=== PATIENT | female | born 1955 | race Hispanic/Latino ===

== ENCOUNTER 2018-07-27 03:24 | Emergency (ER) | payer SELFPAY ==
[2012-03-28 12:02] VITALS: BP 110/68
[2018-07-27] MEDS ORDERED: NA CHLORIDE 0.9% 1,000 ML ONE (03:57)
[2018-07-27] MEDS ORDERED: MORPHINE 4 MG/ML SYR ONE (03:57)
[2018-07-27] MEDS ORDERED: ONDANSETRON 4 MG/2 ML VIAL ONE (03:57)
[2018-07-27 04:00] LABS: Absolute Lymphocytes (CBC) 1.3 K/uL (0.7-4.9); Absolute Monocytes 0.6 K/uL (0.1-1.3); Absolute Neutrophil 5.2 K/uL (1.8-8.0); Basophils % 0.6 % (0-1.3); Eosinophils % 1.9 % (0-4.4); Hematocrit 41.2 % (36.0-45.0); Lymphocytes % 17.6 % (15.3-44.8); MCH 30.9 pg (27.0-35.0); MCV 90.6 fL (80-100); MPV 10.6 fL (7.6-11.3); Monocytes % 8.7 % (3.3-12.3); Protime INR 1.02; RBC Red Blood Cell Count 4.55 M/uL (3.86-4.86)
[2018-07-27 04:28] LABS: ALT/SGPT 25 U/L (12-78); AST/SGOT 16 U/L (15-37); Albumin 3.1 g/dL (3.4-5.0); Alkaline Phosphatase 145 U/L (45-117); BUN Blood Urea Nitrogen 11 mg/dL (7-18); Bicarbonate 25 mmol/L (21-32); Bilirubin Direct 0.2 mg/dL (0-0.2); Bilirubin Total 0.4 mg/dL (0.2-1.0); Lipase 208 U/L (73-393); Magnesium 1.8 mg/dL (1.8-2.4); NT PRO-BNP 20 pg/mL (<125); Protein, Total 7.1 g/dL (6.4-8.2); Sodium Level 136 mmol/L (136-145); Troponin (Emerg Dept Use Only) < 0.02 ng/mL (0.0-0.045)
[2018-07-27 04:29] LABS: Glucose Level 421 mg/dL (74-106)
[2018-07-27] MEDS ORDERED: INSULIN -REGULAR HUMAN 50 UNIT/0.5 ML ML ONE (05:06)
--- NOTE | 2018-07-27 05:21 | EDPHYS ---
Physician Documentation [facility] Name: Latoya Pfeiffer Age: 62 yrs Sex: Female : 1955 Arrival Date: 07/27/2018 Time: 03:26 Bed 15 Private MD: ED Physician Sriram Erazo HPI: 07/27 03:35 This 62 yrs old Female presents to ER via EMS with complaints of chest wall sandra pain,since hug. 03:35 The patient or guardian reports chest pain that is located primarily in the anterior sandra chest wall. Onset: 3 day(s) ago. The pain does not radiate. The patient or guardian reports chest pain that is located primarily in the substernal area, anterior chest wall. Onset: The symptoms/episode began/occurred 3 day(s) ago. The pain does not radiate. Associated signs and symptoms: The patient has no apparent associated signs or symptoms. Historical: - Allergies: 03:20 No Known Allergies; cc3 - PMHx: 03:20 Anxiety; Diabetes - NIDDM; insomnia; cc3 - PSHx: 03:20 ; abdominal tumor removal; Tubal ligation; hernia operations; Cholecystectomy; cc3 Hysterectomy; - Immunization history:: Adult Immunizations not up to date. - Social history:: Smoking status: Patient/guardian denies using tobacco, never smoked. - Family history:: not pertinent. - Ebola Screening: : No symptoms or risks identified at this time. ROS: 03:35 Constitutional: Negative for fever, chills, and weight loss, Eyes: Negative for injury, sandra pain, redness, and discharge, ENT: Negative for injury, pain, and discharge, Neck: Negative for injury, pain, and swelling, Respiratory: Negative for shortness of breath, cough, wheezing, and pleuritic chest pain, Abdomen/GI: Negative for abdominal pain, nausea, vomiting, diarrhea, and constipation, Back: Negative for injury and pain, : Negative for injury, bleeding, discharge, and swelling, MS/Extremity: Negative for injury and deformity, Skin: Negative for injury, rash, and discoloration, Neuro: Negative for headache, weakness, numbness, tingling, and seizure, Psych: Negative for depression, anxiety, suicide ideation, homicidal ideation, and hallucinations, Allergy/Immunology: Negative for hives, rash, and allergies, Endocrine: Negative for neck swelling, polydipsia, polyuria, polyphagia, and marked weight changes, Hematologic/Lymphatic: Negative for swollen nodes, abnormal bleeding, and unusual bruising. 03:35 Cardiovascular: Positive for chest pain, with movement, of the chest. Exam: 03:35 Constitutional: This is a well developed, well nourished patient who is awake, alert, sandra and in no acute distress. Head/Face: Normocephalic, atraumatic. Eyes: Pupils equal round and reactive to light, extra-ocular motions intact. Lids and lashes normal. Conjunctiva and sclera are non-icteric and not injected. Cornea within normal limits. Periorbital areas with no swelling, redness, or edema. ENT: Nares patent. No nasal discharge, no septal abnormalities noted. Tympanic membranes are normal and external auditory canals are clear. Oropharynx with no redness, swelling, or masses, exudates, or evidence of obstruction, uvula midline. Mucous membranes moist. Neck: Trachea midline, no thyromegaly or masses palpated, and no cervical lymphadenopathy. Supple, full range of motion without nuchal rigidity, or vertebral point tenderness. No Meningismus. Cardiovascular: Regular rate and rhythm with a normal S1 and S2. No gallops, murmurs, or rubs. Normal PMI, no JVD. No pulse deficits. Respiratory: Lungs have equal breath sounds bilaterally, clear to auscultation and percussion. No rales, rhonchi or wheezes noted. No increased work of breathing, no retractions or nasal flaring. Abdomen/GI: Soft, non-tender, with normal bowel sounds. No distension or tympany. No guarding or rebound. No evidence of tenderness throughout. Back: No spinal tenderness. No costovertebral tenderness. Full range of motion. Skin: Warm, dry with normal turgor. Normal color with no rashes, no lesions, and no evidence of cellulitis. MS/ Extremity: Pulses equal, no cyanosis. Neurovascular intact. Full, normal range of motion. Neuro: Awake and alert, GCS 15, oriented to person, place, time, and situation. Cranial nerves II-XII grossly intact. Motor strength 5/5 in all extremities. Sensory grossly intact. Cerebellar exam normal. Normal gait. Psych: Awake, alert, with orientation to person, place and time. Behavior, mood, and affect are within normal limits. 03:35 Chest/axilla: Inspection: normal, Palpation: is normal, Axilla: are normal, no acute changes, Breasts: are normal, Lymph nodes: lymphadenopathy is not appreciated. Vital Signs: 03:20 BP 118 / 79; Pulse 80; Resp 20 S; Temp 98.4(O); Pulse Ox 97% on R/A; Weight 76.66 kg cc3 (R); Height 5 ft. (152.40 cm) (R); Pain 10/10; 04:15 BP 106 / 63; Pulse 77; Resp 20 S; Pulse Ox 96% on R/A; cc3 05:30 BP 108 / 62; Pulse 78; Resp 20 S; Pulse Ox 97% on R/A; cc3 06:05 BP 106 / 69; Pulse 74; Resp 18 S; Pulse Ox 97% on R/A; cc3 03:20 Body Mass Index 33.01 (76.66 kg, 152.40 cm) 3 MDM: 03:31 Patient medically screened. [facility] 03:38 Data reviewed: vital signs, nurses notes, lab test result(s), EKG, radiologic studies, [facility] CT scan, plain films. 07/27 03:34 Order name: Basic Metabolic Panel; Complete Time: 04:43 [facility] 07/27 03:34 Order name: CBC with Diff; Complete Time: 04:14 [facility] 07/27 03:34 Order name: LFT's; Complete Time: 04:43 [facility] 07/27 03:34 Order name: Magnesium; Complete Time: 04:43 [facility] 07/27 03:34 Order name: NT PRO-BNP; Complete Time: 04:43 [facility] 07/27 03:34 Order name: PT-INR; Complete Time: 04:14 [facility] 07/27 03:34 Order name: Troponin (emerg Dept Use Only); Complete Time: 04:43 [facility] 07/27 03:34 Order name: XRAY Chest (1 view) [facility] 07/27 03:34 Order name: Lipase; Complete Time: 04:43 [facility] 07/27 03:34 Order name: CT Chest For PE Angio [facility] 07/27 03:34 Order name: Urine Culture [facility] 07/27 05:23 Order name: Troponin (emerg Dept Use Only) [facility] 07/27 05:23 Order name: Troponin (Emerg Dept Use Only) [facility] 07/27 05:37 Order name: Urine Dipstick--Ancillary (enter results) 07/27 03:34 Order name: EKG; Complete Time: 03:36 [facility] 07/27 03:34 Order name: Cardiac monitoring; Complete Time: 03:41 [facility] 07/27 03:34 Order name: EKG - Nurse/Tech; Complete Time: 03:41 [facility] 07/27 03:34 Order name: IV Saline Lock; Complete Time: 03:44 [facility] 07/27 03:34 Order name: Labs collected and sent; Complete Time: 03:54 [facility] 07/27 03:34 Order name: O2 Per Protocol; Complete Time: 03:44 [facility] 07/27 03:34 Order name: O2 Sat Monitoring; Complete Time: 03:44 [facility] 07/27 03:34 Order name: Urine Dipstick-Ancillary (obtain specimen); Complete Time: 05:40 [facility] 07/27 04:15 Order name: INCENTIVE SPIROMETRY sandra Administered Medications: 03:50 Drug: NS 0.9% 1000 ml Route: IV; Rate: 125 ml/hr; Site: right antecubital; cc3 06:25 Follow up: Response: No adverse reaction; IV Intake: 250ml ; patient discharged home cc3 03:50 Drug: Zofran 4 mg Route: IVP; Site: right antecubital; cc3 04:15 Follow up: Response: No adverse reaction; Nausea is decreased cc3 03:55 Drug: morphine 2 mg Route: IVP; Site: right antecubital; cc3 04:30 Follow up: Response: No adverse reaction; Pain is decreased cc3 05:15 Drug: morphine 2 mg Route: IVP; Site: right antecubital; cc3 05:45 Follow up: Response: No adverse reaction; Pain is decreased cc3 05:15 Drug: Insulin Regular Human 10 units {Co-Signature: krishna (Selena Preciado RN).} Route: IVP; cc3 Site: right antecubital; 06:00 Follow up: Response: No adverse reaction cc3 05:20 Drug: Insulin Regular Human 6 units {Co-Signature: krishna (Selena Preciado RN).} Route: cc3 Sub-Q; Site: left upper arm; 06:00 Follow up: Response: No adverse reaction cc3 05:30 Drug: Zithromax 500 mg Route: PO; cc3 06:00 Follow up: Response: No adverse reaction cc3 Disposition: 07/27/18 05:20 Discharged to Home. Impression: Other chest pain, Contusion of front wall of thorax, Contusion of back wall of thorax, Type 2 diabetes mellitus. - Condition is Stable. - Discharge Instructions: Nonspecific Chest Pain, Chest Wall Pain, Type 2 Diabetes Mellitus, Diagnosis, Adult, Chest Wall Pain, [id number], Nonspecific Chest Pain, [id number], Aspirin and Your Heart, Type 2 Diabetes Mellitus, Diagnosis, Adult, Unmj-il-[id number], Type 2 Diabetes Mellitus, Self Care, Adult. - Prescriptions for Tylenol- Codeine #3 300-30 mg Oral Tablet - take 2 tablets by ORAL route every 6 hours As needed; 26 tablet. Motrin IB 200 mg Oral Tablet - take 2 tablet by ORAL route every 6 hours As needed as needed with food; 20 tablet. Zithromax 500 mg Oral Tablet - take 1 tablet by ORAL route once daily for 4 days; 4 tablet. - Medication Reconciliation Form, Thank You Letter, Antibiotic Education, Prescription Opioid Use, Work release form form. - Follow up: Private Physician; When: 2 - 3 days; Reason: Recheck today's complaints, Continuance of care, Re-evaluation by your physician. Follow up: Jono Weller; When: 2 - 3 days; Reason: Recheck today's complaints, Re-evaluation by your physician. - Problem is new. - Symptoms have improved. Signatures: Dispatcher [employer] EDFL Sriram Erazo MD MD cha Cordel, Charlene 3 Selena Preciado RN, ea Corrections: (The following items were deleted from the chart) 06:29 05:20 07/27/2018 05:20 Discharged to Home. Impression: Other chest pain; Contusion of cc3 front wall of thorax; Contusion of back wall of thorax; Type 2 diabetes mellitus. Condition is Stable. Discharge Instructions: Nonspecific Chest Pain, Chest Wall Pain, Type 2 Diabetes Mellitus, Diagnosis, Adult, Nonspecific Chest Pain, [id number], Aspirin and Your Heart, Type 2 Diabetes Mellitus, Diagnosis, Adult, Ulyp-qu-Jlwt, Chest Wall Pain, [id number]-[id number]. Prescriptions for Tylenol-Codeine #3 300-30 mg Oral Tablet - take 2 tablets by ORAL route every 6 hours As needed; 26 tablet, Motrin IB 200 mg Oral Tablet - take 2 tablet by ORAL route every 6 hours As needed as needed with food; 20 tablet. and Forms are Medication Reconciliation Form, Thank You Letter, Antibiotic Education, Prescription Opioid Use. Follow up: Private Physician; When: 2 - 3 days; Reason: Recheck today's complaints, Continuance of care, Re-evaluation by your physician. Follow up: Jono Weller; When: 2 - 3 days; Reason: Recheck today's complaints, Re-evaluation by your physician. Problem is new. Symptoms have improved. sandra
--- NOTE | 2018-07-27 05:21 | ER ---
Nurse's Notes [facility] Name: Latoya Pfeiffer Age: 62 yrs Sex: Female : 1955 Arrival Date: 07/27/2018 Time: 03:26 Bed 15 Private MD: Diagnosis: Other chest pain;Contusion of front wall of thorax;Contusion of back wall of thorax;Type 2 diabetes mellitus Presentation: 07/27 03:20 Presenting complaint: EMS states: Left sided chest pain since Wednesday. Transition of cc3 care: patient was not received from another setting of care. Onset of symptoms was July 23, 2018. Risk Assessment: Do you want to hurt yourself or someone else? Patient reports no desire to harm self or others. Initial Sepsis Screen: Does the patient meet any 2 criteria? No. Patient's initial sepsis screen is negative. Does the patient have a suspected source of infection? No. Patient's initial sepsis screen is negative. Care prior to arrival: Medication(s) given: ASA, 324 mg oral given by EMS. 03:20 Method Of Arrival: EMS: [facility] cc3 03:20 Acuity: LUCINA 3 cc3 Triage Assessment: 03:20 General: Appears in no apparent distress. uncomfortable, Behavior is calm, cooperative, cc3 appropriate for age. Pain: Complains of pain in left side of the chest Pain currently is 10 out of 10 on a pain scale. Quality of pain is described as aching. EENT: No signs and/or symptoms were reported regarding the EENT system. Neuro: Level of Consciousness is awake, alert, obeys commands, Oriented to person, place, time, situation, Appropriate for age. Cardiovascular: Reports chest pain, since wednesday. Respiratory: Airway is patent Respiratory effort is even, unlabored, Respiratory pattern is regular, symmetrical. GI: Abdomen is round obese. : No signs and/or symptoms were reported regarding the genitourinary system. Derm: No signs and/or symptoms reported regarding the dermatologic system. Musculoskeletal: Circulation, motion, and sensation intact. Range of motion: intact in all extremities. Historical: - Allergies: 03:20 No Known Allergies; cc3 - PMHx: 03:20 Anxiety; Diabetes - NIDDM; insomnia; cc3 - PSHx: 03:20 ; abdominal tumor removal; Tubal ligation; hernia operations; Cholecystectomy; cc3 Hysterectomy; - Immunization history:: Adult Immunizations not up to date. - Social history:: Smoking status: Patient/guardian denies using tobacco, never smoked. - Family history:: not pertinent. - Ebola Screening: : No symptoms or risks identified at this time. Screenin:20 Abuse screen: Denies threats or abuse. Denies injuries from another. Nutritional cc3 screening: No deficits noted. Tuberculosis screening: No symptoms or risk factors identified. Fall Risk Ambulatory Aid- None/Bed Rest/Nurse Assist (0 pts). Gait- Normal/Bed Rest/Wheelchair (0 pts) Mental Status- Oriented to own ability (0 pts). Assessment: 03:20 General: see triage assessment. cc3 04:30 Reassessment: Patient appears in no apparent distress at this time. Patient and/or cc3 family updated on plan of care and expected duration. Pain level reassessed. Patient is alert, oriented x 3, equal unlabored respirations, skin warm/dry/pink. 05:20 Reassessment: Patient appears in no apparent distress at this time. Patient and/or cc3 family updated on plan of care and expected duration. Pain level reassessed. Patient is alert, oriented x 3, equal unlabored respirations, skin warm/dry/pink. 06:00 Reassessment: Seen by RT and taught how to use incentive spirometry with reading of cc3 2,000. 06:25 Reassessment: Patient appears in no apparent distress at this time. Patient and/or cc3 family updated on plan of care and expected duration. Pain level reassessed. Patient is alert, oriented x 3, equal unlabored respirations, skin warm/dry/pink. Repeat Troponin negative, Dr. Erazo discharged the patient home with prescription given. IV cannula removed and patient left ER vitally stable and ambulatory. Vital Signs: 03:20 BP 118 / 79; Pulse 80; Resp 20 S; Temp 98.4(O); Pulse Ox 97% on R/A; Weight 76.66 kg cc3 (R); Height 5 ft. (152.40 cm) (R); Pain 10/10; 04:15 BP 106 / 63; Pulse 77; Resp 20 S; Pulse Ox 96% on R/A; cc3 05:30 BP 108 / 62; Pulse 78; Resp 20 S; Pulse Ox 97% on R/A; cc3 06:05 BP 106 / 69; Pulse 74; Resp 18 S; Pulse Ox 97% on R/A; cc3 03:20 Body Mass Index 33.01 (76.66 kg, 152.40 cm) cc3 ED Course: 03:20 Maintain EMS IV. Dressing intact. Good blood return noted. Site clean \T\ dry. Gauge \T\ cc 3 site: gauge 20 right ACV. 03:20 Arm band placed on right wrist. cc3 03:20 Patient has correct armband on for positive identification. Bed in low position. Call cc3 light in reach. Side rails up X 1. classroom monitor on. Pulse ox on. NIBP on. 03:26 Patient arrived in ED. al2 03:30 Sriram Erazo MD is Attending Physician. sandra 03:32 Claudia Pemberton is Primary Nurse. cc3 03:35 Triage completed. cc3 04:05 X-ray completed. Portable x-ray completed in exam room. Patient tolerated procedure kw well. 04:07 XRAY Chest (1 view) In Process Unspecified. EDMS 04:13 Radiology exam delayed due to lab results not completed at this time. (BUN/Creatinine). vr 04:[address] via stretcher. kw1 05:03 CT Chest For PE Angio In Process Unspecified. EDMS 05:04 CT completed. Patient tolerated procedure well. Patient moved back from CT. kw1 05:20 Jono Weller MD is Referral Physician. sandra 06:25 No provider procedures requiring assistance completed. IV discontinued, intact, cc3 bleeding controlled, No redness/swelling at site. Pressure dressing applied. Administered Medications: 03:50 Drug: NS 0.9% 1000 ml Route: IV; Rate: 125 ml/hr; Site: right antecubital; cc3 06:25 Follow up: Response: No adverse reaction; IV Intake: 250ml ; patient discharged home cc3 03:50 Drug: Zofran 4 mg Route: IVP; Site: right antecubital; cc3 04:15 Follow up: Response: No adverse reaction; Nausea is decreased cc3 03:55 Drug: morphine 2 mg Route: IVP; Site: right antecubital; cc3 04:30 Follow up: Response: No adverse reaction; Pain is decreased cc3 05:15 Drug: morphine 2 mg Route: IVP; Site: right antecubital; cc3 05:45 Follow up: Response: No adverse reaction; Pain is decreased cc3 05:15 Drug: Insulin Regular Human 10 units {Co-Signature: krishna (Selena Preciado RN).} Route: IVP; cc3 Site: right antecubital; 06:00 Follow up: Response: No adverse reaction cc3 05:20 Drug: Insulin Regular Human 6 units {Co-Signature: krishna (Selena Preciado RN).} Route: cc3 Sub-Q; Site: left upper arm; 06:00 Follow up: Response: No adverse reaction cc3 05:30 Drug: Zithromax 500 mg Route: PO; cc3 06:00 Follow up: Response: No adverse reaction cc3 Intake: 06:25 IV: 250ml; Total: 250ml. cc3 Outcome: 05:20 Discharge ordered by MD. flores 06:25 Discharged to home ambulatory. cc3 06:25 Condition: stable 06:25 Discharge instructions given to patient, Instructed on discharge instructions, follow up and referral plans. medication usage, Demonstrated understanding of instructions, follow-up care, medications, Prescriptions given X 3. 06:29 Patient left the ED. cc3 Signatures: Dispatcher [employer] EDMS Sriram Erazo MD MD cha Davis, Victoria vr Whitley, Kimberlee kw Wilhelm, Kimberly kw1 Love, Angelica al2 Cordel, Charlene cc3 Selena Preciado RN, ea
[2018-07-27] MEDS ORDERED: AZITHROMYCIN 250 MG TAB ONE (05:35)
[2018-07-27 06:18] LABS: Urine Blood NEGATIVE (NEG); Urine Glucose 2+ (NEG); Urine Protein NEGATIVE (NEG); Urine Specific Gravity <1.005 (1.005-1.030); Urine pH 5.5 (5.0-7.0)
--- NOTE | 2018-07-27 08:19 | RAD REPORT ---
EXAM DESCRIPTION: CT - Chest For Pe Angio - 07/27/2018 5:56 am CLINICAL HISTORY: Chest pain COMPARISON: 2006 TECHNIQUE: Dynamically enhanced axial 3 mm thick images of the chest were obtained during administra tion of <100> mL Isovue 370 IV contrast. Coronal and oblique reconstruction images were generated and reviewed. Exam utilizes a protocol for optimal evaluation of pulmonary arterial tree. Maximum intensity projections 3D imaging was utilized All CT scans are performed using dose optimization technique as appropriate and may include automated exposure control or mA/KV adjustment according to patient size. FINDINGS: A pulmonary embolus is not seen. A thoracic aortic aneurysm is not noted. A bovine aorta A pleural effusion is not seen. A pericardial effusion is not seen. A lung consolidation is not present. Mild bibasilar ground-glass opacities Fatty infiltration liver IMPRESSION: Negative for a pulmonary embolism.
--- NOTE | 2018-07-27 08:49 | RAD REPORT ---
EXAM DESCRIPTION: [facility] Single View07/27/2018 4:07 am CLINICAL HISTORY: Chest pain COMPARISON: 2014 FINDINGS: The lungs appear clear of acute infiltrate. The heart is upper limits normal size IMPRESSION: No acute abnormalities displayed
== END 2018-07-27 06:29 | disposition home or self-care (01) ==
LOC: ER 03:24
DX: S20.219A Contusion of unspecified front wall of thorax, initial encounter (principal); S20.229A Contusion of unspecified back wall of thorax, initial encounter; X58.XXXA Exposure to other specified factors, initial encounter; Y93.9 Activity, unspecified; Y92.9 Unspecified place or not applicable; E11.9 Type 2 diabetes mellitus without complications
CPT/HCPCS: 36415; 71045; 71275; 80048; 80076; 81003; 83690; 83735; 83880; 84484; 85025; 85610; 87077; 87086; 87088; 87186; 93005; 96372; 96374; 96375; 99285; J2405; J7030; Q9967

== ENCOUNTER 2018-08-01 12:13 | Emergency (ER) | payer OTHER, SELFPAY ==
[2018-08-01 13:10] LABS: Absolute Lymphocytes (CBC) 1.3 K/uL (0.7-4.9); Absolute Monocytes 0.5 K/uL (0.1-1.3); Absolute Neutrophil 4.2 K/uL (1.8-8.0); Eosinophils % 2.7 % (0-4.4); Hematocrit 41.5 % (36.0-45.0); MCH 31.1 pg (27.0-35.0); MCV 89.1 fL (80-100); Monocytes % 7.3 % (3.3-12.3); RBC Red Blood Cell Count 4.66 M/uL (3.86-4.86)
[2018-08-01 13:13] LABS: Protime INR 1.08
[2018-08-01 13:31] LABS: ALT/SGPT 30 U/L (12-78); AST/SGOT 25 U/L (15-37); Albumin 3.1 g/dL (3.4-5.0); Alkaline Phosphatase 122 U/L (45-117); BUN Blood Urea Nitrogen 12 mg/dL (7-18); Bicarbonate 27 mmol/L (21-32); Bilirubin Total 0.5 mg/dL (0.2-1.0); Glucose Level 279 mg/dL (74-106); Magnesium 1.9 mg/dL (1.8-2.4); NT PRO-BNP 98 pg/mL (<125); Protein, Total 7.4 g/dL (6.4-8.2); Sodium Level 138 mmol/L (136-145); Troponin (Emerg Dept Use Only) < 0.02 ng/mL (0.0-0.045)
--- NOTE | 2018-08-01 13:36 | RAD REPORT ---
EXAM DESCRIPTION: [facility] Single View08/01/2018 1:27 pm CLINICAL HISTORY: Chest pain COMPARISON: July 27, 2018 FINDINGS: The lungs appear clear of acute infiltrate. The heart is borderline enlarged IMPRESSION: No acute abnormalities displayed
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
--- NOTE | 2018-08-01 14:01 | EKG ---
Test Date: 2018-08-01 Test Time: 12:25:18 Brass Pourer: EVANS MEASUREMENT RESULTS: Intervals: Rate: 75 MA: 158 QRSD: 80 QT: 388 QTc: 433 [place]: P: -6 MA: 158 QRS: -23 T: 26 INTERPRETIVE STATEMENTS: Normal sinus rhythm Normal ECG Compared to ECG 07/27/2018 03:36:42 No significant changes Electronically Signed On 08-01-18 14:00:22 TECH ED/WOODSHOP TEACHER by Efra Moore
[2018-08-01 14:38] VITALS: TEMP 96
[2018-08-01 14:47] VITALS: BP 126/74; O2SAT 96
[2018-08-01] MEDS ORDERED: IPRATROPIUM BROM 0.5MG/2.5ML ONE (16:15)
[2018-08-01] MEDS ORDERED: ALBUTEROL 2.5 MG/3 ML NEB SOL ONE (16:15)
== END 2018-08-01 14:32 | disposition home or self-care (01) ==
LOC: ER 12:13
DX: M94.0 Chondrocostal junction syndrome [Tietze] (principal)
CPT/HCPCS: 36415; 71045; 80053; 83735; 83880; 84484; 85025; 85610; 93005; 99285

== ENCOUNTER 2018-09-29 14:51 | Emergency (ER) | payer OTHER ==
--- NOTE | 2018-09-29 16:15 | RAD REPORT ---
EXAM DESCRIPTION: RAD - Chest Pa And Lat (2 Views) - 09/29/2018 3:45 pm CLINICAL HISTORY: Cough, abdominal pain, bloating COMPARISON: July 2018 TECHNIQUE: PA and lateral views of the chest were obtained. FINDINGS: The lungs are normal volume. Patient has a baseline of chronic interstitial lung disease t hat is similar to July. There is hazy ill-defined opacification in the anterior mid left lung fie ld questionable for early infiltrate. Mass lesion is unlikely. Heart size is normal. Upper lobe vas culature within normal limits. No pleural effusion or pneumothorax seen. No acute bony finding noted . No acute aortic finding. Tortuosity accentuates the mediastinum. IMPRESSION: Hazy anterior mid left lung field opacification questionable for early infiltrate. Prominent interstitial pattern not substantially different from comparison. Mild failure, interstitia l edema or volume overload could be masked.
[2018-09-29] MEDS ORDERED: ONDANSETRON 4 MG/2 ML VIAL ONE (16:22)
[2018-09-29] MEDS ORDERED: NA CHLORIDE 0.9% 1,000 ML ONE (16:22)
[2018-09-29 16:33] LABS: Urine Blood NEGATIVE (NEG); Urine Glucose 2+ (NEG); Urine Protein NEGATIVE (NEG); Urine pH 5.5 (5.0-7.0)
[2018-09-29 16:37] LABS: ALT/SGPT 46 U/L (12-78); AST/SGOT 52 U/L (15-37); Albumin 3.4 g/dL (3.4-5.0); Alkaline Phosphatase 187 U/L (45-117); BUN Blood Urea Nitrogen 13 mg/dL (7-18); Bicarbonate 26 mmol/L (21-32); Bilirubin Direct < 0.1 mg/dL (0-0.2); Bilirubin Total 0.3 mg/dL (0.2-1.0); Glucose Level 380 mg/dL (74-106); Lipase 104 U/L (73-393); Protein, Total 7.8 g/dL (6.4-8.2); Sodium Level 140 mmol/L (136-145)
[2018-09-29] MEDS ORDERED: KETOROLAC 30 MG/ML INJ ONE (16:52)
[2018-09-29 17:17] LABS: Absolute Lymphocytes (CBC) 1.7 K/uL (0.7-4.9); Absolute Monocytes 0.6 K/uL (0.1-1.3); Absolute Neutrophil 4.5 K/uL (1.8-8.0); Basophils % 1.3 % (0-1.3); Eosinophils % 2.4 % (0-4.4); Hematocrit 39.9 % (36.0-45.0); Lymphocytes % 23.7 % (15.3-44.8); Monocytes % 8.5 % (3.3-12.3); RBC Red Blood Cell Count 4.41 M/uL (3.86-4.86)
[2018-09-29] MEDS ORDERED: CEFTRIAXONE/SWI 1gm 1 GM/10 ML SYR ONE (17:27)
[2018-09-29] MEDS ORDERED: BENZONATATE 100 MG CAP PO ONE (17:27)
--- NOTE | 2018-09-29 17:47 | ER ---
Nurse's Notes [facility] Name: Latoya Pfeiffer Age: 62 yrs Sex: Female : 1955 Arrival Date: 09/29/2018 Time: 14:55 Bed 16 Private MD: Flip Bates H Diagnosis: Pneumonia, unspecified organism Presentation: 09/29 15:05 Presenting complaint: Patient states: Abdominal bloating and swelling for 1 day, sg reports having been coughing today with green mucous, the coughing makes my chest hurt, reports Nausea/Vomiting, denies fever/diarrhea, reports having had dizziness this morning before work but the dizziness is gone at this time. Transition of care: patient was not received from another setting of care. Onset of symptoms was September 29, 2018. Risk Assessment: Do you want to hurt yourself or someone else? Patient reports no desire to harm self or others. Initial Sepsis Screen: Does the patient meet any 2 criteria? No. Patient's initial sepsis screen is negative. Does the patient have a suspected source of infection? No. Patient's initial sepsis screen is negative. Care prior to arrival: None. 15:05 Method Of Arrival: Ambulatory sg 15:05 Acuity: LUCINA 3 sg Historical: - Allergies: 14:56 No Known Allergies; sg - PMHx: 14:56 Anxiety; Diabetes - NIDDM; insomnia; sg - PSHx: 14:56 ; abdominal tumor removal; Tubal ligation; Cholecystectomy; Hysterectomy; sg hernia operations; - Immunization history:: Adult Immunizations up to date. - Social history:: Smoking status: Patient/guardian denies using tobacco. - Ebola Screening: : Patient negative for fever greater than or equal to 101.5 degrees Fahrenheit, and additional compatible Ebola Virus Disease symptoms Patient denies exposure to infectious person Patient denies travel to an Ebola-affected area in the 21 days before illness onset No symptoms or risks identified at this time. Screenin:29 Abuse screen: Denies threats or abuse. Denies injuries from another. Nutritional aj screening: No deficits noted. Tuberculosis screening: No symptoms or risk factors identified. Fall Risk None identified. Assessment: 17:00 General: Appears in no apparent distress. comfortable, Behavior is calm, cooperative, aj appropriate for age. Pain: Denies pain. Neuro: Level of Consciousness is awake, alert, obeys commands, Oriented to person, place, time, situation, Appropriate for age. Respiratory: Reports shortness of breath cough that is Airway is patent Respiratory effort is even, unlabored, Respiratory pattern is regular, symmetrical. GI: Reports nausea. Derm: Skin is intact, is healthy with good turgor, Skin is pink, warm \T\ dry. normal. 18:05 Reassessment: Patient appears in no apparent distress at this time. No changes from aj previously documented assessment. Patient and/or family updated on plan of care and expected duration. Pain level reassessed. Patient is alert, oriented x 3, equal unlabored respirations, skin warm/dry/pink. Patient states feeling better. Vital Signs: 15:07 Pulse 87; Resp 17 S; Temp 98.8; Pulse Ox 97% on R/A; Weight 86.18 kg (R); Height 5 ft. sg 0 in. (152.40 cm); Pain 10/10; 15:08 BP 133 / 72; sg 17:30 BP 137 / 81; Pulse 78; Resp 20; Pulse Ox 97% on R/A; aj 15:07 Body Mass Index 37.11 (86.18 kg, 152.40 cm) sg ED Course: 14:55 Patient arrived in ED. mr 14:55 Flip Bates DO is Private Physician. mr 14:57 Arm band placed on. sg 15:03 Jessenia Arvizu, RN is Primary Nurse. aj 15:06 Triage completed. sg 15:07 Deniz Bear, JEREMI is PHCP. pm1 15:07 Sriram Erazo MD is Attending Physician. pm1 15:44 Chest Pa And Lat (2 Views) XRAY In Process Unspecified. EDMS 16:09 Inserted saline lock: 20 gauge in left hand, using aseptic technique. bp 17:46 Flip Bates DO is Referral Physician. pm1 18:05 Placed in gown. aj 18:05 No provider procedures requiring assistance completed. IV discontinued, intact, aj bleeding controlled, No redness/swelling at site. Pressure dressing applied. Administered Medications: 16:17 Drug: NS 0.9% 1000 ml Route: IV; Rate: 1000 ml; Site: left hand; aj 16:18 Drug: Zofran 4 mg Route: IVP; Site: left hand; aj 17:28 Follow up: Response: Nausea is decreased aj 16:50 Drug: TORadol 30 mg Route: IVP; Site: left hand; aj 17:27 Follow up: Response: No adverse reaction; Nausea is decreased aj 17:10 CANCELLED (Inappropriate at this time; Patient drove herself to ER): Tussionex aj Pennkinetic ER 5 ml PO once 17:27 Drug: Rocephin 1 grams Route: IV; Rate: calculated rate; Site: left hand; aj 17:27 Drug: Tessalon Perle 100 mg Route: PO; aj 18:10 Follow up: Response: No adverse reaction aj Outcome: 17:47 Discharge ordered by MD. pm1 18:11 Patient left the ED. aj Signatures: Dispatcher [employer] EDMS Shilo Skinner RN RN Jessenia Ovalles RN RN aj Rivera, Mary mr ChemaDeniz, IT COMPLIANCE ANALYST IT COMPLIANCE ANALYST pm1 Lucio Saha RN RN bp
--- NOTE | 2018-09-29 17:47 | EDPHYS ---
Physician Documentation [facility] Name: Latoya Pfeiffer Age: 62 yrs Sex: Female : 1955 Arrival Date: 09/29/2018 Time: 14:55 Bed 16 Private MD: Flip Bates H ED Physician Sriram Erazo HPI: 09/29 16:00 This 62 yrs old Female presents to ER via Ambulatory with complaints of Cough. pm1 16:00 The patient or guardian reports cough, with productive sputum, that is green. Onset: pm1 The symptoms/episode began/occurred 3 day(s) ago. Severity of symptoms: in the emergency department the symptoms are actually worse. Modifying factors: The symptoms are alleviated by nothing, the symptoms are aggravated by nothing. Associated signs and symptoms: Pertinent positives: nausea, sore throat, Pertinent negatives: chest pain, fever. The patient has not experienced similar symptoms in the past. The patient has not recently seen a physician. Historical: - Allergies: 14:56 No Known Allergies; sg - PMHx: 14:56 Anxiety; Diabetes - NIDDM; insomnia; sg - PSHx: 14:56 ; abdominal tumor removal; Tubal ligation; Cholecystectomy; Hysterectomy; sg hernia operations; - Immunization history:: Adult Immunizations up to date. - Social history:: Smoking status: Patient/guardian denies using tobacco. - Ebola Screening: : Patient negative for fever greater than or equal to 101.5 degrees Fahrenheit, and additional compatible Ebola Virus Disease symptoms Patient denies exposure to infectious person Patient denies travel to an Ebola-affected area in the 21 days before illness onset No symptoms or risks identified at this time. ROS: 16:00 Constitutional: Negative for fever, chills, and weight loss, Eyes: Negative for injury, pm1 pain, redness, and discharge, ENT: Negative for injury, pain, and discharge, Neck: Negative for injury, pain, and swelling, Cardiovascular: Negative for chest pain, palpitations, and edema. 16:00 Back: Negative for injury and pain, : Negative for injury, bleeding, discharge, and swelling, MS/Extremity: Negative for injury and deformity, Skin: Negative for injury, rash, and discoloration, Neuro: Negative for headache, weakness, numbness, tingling, and seizure. 16:00 Respiratory: Positive for cough, Negative for shortness of breath, wheezing. 16:00 Abdomen/GI: Positive for abdominal pain, nausea, Negative for vomiting, diarrhea. Exam: 16:00 Constitutional: This is a well developed, well nourished patient who is awake, alert, pm1 and in no acute distress. Head/Face: Normocephalic, atraumatic. Eyes: Pupils equal round and reactive to light, extra-ocular motions intact. Lids and lashes normal. Conjunctiva and sclera are non-icteric and not injected. Cornea within normal limits. Periorbital areas with no swelling, redness, or edema. ENT: Nares patent. No nasal discharge, no septal abnormalities noted. Tympanic membranes are normal and external auditory canals are clear. Oropharynx with no redness, swelling, or masses, exudates, or evidence of obstruction, uvula midline. Mucous membranes moist. Neck: Trachea midline, no thyromegaly or masses palpated, and no cervical lymphadenopathy. Supple, full range of motion without nuchal rigidity, or vertebral point tenderness. No Meningismus. Chest/axilla: Normal chest wall appearance and motion. Nontender with no deformity. No lesions are appreciated. Cardiovascular: Regular rate and rhythm with a normal S1 and S2. No gallops, murmurs, or rubs. Normal PMI, no JVD. No pulse deficits. Respiratory: Lungs have equal breath sounds bilaterally, clear to auscultation and percussion. No rales, rhonchi or wheezes noted. No increased work of breathing, no retractions or nasal flaring. 16:00 Back: No spinal tenderness. No costovertebral tenderness. Full range of motion. Skin: Warm, dry with normal turgor. Normal color with no rashes, no lesions, and no evidence of cellulitis. MS/ Extremity: Pulses equal, no cyanosis. Neurovascular intact. Full, normal range of motion. 16:00 Abdomen/GI: Inspection: abdomen appears normal, Bowel sounds: normal, Palpation: abdomen is soft and non-tender, in all quadrants, mass, is not appreciated, rebound tenderness, is not appreciated. 16:00 Neuro: Orientation: is normal, Motor: is normal, moves all fours. Vital Signs: 15:07 Pulse 87; Resp 17 S; Temp 98.8; Pulse Ox 97% on R/A; Weight 86.18 kg (R); Height 5 ft. sg 0 in. (152.40 cm); Pain 10/10; 15:08 BP 133 / 72; sg 17:30 BP 137 / 81; Pulse 78; Resp 20; Pulse Ox 97% on R/A; aj 15:07 Body Mass Index 37.11 (86.18 kg, 152.40 cm) sg MDM: 15:09 Patient medically screened. [facility] 15:15 Data reviewed: vital signs. Data interpreted: Pulse oximetry: on room air is 97 %. pm1 Interpretation: normal. 17:46 Counseling: I had a detailed discussion with the patient and/or guardian regarding: the pm1 historical points, exam findings, and any diagnostic results supporting the discharge/admit diagnosis, lab results, radiology results, the need for outpatient follow up, to return to the emergency department if symptoms worsen or persist or if there are any questions or concerns that arise at home. 09/29 15:24 Order name: Basic Metabolic Panel; Complete Time: 16:53 pm09/29 15:24 Order name: CBC with Diff; Complete Time: 17:31 pm09/29 15:24 Order name: Hepatic Function; Complete Time: 16:53 pm09/29 15:24 Order name: Lipase; Complete Time: 16:53 pm09/29 15:38 Order name: Flu; Complete Time: 16:36 09/29 16:14 Order name: Urine Dipstick--Ancillary (enter results); Complete Time: 16:34 09/29 15:24 Order name: Chest Pa And Lat (2 Views) XRAY; Complete Time: 16:33 pm09/29 15:24 Order name: IV Saline Lock; Complete Time: 16:09 pm09/29 15:24 Order name: Labs collected and sent; Complete Time: 16:09 09/29 16:12 Order name: Urine Dipstick-Ancillary (obtain specimen); Complete Time: 16:13 pm09/29 16:12 Order name: Urine Test (obtain specimen); Complete Time: 16:13 pm1 Administered Medications: 16:17 Drug: NS 0.9% 1000 ml Route: IV; Rate: 1000 ml; Site: left hand; 16:18 Drug: Zofran 4 mg Route: IVP; Site: left hand; aj 17:28 Follow up: Response: Nausea is decreased aj 16:50 Drug: TORadol 30 mg Route: IVP; Site: left hand; aj 17:27 Follow up: Response: No adverse reaction; Nausea is decreased aj 17:10 CANCELLED (Inappropriate at this time; Patient drove herself to ER): Tussionex aj Pennkinetic ER 5 ml PO once 17:27 Drug: Rocephin 1 grams Route: IV; Rate: calculated rate; Site: left hand; aj 17:27 Drug: Tessalon Perle 100 mg Route: PO; aj 18:10 Follow up: Response: No adverse reaction aj Disposition: 09/30 07:05 Co-signature as Attending Physician, Sriram Erazo MD I agree with the assessment and sandra plan of care. Disposition: 09/29/18 17:47 Discharged to Home. Impression: Pneumonia, unspecified organism. - Condition is Stable. - Discharge Instructions: Community-Acquired Pneumonia, Adult. - Prescriptions for Zithromax Z- Venkatesh 250 mg Oral Tablet - take 1 tablet by ORAL route as directed for 5 days Day 1 - take two (2) tablets one time. Day 2, 3, 4 , 5 take one (1) tablet once daily.; 6 tablet. Guaifenesin AC 10- 100 mg/5 mL Oral Liquid - take 10 milliliter by ORAL route every 4 hours As needed; 240 milliliter. - Work release form, Medication Reconciliation Form, Thank You Letter, Antibiotic Education, Prescription Opioid Use form. - Follow up: Emergency Department; When: As needed; Reason: Worsening of condition. Follow up: Flip Bates DO; When: 2 - 3 days; Reason: Recheck today's complaints, Continuance of care, Re-evaluation by your physician. - Problem is new. - Symptoms have improved. Signatures: Dispatcher [employer] EDMS Shilo Skinner RN Jessenia Maurice RN Sriram Ashley MD MD cha Marinas, Patrick, TANK STORAGE SUPERVISOR TANK STORAGE SUPERVISOR pm1 Corrections: (The following items were deleted from the chart) 09/29 17:10 16:36 Tussionex Pennkinetic ER Suspension 5 ml PO once ordered. pm1 18:11 17:47 09/29/2018 17:47 Discharged to Home. Impression: Pneumonia, unspecified organism. aj Condition is Stable. Forms are Medication Reconciliation Form, Thank You Letter, Antibiotic Education, Prescription Opioid Use. Follow up: Emergency Department; When: As needed; Reason: Worsening of condition. Follow up: Flip Bates; When: 2 - 3 days; Reason: Recheck today's complaints, Continuance of care, Re-evaluation by your physician. Problem is new. Symptoms have improved. pm1
[2018-09-29 18:56] VITALS: TEMP 98.8; O2SAT 97
[2018-09-29 18:59] VITALS: BP 137/81
== END 2018-09-29 18:11 | disposition home or self-care (01) ==
LOC: ER 14:51
DX: J18.9 Pneumonia, unspecified organism (principal)
CPT/HCPCS: 36415; 71046; 80048; 80076; 81003; 83690; 85025; 87804; 96374; 96375; 99283; J0696; J2405; J7030

== ENCOUNTER 2019-02-02 18:49 | Emergency (ER) | payer OTHER ==
[2019-02-02] MEDS ORDERED: ONDANSETRON 4 MG/2 ML VIAL ONE (19:34)
[2019-02-02] MEDS ORDERED: NA CHLORIDE 0.9% 1,000 ML ONE (19:34)
[2019-02-02] MEDS ORDERED: MORPHINE 4 MG/ML SYR ONE (19:34)
[2019-02-02 19:38] LABS: Urine Blood NEGATIVE (NEG); Urine Glucose NEGATIVE (NEG); Urine Protein 1+ (NEG); Urine Specific Gravity >1.030 (1.005-1.030); Urine pH 5.5 (5.0-7.0)
[2019-02-02 19:40] LABS: Absolute Lymphocytes (CBC) 1.5 K/uL (0.7-4.9); Absolute Monocytes 0.6 K/uL (0.1-1.3); Basophils % 2.9 % (0-1.3); Eosinophils % 2.1 % (0-4.4); Hematocrit 40.2 % (36.0-45.0); Lymphocytes % 17.8 % (15.3-44.8); Monocytes % 7.4 % (3.3-12.3); RBC Red Blood Cell Count 4.49 M/uL (3.86-4.86)
--- NOTE | 2019-02-02 19:40 | RAD REPORT ---
EXAM DESCRIPTION: RAD - Knee Right 3 View - 02/02/2019 7:25 pm CLINICAL HISTORY: PAIN COMPARISON: Knee Right 3 View dated 08/13/2015; Knee Right 3 View dated 06/15/2015 FINDINGS: Mild osteoarthritic changes involve the medial joint compartment. No fracture, dislocation or aggressive marrow pattern. No significant joint effusion.
[2019-02-02 19:47] LABS: Urine Bacteria 20-50 /HPF (<20); Urine Culture Reflex Order REFLEXED; Urine RBC <5 /HPF (NONE SEEN)
[2019-02-02 19:57] LABS: Blood Morphology Comment NOT SEEN (NOT SEEN); Platelet Estimate ADEQ; Urine White Blood Cell Casts OK
[2019-02-02 19:58] LABS: Albumin 3.5 g/dL (3.4-5.0); Bilirubin Direct 0.1 mg/dL (0-0.2); Bilirubin Total 0.5 mg/dL (0.2-1.0); Potassium 4.1 mmol/L (3.5-5.1)
--- NOTE | 2019-02-02 20:42 | RAD REPORT ---
EXAM DESCRIPTION: CTAbdomen Pelvis W Contrast - 02/02/2019 8:29 pm CLINICAL HISTORY: Abdominal pain. suprapubic pain, dysuria COMPARISON: Abdomen Pelvis W Contrast dated 09/10/2016; Abdomen Pelvis W Contrast dated 6 TECHNIQUE: Biphasic CT imaging of the abdomen and pelvis was performed with 100 ml non-ionic IV cont rast. All CT scans are performed using dose optimization technique as appropriate and may include automated exposure control or mA/KV adjustment according to patient size. FINDINGS: The lung bases are clear. Fatty liver is seen with nodular liver contour compatible with liver cirrhosis. No aggressive liver l esion or biliary dilatation. Cholecystectomy clips. The spleen, pancreas, left adrenal gland and kidn eys are within normal limits. 15 mm mass is present right adrenal gland, likely benign adenoma. No bowel obstruction, free air, free fluid or abscess. A few mildly prominent small bowel loops are s een in the central upper abdomen, most compatible with a mild enteritis. The appendix is not identifi ed as a discrete structure, however, no secondary findings of appendicitis are identified. No evide nce of significant lymphadenopathy. No suspicious bony findings. IMPRESSION: Mild liver cirrhosis. Mildly prominent and fluid distended small bowel loops in the central upper abdomen could indicate a nonspecific enteritis.
--- NOTE | 2019-02-02 20:56 | ER ---
Nurse's Notes [facility] Name: Latoya Pfeiffer Age: 63 yrs Sex: Female : 1955 Arrival Date: 02/02/2019 Time: 18:51 Bed 30 Private MD: Flip Bates H Diagnosis: Urinary tract infection, site not specified;Pain in right knee Presentation: 02/02 18:52 Presenting complaint: Patient states: i have a really bad abd pain (suprapubic area) hj since this AM; pain is 10/10; reports nausea; denies diarrhea; yesterday my R knee started hurting too; reports swelling on R knee; denies trauma to the area;. Transition of care: patient was not received from another setting of care. Onset of symptoms was February 02, 2019. Risk Assessment: Do you want to hurt yourself or someone else? Patient reports no desire to harm self or others. Initial Sepsis Screen: Does the patient meet any 2 criteria? No. Patient's initial sepsis screen is negative. Does the patient have a suspected source of infection? No. Patient's initial sepsis screen is negative. Care prior to arrival: None. 18:52 Method Of Arrival: Ambulatory hj 18:52 Acuity: LUCINA 3 hj Historical: - Allergies: 18:55 No Known Allergies; hj - PMHx: 18:55 Anxiety; Diabetes - NIDDM; insomnia; hj - PSHx: 18:55 ; abdominal tumor removal; Tubal ligation; Cholecystectomy; Hysterectomy; hj hernia operations; - Immunization history:: Adult Immunizations up to date. - Social history:: Smoking status: Patient/guardian denies using tobacco. - Ebola Screening: : No symptoms or risks identified at this time. Screenin:10 Abuse screen: Denies threats or abuse. Denies injuries from another. Nutritional ca1 screening: No deficits noted. Tuberculosis screening: No symptoms or risk factors identified. Fall Risk None identified. Assessment: 19:10 General: Appears in no apparent distress. uncomfortable, Behavior is calm, cooperative, ca1 appropriate for age. Pain: Complains of pain in right lower quadrant and left lower quadrant Pain radiates to low back area Quality of pain is described as sharp, Pain began 1 day ago. Is intermittent. Neuro: Level of Consciousness is awake, alert, obeys commands, Oriented to person, place, time, situation. Cardiovascular: Heart tones S1 S2 present Capillary refill < 3 seconds Patient's skin is warm and dry. Respiratory: Airway is patent Respiratory effort is even, unlabored, Respiratory pattern is regular, symmetrical, Breath sounds are clear bilaterally. GI: Abdomen is round non-distended, Bowel sounds present X 4 quads. Abd is soft X 4 quads Abdomen is tender to palpation in right lower quadrant and left lower quadrant Reports nausea. : Reports burning with urination, urgency. EENT: No deficits noted. No signs and/or symptoms were reported regarding the EENT system. Derm: Skin is intact, is healthy with good turgor, Skin is pink, warm \T\ dry. Musculoskeletal: Circulation, motion, and sensation intact. Capillary refill < 3 seconds. 19:40 Reassessment: Patient appears in no apparent distress at this time. Patient and/or ca1 family updated on plan of care and expected duration. Pain level reassessed. Patient is alert, oriented x 3, equal unlabored respirations, skin warm/dry/pink. 20:50 Reassessment: Patient appears in no apparent distress at this time. Patient is alert, ca1 oriented x 3, equal unlabored respirations, skin warm/dry/pink. Patient states feeling better. Vital Signs: 18:55 BP 117 / 72; Pulse 91; Resp 18; Temp 97.7(TE); Pulse Ox 98% on R/A; Weight 82.55 kg; hj Height 5 ft. 1 in. (154.94 cm); Pain 10/10; 19:40 BP 122 / 79; Pulse 79; Resp 18 S; Temp 97.9(O); Pulse Ox 97% on R/A; ca1 20:50 BP 122 / 69; Pulse 81; Resp 17 S; Temp 98.2(O); Pulse Ox 100% on R/A; ca1 18:55 Body Mass Index 34.39 (82.55 kg, 154.94 cm) ED Course: 18:51 Patient arrived in ED. rg4 18:51 Flip Bates DO is Private Physician. rg4 18:55 Triage completed. hj 18:56 Arm band placed on left wrist. hj 18:59 Deniz Bear NP is [facility]. pm1 18:59 Terry Benedict MD is Attending Physician. pm1 19:10 Patient has correct armband on for positive identification. Placed in gown. Bed in low ca1 position. Call light in reach. Side rails up X 1. Pulse ox on. NIBP on. Warm blanket given. 19:10 Urine collected: clean catch specimen, chidi colored, Amount Voided: 20mL. ca1 19:13 Radiology exam delayed due to lab results not completed at this time. (BUN/Creatinine). vm2 19:19 Alejandra Hamm, RN is Primary Nurse. ca1 19:24 Inserted saline lock: 20 gauge in left antecubital area, using aseptic technique. Blood jb5 collected. 19:26 Knee Right 3 View XRAY In Process Unspecified. EDMS 19:41 Radiology exam delayed due to lab results not completed at this time. (BUN/Creatinine). vm2 20:29 CT Abd/Pelvis - W/Contrast: IV contrast only In Process Unspecified. EDMS 21:20 No provider procedures requiring assistance completed. IV discontinued, intact, ca1 bleeding controlled, No redness/swelling at site. Pressure dressing applied. Administered Medications: 19:25 Drug: NS 0.9% 1000 ml Route: IV; Rate: 1000 ml; Site: left antecubital; ca1 20:57 Follow up: Response: No adverse reaction; IV Status: Completed infusion ca1 19:26 Drug: Zofran 4 mg Route: IVP; Site: left antecubital; ca1 20:58 Follow up: Response: No adverse reaction; Nausea is decreased ca1 19:30 Drug: morphine 4 mg Route: IVP; Site: left antecubital; ca1 20:57 Follow up: Response: No adverse reaction; Pain is decreased ca1 21:00 Drug: Rocephin 1 grams Route: IV; Rate: calculated rate; Site: left antecubital; ca1 21:25 Follow up: Response: No adverse reaction; IV Status: Completed infusion ca1 Outcome: 20:55 Discharge ordered by . pm1 21:20 Discharged to home via wheelchair. ca1 21:20 Condition: stable 21:20 Discharge instructions given to patient, Instructed on discharge instructions, follow up and referral plans. medication usage, Demonstrated understanding of instructions, follow-up care, medications, Prescriptions given X 2. 21:31 Patient left the ED. ca1 Signatures: Dispatcher [employer] EDMS Edward Clayton, RN RN hj Deniz Bear, JER[employer] CLIENT SERVICES ASSOCIATE pm1 Sultana Hernandez rg4 Luz Choudhary jb5 Luz Galindo 2 Alejandra Hamm RN RN ca1 Corrections: (The following items were deleted from the chart) 18:57 18:55 Pulse 91bpm; Resp 18bpm; Pulse Ox 98% RA; Temp 97.7F Temporal; 82.55 kg; Height 5 hj ft. 1 in.; BMI: 34.3; Pain 06/29; hj
--- NOTE | 2019-02-02 20:56 | EDPHYS ---
Physician Documentation [facility] Name: Latoya Pfeiffer Age: 63 yrs Sex: Female : 1955 Arrival Date: 02/02/2019 Time: 18:51 Bed 30 Private MD: Flip Bates H ED Physician Terry Benedict HPI: 02/02 20:51 This 63 yrs old Female presents to ER via Ambulatory with complaints of pm1 Abdominal Pain, Knee Pain. 20:51 The patient presents with abdominal pain suprapubic area. Onset: The symptoms/episode pm1 began/occurred 1 week(s) ago, and became worse today. The symptoms do not radiate. Associated signs and symptoms: Pertinent negatives: nausea, vomiting, and diarrhea, chest pain, shortness of breath. The symptoms are described as crampy. Modifying factors: The symptoms are alleviated by nothing, the symptoms are aggravated by nothing. Severity of pain: in the emergency department the pain is actually worse. The patient has not experienced similar symptoms in the past. The patient has not recently seen a physician. Patient also reports right knee pain onset today. Denies any trauma. Worse with bending her knee and weight bearing. Historical: - Allergies: 18:55 No Known Allergies; hj - PMHx: 18:55 Anxiety; Diabetes - NIDDM; insomnia; hj - PSHx: 18:55 ; abdominal tumor removal; Tubal ligation; Cholecystectomy; Hysterectomy; hj hernia operations; - Immunization history:: Adult Immunizations up to date. - Social history:: Smoking status: Patient/guardian denies using tobacco. - Ebola Screening: : No symptoms or risks identified at this time. ROS: 20:51 Constitutional: Negative for fever, chills, and weight loss, Eyes: Negative for injury, pm1 pain, redness, and discharge, ENT: Negative for injury, pain, and discharge, Neck: Negative for injury, pain, and swelling, Cardiovascular: Negative for chest pain, palpitations, and edema, Respiratory: Negative for shortness of breath, cough, wheezing, and pleuritic chest pain. 20:51 Back: Negative for injury and pain, : Negative for injury, bleeding, discharge, and swelling. 20:51 Skin: Negative for injury, rash, and discoloration, Neuro: Negative for headache, weakness, numbness, tingling, and seizure. 20:51 Abdomen/GI: Positive for abdominal pain, of the suprapubic area, Negative for nausea, vomiting, and diarrhea. 20:51 MS/extremity: Positive for pain, of the right knee, Negative for decreased range of motion, deformity. Exam: 20:51 Constitutional: This is a well developed, well nourished patient who is awake, alert, pm1 and in no acute distress. Head/Face: Normocephalic, atraumatic. Eyes: Pupils equal round and reactive to light, extra-ocular motions intact. Lids and lashes normal. Conjunctiva and sclera are non-icteric and not injected. Cornea within normal limits. Periorbital areas with no swelling, redness, or edema. ENT: Nares patent. No nasal discharge, no septal abnormalities noted. Tympanic membranes are normal and external auditory canals are clear. Oropharynx with no redness, swelling, or masses, exudates, or evidence of obstruction, uvula midline. Mucous membranes moist. Neck: Trachea midline, no thyromegaly or masses palpated, and no cervical lymphadenopathy. Supple, full range of motion without nuchal rigidity, or vertebral point tenderness. No Meningismus. Chest/axilla: Normal chest wall appearance and motion. Nontender with no deformity. No lesions are appreciated. Cardiovascular: Regular rate and rhythm with a normal S1 and S2. No gallops, murmurs, or rubs. Normal PMI, no JVD. No pulse deficits. Respiratory: Lungs have equal breath sounds bilaterally, clear to auscultation and percussion. No rales, rhonchi or wheezes noted. No increased work of breathing, no retractions or nasal flaring. 20:51 Back: No spinal tenderness. No costovertebral tenderness. Full range of motion. Skin: Warm, dry with normal turgor. Normal color with no rashes, no lesions, and no evidence of cellulitis. MS/ Extremity: Pulses equal, no cyanosis. Neurovascular intact. Full, normal range of motion. 20:51 Abdomen/GI: Inspection: abdomen appears normal, Bowel sounds: normal, Palpation: soft, in all quadrants, mild abdominal tenderness, in the suprapubic area, mass, is not appreciated, rebound tenderness, is not appreciated. 20:51 Neuro: Orientation: is normal, Motor: is normal, no acute changes, moves all fours, Gait: is steady, at a normal pace, without difficulty. Vital Signs: 18:55 BP 117 / 72; Pulse 91; Resp 18; Temp 97.7(TE); Pulse Ox 98% on R/A; Weight 82.55 kg; hj Height 5 ft. 1 in. (154.94 cm); Pain 10/10; 19:40 BP 122 / 79; Pulse 79; Resp 18 S; Temp 97.9(O); Pulse Ox 97% on R/A; ca1 20:50 BP 122 / 69; Pulse 81; Resp 17 S; Temp 98.2(O); Pulse Ox 100% on R/A; ca1 18:55 Body Mass Index 34.39 (82.55 kg, 154.94 cm) hj MDM: 19:07 Patient medically screened. pm1 20:54 Data reviewed: vital signs. Data interpreted: Pulse oximetry: on room air is 100 %. pm1 Interpretation: normal. Counseling: I had a detailed discussion with the patient and/or guardian regarding: the historical points, exam findings, and any diagnostic results supporting the discharge/admit diagnosis, the need for outpatient follow up, a family practitioner, to return to the emergency department if symptoms worsen or persist or if there are any questions or concerns that arise at home. 02/02 19:11 Order name: Basic Metabolic Panel; Complete Time: 20:35 pm1 02/02 19:11 Order name: CBC with Diff; Complete Time: 20:35 pm1 02/02 19:11 Order name: Creatinine for Radiology; Complete Time: 20:35 pm1 02/02 19:11 Order name: Hepatic Function; Complete Time: 20:35 pm1 02/02 19:11 Order name: Lipase; Complete Time: 20:35 pm1 02/02 19:11 Order name: Urine Microscopic Only; Complete Time: 19:50 pm1 02/02 19:11 Order name: CT Abd/Pelvis - W/Contrast: IV contrast only; Complete Time: 20:48 pm1 02/02 19:11 Order name: Knee Right 3 View XRAY; Complete Time: 19:46 pm1 02/02 19:26 Order name: Urine Dipstick--Ancillary (enter results); Complete Time: 19:39 2 02/02 19:42 Order name: CBC Smear Scan; Complete Time: 20:35 EDAZ 02/02 19:48 Order name: Urine Culture EDAZ 02/02 19:11 Order name: IV Saline Lock; Complete Time: 19:36 pm1 02/02 19:11 Order name: Labs collected and sent; Complete Time: 19:36 pm1 02/02 19:11 Order name: Urine Dipstick-Ancillary (obtain specimen); Complete Time: 19:19 pm1 Administered Medications: 19:25 Drug: NS 0.9% 1000 ml Route: IV; Rate: 1000 ml; Site: left antecubital; ca1 20:57 Follow up: Response: No adverse reaction; IV Status: Completed infusion ca1 19:26 Drug: Zofran 4 mg Route: IVP; Site: left antecubital; ca1 20:58 Follow up: Response: No adverse reaction; Nausea is decreased ca1 19:30 Drug: morphine 4 mg Route: IVP; Site: left antecubital; ca1 20:57 Follow up: Response: No adverse reaction; Pain is decreased ca1 21:00 Drug: Rocephin 1 grams Route: IV; Rate: calculated rate; Site: left antecubital; ca1 21:25 Follow up: Response: No adverse reaction; IV Status: Completed infusion ca1 Disposition: 02/03 11:57 Co-signature as Attending Physician, Terry Benedict MD. Disposition: 02/02/19 20:55 Discharged to Home. Impression: Urinary tract infection, site not specified, Pain in right knee. - Condition is Stable. - Discharge Instructions: Urinary Tract Infection, Adult, Knee Pain. - Prescriptions for Bactrim DS 800- 160 mg Oral Tablet - take 1 tablet by ORAL route every 12 hours for 10 days; 20 tablet. Tylenol- Codeine #3 300-30 mg Oral Tablet - take 2 tablets by ORAL route every 6 hours As needed; 20 tablet. - Medication Reconciliation Form, Thank You Letter, Antibiotic Education, Prescription Opioid Use form. - Follow up: Emergency Department; When: As needed; Reason: Worsening of condition. Follow up: Private Physician; When: 2 - 3 days; Reason: Recheck today's complaints, Continuance of care, Re-evaluation by your physician. - Problem is new. - Symptoms have improved. Signatures: Dispatcher [facility] Clayton RN RN hj Deniz Bear NP CYCLE COUNTER pm1 Terry Benedict MD MD gs Acob, LALI Roberts RN ca1 Corrections: (The following items were deleted from the chart) 02/02 21:31 20:55 02/02/2019 20:55 Discharged to Home. Impression: Urinary tract infection, site ca1 not specified; Pain in right knee. Condition is Stable. Forms are Medication Reconciliation Form, Thank You Letter, Antibiotic Education, Prescription Opioid Use. Follow up: Emergency Department; When: As needed; Reason: Worsening of condition. Follow up: Private Physician; When: 2 - 3 days; Reason: Recheck today's complaints, Continuance of care, Re-evaluation by your physician. Problem is new. Symptoms have improved. pm1
[2019-02-02] MEDS ORDERED: CEFTRIAXONE/SWI 1gm 1 GM/10 ML SYR ONE (21:12)
[2019-02-02 21:48] VITALS: BP 122/69; TEMP 98.2; O2SAT 100
== END 2019-02-02 21:31 | disposition home or self-care (01) ==
LOC: ER 18:49
DX: N39.0 Urinary tract infection, site not specified (principal); M25.561 Pain in right knee
CPT/HCPCS: 36415; 74177; 80048; 80076; 81003; 81015; 83690; 85025; 87077; 87086; 87088; 87186; 96361; 96365; 96375; 99284; J0696; J2405; J7030; Q9967

== ENCOUNTER 2019-06-21 21:51 | Emergency (ER) | payer OTHER ==
[2019-06-21] MEDS ORDERED: ACETAMINOPHEN 500 MG TAB ONE (22:54)
[2019-06-21 23:15] LABS: Absolute Lymphocytes (CBC) 1.4 K/uL (0.7-4.9); Basophils % 0.8 % (0-1.3); Hematocrit 36.2 % (36.0-45.0); Lymphocytes % 14.5 % (15.3-44.8); MPV 11.4 fL (7.6-11.3); RBC Red Blood Cell Count 4.11 M/uL (3.86-4.86)
[2019-06-21 23:17] LABS: Protime INR 1.09
[2019-06-21 23:35] LABS: ALT/SGPT 20 U/L (12-78); AST/SGOT 20 U/L (15-37); Albumin 3.3 g/dL (3.4-5.0); Alkaline Phosphatase 99 U/L (45-117); BUN Blood Urea Nitrogen 13 mg/dL (7-18); Bicarbonate 29 mmol/L (21-32); Bilirubin Direct 0.1 mg/dL (0-0.2); Bilirubin Total 0.3 mg/dL (0.2-1.0); Glucose Level 188 mg/dL (74-106); Magnesium 1.7 mg/dL (1.8-2.4); NT PRO-BNP 91 pg/mL (<125); Potassium 3.4 mmol/L (3.5-5.1); Protein, Total 7.2 g/dL (6.4-8.2); Sodium Level 141 mmol/L (136-145); Troponin (Emerg Dept Use Only) < 0.02 ng/mL (0.0-0.045)
--- NOTE | 2019-06-22 03:14 | ER ---
Nurse's Notes [facility] Name: Latoya Pfeiffer Age: 63 yrs Sex: Female : 1955 Arrival Date: 06/21/2019 Time: 21:55 Bed 28 Private MD: Diagnosis: Chest pain, unspecified Presentation: 06/21 21:57 Presenting complaint: EMS states: Pt is insulin-dependent diabetic, about 30 minutes ca1 ago pt started to c/o chest pain, shortness of breath, dizziness, generalized body weakness, tingling of arms and legs. Pt has experienced these symptoms before associated with low blood sugar, so the family fed her candies and when we got at there at the scene BGL is 212 and most of the symptoms has resolved except for the chest pain. Pt is took 25 units of Novolin 70/30 at 1830 today and did not eat a full meal after. Pt also reports not taking her BGL prior to insulin shots. Transition of care: patient was not received from another setting of care. Onset of symptoms was June 21, 2019 at 21:30. Risk Assessment: Do you want to hurt yourself or someone else? Patient reports no desire to harm self or others. Initial Sepsis Screen: Does the patient meet any 2 criteria? No. Patient's initial sepsis screen is negative. Does the patient have a suspected source of infection? No. Patient's initial sepsis screen is negative. Care prior to arrival: IV initiated. 20 GA, in the right antecubital area, Glucose check: 212. 21:57 Method Of Arrival: EMS: [facility] ca1 21:57 Acuity: LUCINA 3 ca1 Historical: - Allergies: 22:08 No Known Allergies; ca1 - Home Meds: 22:08 Novolin 70/30 [place] Sub-Q 70-30 unit/mL [Active]; ca1 22:13 Oxybutynin Chloride Oral [Active]; Zolpidem Tartrate Oral [Active]; phentermine oral ca1 oral [Active]; fluconazole Oral [Active]; citalopram oral [Active]; - PMHx: 22:08 Anxiety; Diabetes - NIDDM; insomnia; TIA; ca1 - PSHx: 22:08 ; abdominal tumor removal; hernia operations; Tubal ligation; Cholecystectomy; ca1 Hysterectomy; - Immunization history:: Adult Immunizations up to date. - Social history:: Smoking status: Patient/guardian denies using tobacco. - Ebola Screening: : Patient negative for fever greater than or equal to 101.5 degrees Fahrenheit, and additional compatible Ebola Virus Disease symptoms Patient denies exposure to infectious person Patient denies travel to an Ebola-affected area in the 21 days before illness onset No symptoms or risks identified at this time. Screenin:30 Abuse screen: Denies threats or abuse. Nutritional screening: No deficits noted. tr5 Tuberculosis screening: No symptoms or risk factors identified. Fall Risk None identified. Assessment: 22:00 General: Appears in no apparent distress. comfortable, Behavior is calm, cooperative, ca1 appropriate for age. Pain: Complains of pain in mid-sternal area Pain does not radiate. Pain currently is 5 out of 10 on a pain scale. Quality of pain is described as pressure, Pain began 30 min ago. Is continuous. Neuro: Level of Consciousness is awake, alert, obeys commands, Oriented to person, place, time, situation. Neuro: Reports dizziness. Cardiovascular: Heart tones S1 S2 present Capillary refill < 3 seconds Patient's skin is warm and dry. Pulses are all present. Rhythm is sinus rhythm. Respiratory: Reports Airway is patent Respiratory effort is even, unlabored, Respiratory pattern is regular, symmetrical, Breath sounds are clear bilaterally. GI: Abdomen is round non-distended, Bowel sounds present X 4 quads. Abd is soft and non tender X 4 quads. : No deficits noted. No signs and/or symptoms were reported regarding the genitourinary system. EENT: No deficits noted. No signs and/or symptoms were reported regarding the EENT system. Derm: Skin is intact, is healthy with good turgor, Skin is pink, warm \T\ dry. Musculoskeletal: Circulation, motion, and sensation intact. Capillary refill < 3 seconds, Range of motion: intact in all extremities. 23:32 Reassessment: Patient appears in no apparent distress at this time. Patient and/or ca1 family updated on plan of care and expected duration. Pain level reassessed. Patient is alert, oriented x 3, equal unlabored respirations, skin warm/dry/pink. 06/22 01:13 Reassessment: Patient appears in no apparent distress at this time. Patient and/or ao family updated on plan of care and expected duration. Pain level reassessed. 02:13 Reassessment: Patient appears in no apparent distress at this time. Patient and/or ao family updated on plan of care and expected duration. Pain level reassessed. Patient states symptoms have improved. Vital Signs: 06/21 22:13 BP 130 / 68; Pulse 79; Resp 16 S; Temp 98.7(O); Pulse Ox 98% on R/A; Weight 81.65 kg ca1 (R); Height 5 ft. (152.40 cm) (R); Pain 5/10; 23:32 BP 142 / 75; Pulse 67; Resp 17 S; Pulse Ox 100% on R/A; ca1 06/22 00:49 BP 135 / 72; Pulse 62; Resp 18; Pulse Ox 100% on R/A; ao 02:13 BP 121 / 56; Pulse 60; Resp 16; Pulse Ox 100% ; Pain 0/10; ao 06/21 22:13 Body Mass Index 35.15 (81.65 kg, 152.40 cm) ca1 ED Course: 06/21 21:55 Patient arrived in ED. ca1 22:03 Justyna Tuttle FNP-C [facility]. snw 22:03 Andrew Alatorre MD is Attending Physician. snw 22:05 Triage completed. ca1 22:13 Arm band placed on right wrist. ca1 22:28 Ehsan Valdez, RN is Primary Nurse. tr5 22:30 Bed in low position. Call light in reach. Side rails up X 1. tr5 22:30 paper baler on. Pulse ox on. NIBP on. Warm blanket given. ca1 23:00 No provider procedures requiring assistance completed. Maintain EMS IV. Dressing ca1 intact. Good blood return noted. Site clean \T\ dry. Gauge \T\ site: g20 RAC. 23:18 XRAY Chest (1 view) In Process Unspecified. EDMS 06/22 01:12 Report received from Ehsan Valdez RN. ao 03:42 IV discontinued, intact, bleeding controlled, No redness/swelling at site. Pressure ao dressing applied. Administered Medications: 06/21 23:00 Drug: Tylenol 1000 mg Route: PO; ca1 Outcome: 06/22 03:13 Discharge ordered by . snw 03:42 Discharged to home ambulatory. ao 03:42 Condition: stable 03:42 Discharge instructions given to patient, Instructed on discharge instructions, follow up and referral plans. Demonstrated understanding of instructions, follow-up care, medications. 03:42 Patient left the ED. ao Signatures: Dispatcher [employer] Justyna Hammond FNP-C FNP-Jaiden Galvan, RN RN ao Alejandra Hamm RN RN ca1 Ehsan Valdez RN RN tr5 Corrections: (The following items were deleted from the chart) 06/21 22:08 21:57 Presenting complaint: EMS states: Pt is insulin-dependent diabetic, about 30 ca1 minutes ago pt started to c/o chest pain, shortness of breath, dizziness, generalized body weakness, tingling of arms and legs. Pt has experienced these symptoms before associated with low blood sugar, so the family fed her candies and when we got at there at the scene BGL is 212 and most of the symptoms has resolved except for the chest pain. Pt is took 25 units of Novolog 70/30 at 1830 today and did not eat a full meal after. Pt also reports not taking her BGL prior to insulin shots. ca1
--- NOTE | 2019-06-22 03:14 | EDPHYS ---
Physician Documentation [facility] Name: Latoya Pfeiffer Age: 63 yrs Sex: Female : 1955 Arrival Date: 06/21/2019 Time: 21:55 Bed 28 Private MD: ED Physician Andrew Alatorre HPI: 06/22 01:51 This 63 yrs old Female presents to ER via EMS with complaints of chest pain, snw shortness of breath. 01:51 The patient or guardian reports generalized fatigue, palpitations, chest pain and snw shortness of breath that was potentially precipitated by family thought maybe hypoglycemia caused s/s and gave po candy. Onset: The symptoms/episode began/occurred suddenly, just prior to arrival. Associated signs and symptoms:. Current symptoms: In the emergency department the patient's symptoms have resolved, the patient is alert and fully oriented, has normal speech, has normal responsiveness. It is unknown whether or not the patient has had similar symptoms in the past. It is unknown whether or not the patient has recently seen a physician. Pt states she feels much better on initial exam. Historical: - Allergies: 06/21 22:08 No Known Allergies; ca1 - Home Meds: 22:08 Novolin 70/30 [place] Sub-Q 70-30 unit/mL [Active]; ca1 22:13 Oxybutynin Chloride Oral [Active]; Zolpidem Tartrate Oral [Active]; phentermine oral ca1 oral [Active]; fluconazole Oral [Active]; citalopram oral [Active]; - PMHx: 22:08 Anxiety; Diabetes - NIDDM; insomnia; TIA; ca1 - PSHx: 22:08 ; abdominal tumor removal; hernia operations; Tubal ligation; Cholecystectomy; ca1 Hysterectomy; - Immunization history:: Adult Immunizations up to date. - Social history:: Smoking status: Patient/guardian denies using tobacco. - Ebola Screening: : Patient negative for fever greater than or equal to 101.5 degrees Fahrenheit, and additional compatible Ebola Virus Disease symptoms Patient denies exposure to infectious person Patient denies travel to an Ebola-affected area in the 21 days before illness onset No symptoms or risks identified at this time. ROS: 06/22 01:47 Constitutional: Negative for fever, chills, and weight loss, Eyes: Negative for injury, snw pain, redness, and discharge, ENT: Negative for injury, pain, and discharge, Neck: Negative for injury, pain, and swelling, Cardiovascular: Negative for palpitations and edema, + chest pain Respiratory: Negative for cough, wheezing, and pleuritic chest pain, + shortness of breath Back: Negative for injury and pain, : Negative for injury, bleeding, discharge, and swelling, MS/Extremity: Negative for injury and deformity, Skin: Negative for injury, rash, and discoloration, Neuro: Negative for headache, weakness, numbness, tingling, and seizure. Abdomen/GI: Positive for abdominal pain, nausea. Exam: 01:47 Constitutional: This is a well developed, well nourished patient who is awake, alert, snw and in no acute distress. Head/Face: Normocephalic, atraumatic. Eyes: Pupils equal round and reactive to light, extra-ocular motions intact. Lids and lashes normal. Conjunctiva and sclera are non-icteric and not injected. Cornea within normal limits. Periorbital areas with no swelling, redness, or edema. ENT: Nares patent. No nasal discharge, no septal abnormalities noted. Tympanic membranes are normal and external auditory canals are clear. Oropharynx with no redness, swelling, or masses, exudates, or evidence of obstruction, uvula midline. Mucous membranes moist. Neck: Trachea midline, no thyromegaly or masses palpated, and no cervical lymphadenopathy. Supple, full range of motion without nuchal rigidity, or vertebral point tenderness. No Meningismus. Chest/axilla: Normal chest wall appearance and motion. Nontender with no deformity. No lesions are appreciated. Cardiovascular: Regular rate and rhythm with a normal S1 and S2. No gallops, murmurs, or rubs. Normal PMI, no JVD. No pulse deficits. Respiratory: Lungs have equal breath sounds bilaterally, clear to auscultation and percussion. No rales, rhonchi or wheezes noted. No increased work of breathing, no retractions or nasal flaring. Abdomen/GI: Soft, non-tender, with normal bowel sounds. No distension or tympany. No guarding or rebound. No evidence of tenderness throughout. Back: No spinal tenderness. No costovertebral tenderness. Full range of motion. Skin: Warm, dry with normal turgor. Normal color with no rashes, no lesions, and no evidence of cellulitis. MS/ Extremity: Pulses equal, no cyanosis. Neurovascular intact. Full, normal range of motion. Neuro: Awake and alert, GCS 15, oriented to person, place, time, and situation. Cranial nerves II-XII grossly intact. Motor strength 5/5 in all extremities. Sensory grossly intact. Cerebellar exam normal. Normal gait. Psych: Awake, alert, with orientation to person, place and time. Behavior, mood, and affect are within normal limits. Vital Signs: 06/21 22:13 BP 130 / 68; Pulse 79; Resp 16 S; Temp 98.7(O); Pulse Ox 98% on R/A; Weight 81.65 kg ca1 (R); Height 5 ft. (152.40 cm) (R); Pain 5/10; 23:32 BP 142 / 75; Pulse 67; Resp 17 S; Pulse Ox 100% on R/A; ca1 06/22 00:49 BP 135 / 72; Pulse 62; Resp 18; Pulse Ox 100% on R/A; ao 02:13 BP 121 / 56; Pulse 60; Resp 16; Pulse Ox 100% ; Pain 0/10; ao 06/21 22:13 Body Mass Index 35.15 (81.65 kg, 152.40 cm) ca1 MDM: 06/21 22:19 Patient medically screened. snw 06/22 01:53 Data reviewed: vital signs, nurses notes. Data interpreted: Pulse oximetry: on room air snw is 100 %. Interpretation: normal. Counseling: I had a detailed discussion with the patient and/or guardian regarding: the historical points, exam findings, and any diagnostic results supporting the discharge/admit diagnosis, lab results, radiology results. Special discussion: discussed rapid rule procedure and pt states understanding and will await second blood draw. 06/21 22:49 Order name: Basic Metabolic Panel; Complete Time: 23:37 snw 06/21 22:49 Order name: CBC with Diff; Complete Time: 23:23 snw 06/21 22:49 Order name: LFT's; Complete Time: 23:37 snw 06/21 22:49 Order name: Magnesium; Complete Time: 23:37 snw 06/21 22:49 Order name: NT PRO-BNP; Complete Time: 23:37 snw 06/21 22:49 Order name: PT-INR; Complete Time: 23:23 snw 06/21 22:49 Order name: Troponin (emerg Dept Use Only); Complete Time: 23:37 snw 06/21 22:49 Order name: XRAY Chest (1 view) snw 06/21 22:49 Order name: EKG; Complete Time: 22:50 snw 06/21 22:49 Order name: Cardiac monitoring; Complete Time: 22:51 snw 06/21 22:49 Order name: EKG - Nurse/Tech; Complete Time: 22:51 snw 06/21 22:49 Order name: IV Saline Lock; Complete Time: 22:52 snw 06/22 01:49 Order name: Troponin (emerg Dept Use Only); Complete Time: 03:12 ao 06/21 22:49 Order name: Labs collected and sent; Complete Time: 22:52 snw 06/21 22:49 Order name: O2 Per Protocol; Complete Time: 22:52 snw 06/21 22:49 Order name: O2 Sat Monitoring; Complete Time: 22:52 snw 06/21 23:45 Order name: Repeat Cardiac Enzymes at: 0200, EKG at that time as well; Complete Time: snw 02:16 Administered Medications: 06/21 23:00 Drug: Tylenol 1000 mg Route: PO; ca1 Disposition: 06/22 05:14 Co-signature as Attending Physician, Andrew Alatorre MD Available for consultation at ps1 all times . Disposition: 06/22/19 03:13 Discharged to Home. Impression: Chest pain, unspecified. - Condition is Stable. - Discharge Instructions: Nonspecific Chest Pain, Aspirin and Your Heart. - Work release form, Medication Reconciliation Form, Thank You Letter, Antibiotic Education, Prescription Opioid Use form. - Follow up: Private Physician; When: 1 - 2 days; Reason: Recheck today's complaints, Continuance of care, Re-evaluation by your physician. Follow up: Emergency Department; When: As needed; Reason: Worsening of condition. Signatures: Dispatcher [employer] EDMS Justyna Tuttle FNP-C [employer]SULTANT-Jaiden Galvan, RN Andrew Hu MD MD ps1 Alejandra Hamm RN RN ca1 Corrections: (The following items were deleted from the chart) 01:51 01:47 Constitutional: Negative for fever, chills, and weight loss, Eyes: Negative for snw injury, pain, redness, and discharge, ENT: Negative for injury, pain, and discharge, Neck: Negative for injury, pain, and swelling, Cardiovascular: Negative for palpitations and edema, + chest pain Respiratory: Negative for shortness of breath, cough, wheezing, and pleuritic chest pain, Back: Negative for injury and pain, : Negative for injury, bleeding, discharge, and swelling, MS/Extremity: Negative for injury and deformity, Skin: Negative for injury, rash, and discoloration, Neuro: Negative for headache, weakness, numbness, tingling, and seizure, snw 03:42 03:13 06/22/2019 03:13 Discharged to Home. Impression: Chest pain, unspecified. ao Condition is Stable. Forms are Medication Reconciliation Form, Thank You Letter, Antibiotic Education, Prescription Opioid Use. Follow up: Private Physician; When: 1 - 2 days; Reason: Recheck today's complaints, Continuance of care, Re-evaluation by your physician. Follow up: Emergency Department; When: As needed; Reason: Worsening of condition. snw
[2019-06-22 03:49] VITALS: TEMP 98.7
[2019-06-22 03:50] VITALS: O2SAT 100
[2019-06-22 03:52] VITALS: BP 121/56
--- NOTE | 2019-06-22 06:33 | EKG ---
Test Date: 2019-06-21 Test Time: 22:35:07 Fire Captain Marine: DEMETRIA MEASUREMENT RESULTS: Intervals: Rate: 68 MA: 166 QRSD: 92 QT: 428 QTc: 455 [place]: P: 41 MA: 166 QRS: 1 T: 47 INTERPRETIVE STATEMENTS: Normal sinus rhythm Incomplete right bundle branch block Abnormal ECG Compared to ECG 08/01/2018 12:25:18 Incomplete right bundle-branch block now present Electronically Signed On 06-22-19 06:32:15 CDT by Efra Moore
--- NOTE | 2019-06-22 08:23 | RAD REPORT ---
EXAM DESCRIPTION: RAD - Chest Single View - 06/21/2019 11:18 pm CLINICAL HISTORY: CHEST PAIN Chest pain. COMPARISON: Chest Pa And Lat (2 Views) dated 09/29/2018; Chest Single View dated 08/01/2018; Chest Si ngle View dated 07/27/2018; CHEST PA AND LAT 2 VIEW dated 06/15/2015 FINDINGS: Portable technique limits examination quality. The lungs are grossly clear. The heart is upper limit normal in size with a mildly tortuous thoracic aorta. No displaced fractures. IMPRESSION: No acute intrathoracic process suspected.
--- NOTE | 2019-06-22 08:57 | EKG ---
Test Date: 2019-06-22 Test Time: 01:56:46 [employer] Coordinator: JASWANT MEASUREMENT RESULTS: Intervals: Rate: 57 MI: 148 QRSD: 90 QT: 454 QTc: 441 [place]: P: 5 MI: 148 QRS: 0 T: 39 INTERPRETIVE STATEMENTS: Sinus bradycardia Otherwise normal ECG Compared to ECG 06/21/2019 22:35:07 Sinus rhythm no longer present Incomplete right bundle-branch block no longer present Electronically Signed On 06-22-19 08:56:54 CDT by Efra Moore
== END 2019-06-22 03:42 | disposition home or self-care (01) ==
LOC: ER 21:51
DX: R07.9 Chest pain, unspecified (principal); E11.9 Type 2 diabetes mellitus without complications; F41.9 Anxiety disorder, unspecified; Z79.4 Long term (current) use of insulin
CPT/HCPCS: 36415; 71045; 80048; 80076; 83735; 83880; 84484; 85025; 85610; 93005; 99284

== ENCOUNTER 2019-08-02 09:58 | Emergency (ER) | payer OTHER ==
--- OUTSIDE RECORDS SUMMARY | 2019-08-02 10:00 | XMS REPORT ---
:1955 [facility] Address [address] [place] [address] Care Team Providers Name Role Phone Unavailable Unavailable Unavailable Problems This patient has no known problems. Allergies, Adverse Reactions, Alerts This patient has no known allergies or adverse reactions. Medications This patient has no known medications. Encounters Start End Encounter Admission Attending Care Care Encounter Date/Time Date/Time Type Type Clinicians Facility Department ID 2019-02-14 2019-02-14 Outpatient [id number] 08:54:00 08:54:00
[2019-08-02] MEDS ORDERED: ONDANSETRON 4 MG/2 ML VIAL ONE ×2 (10:21→12:00)
[2019-08-02] MEDS ORDERED: FENTANYL CITR 100 MCG/2 ML ONE (10:21)
[2019-08-02] MEDS ORDERED: NA CHLORIDE 0.9% 1,000 ML ONE (10:21)
[2019-08-02 10:38] LABS: Absolute Lymphocytes (CBC) 1.2 K/uL (0.7-4.9); Basophils % 0.9 % (0-1.3); Hematocrit 38.7 % (36.0-45.0); MPV 11.3 fL (7.6-11.3); RBC Red Blood Cell Count 4.34 M/uL (3.86-4.86)
--- NOTE | 2019-08-02 10:40 | EKG ---
Test Date: 2019-08-02 Test Time: 10:05:18 Logging Crew Supervisor: EVANS MEASUREMENT RESULTS: Intervals: Rate: 60 CT: 158 QRSD: 88 QT: 450 QTc: 450 [place]: P: 20 CT: 158 QRS: 0 T: 47 INTERPRETIVE STATEMENTS: Normal sinus rhythm Low voltage QRS Otherwise normal ECG Compared to ECG 06/22/2019 01:56:46 Low QRS voltage now present Sinus bradycardia no longer present Electronically Signed On 08-02-19 10:39:36 PATIENT ACCOUNTS CLERK by Efra Moore
[2019-08-02 11:10] LABS: ALT/SGPT 25 U/L (12-78); AST/SGOT 19 U/L (15-37); Albumin 2.9 g/dL (3.4-5.0); Alkaline Phosphatase 106 U/L (45-117); BUN Blood Urea Nitrogen 15 mg/dL (7-18); Bicarbonate 26 mmol/L (21-32); Bilirubin Direct 0.2 mg/dL (0-0.2); Bilirubin Total 0.4 mg/dL (0.2-1.0); Glucose Level 377 mg/dL (74-106); Lipase 88 U/L (73-393); Potassium 4.5 mmol/L (3.5-5.1); Protein, Total 6.7 g/dL (6.4-8.2); Sodium Level 139 mmol/L (136-145); Troponin (Emerg Dept Use Only) < 0.02 ng/mL (0.0-0.045)
--- NOTE | 2019-08-02 11:46 | RAD REPORT ---
EXAM DESCRIPTION: CT - Abdomen Pelvis W Contrast - 08/02/2019 11:31 am CLINICAL HISTORY: epigastric pain, vomiting COMPARISON: CT imaging January 2019, CT imaging May 2016 TECHNIQUE: Biphasic, helical CT imaging of the abdomen and pelvis was performed following 100 ml non -ionic IV contrast. No oral contrast. All CT scans are performed using dose optimization technique as appropriate and may include automated exposure control or mA/KV adjustment according to patient size. FINDINGS: No suspicious findings in the lung bases. No focal liver lesion. Liver does have a nodular contour suggesting cirrhosis or underlying hepatic p arenchymal disease. Spleen and pancreas show no acute findings. Gallbladder is absent. No biliary alexis e dilatation. Symmetric renal function is seen with no hydronephrosis or suspicious renal mass. No pyelonephritis o r acute parenchymal process. No bladder abnormalities. Small right adrenal mass is unchanged from 201 6. No gastric wall thickening or edema. No duodenal abnormality. No CT findings for gastric or duodenal ulceration. Small bowel and colon show no acute findings. Appendix is not clearly defined. No active GI process seen. No free air, free fluid or inflammatory stranding. No hernia, mass or bulky lymphadenopathy. Air and stranding in the subcutaneous fatty tissues are related to medication injection. Hernia between the atrophic rectus muscle and oblique musculature on the right contains no bowel. No stranding or edema. The hernia is unchanged from 2016. No suspicious bony findings. No acute vascular finding. IMPRESSION: Contrast enhanced CT abdomen and pelvis imaging shows no acute finding. No abnormality s een to explain acute onset epigastric pain. Nonacute findings are detailed in the body of the report. These findings are not clearly different fr om January 2019.
[2019-08-02] MEDS ORDERED: LIDOCAINE VISCOUS 2% SOLN 15 ML UDC ONE (12:00)
[2019-08-02] MEDS ORDERED: MAGNE/ALUM HYDROXD 30 ML UCUP ONE (12:00)
[2019-08-02] MEDS ORDERED: PROMETHAZINE 25 MG/ML VIAL ONE (12:07)
--- NOTE | 2019-08-02 13:03 | ER ---
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 Transition of care: patient was not received from another setting of care. Onset of symptoms was August 02, 2019. Risk Assessment: Do you want to hurt yourself or someone else? Patient reports no desire to harm self or others. Initial Sepsis Screen: Does the patient meet any 2 criteria? No. Patient's initial sepsis screen is negative. Does the patient have a suspected source of infection? No. Patient's initial sepsis screen is negative. Care prior to arrival: IV initiated. 18 GA, in the right forearm, Glucose check: 401. 10:00 Method Of Arrival: EMS: [facility] ph 10:00 Acuity: LUCINA 3 ph Triage Assessment: 10:06 General: Appears in no apparent distress. uncomfortable, well groomed, Behavior is ph calm, cooperative, appropriate for age. Pain: Complains of pain in epigastric area Pain does not radiate. Pain currently is 9 out of 10 on a pain scale. Quality of pain is described as sharp, stabbing, Pain began suddenly, 30 min ago. Neuro: Level of Consciousness is awake, alert, obeys commands, Oriented to person, place, time, situation. Cardiovascular: Reports lightheadedness, nausea, syncope, Capillary refill < 3 seconds in bilateral fingers Patient's skin is warm and dry. Respiratory: Airway is patent Respiratory effort is even, unlabored, Respiratory pattern is regular, symmetrical. GI: Abdomen is round non-distended, Reports upper abdominal pain, epigastric pain, nausea, Patient currently denies diarrhea, vomiting. Derm: Skin is intact, is healthy with good turgor, Skin is pink, warm \\T\\ dry. Musculoskeletal: Circulation, motion, and sensation intact. Range of motion: intact in all extremities. Historical: - Allergies: 10:06 No Known Allergies; ph - Home Meds: 10:06 citalopram oral [Active]; Novolin 70/30 [place] Sub-Q 70-30 unit/mL [Active]; Zolpidem ph Tartrate Oral [Active]; Oxybutynin Chloride Oral [Active]; phentermine Oral [Active]; Metformin Oral [Active]; gabapentin oral oral [Active]; - PMHx: 10:06 Anxiety; insomnia; TIA; Diabetes - IDDM; ph - PSHx: 10:06 ; abdominal tumor removal; hernia operations; Tubal ligation; Cholecystectomy; ph Hysterectomy; - Immunization history:: Adult Immunizations unknown. - Social history:: Smoking status: Patient/guardian denies using tobacco. - Ebola Screening: : No symptoms or risks identified at this time. - Family history:: not pertinent. - Hospitalizations: : No recent hospitalization is reported. Screenin:08 Abuse screen: Denies threats or abuse. Denies injuries from another. Nutritional ph screening: No deficits noted. Tuberculosis screening: No symptoms or risk factors identified. Fall Risk None identified. Assessment: 10:09 General: No change from previously documented triage assessment. ph 10:35 Reassessment: Patient appears in no apparent distress at this time. Patient and/or ph family updated on plan of care and expected duration. Pain level reassessed. Patient is alert, oriented x 3, equal unlabored respirations, skin warm/dry/pink. Pt report that pain and nausea have improved after medications, see MAR, awaiting lab results and CT scan. 11:30 Reassessment: Patient appears in no apparent distress at this time. Patient and/or ph family updated on plan of care and expected duration. Pain level reassessed. Patient is alert, oriented x 3, equal unlabored respirations, skin warm/dry/pink. 12:15 Reassessment: Patient appears in no apparent distress at this time. Patient and/or ph family updated on plan of care and expected duration. Pain level reassessed. Patient is alert, oriented x 3, equal unlabored respirations, skin warm/dry/pink. Pt reports that nausea has returned and epigastric pain has increased to 7/10, ERP notified, see MAR. 13:30 Reassessment: Patient appears in no apparent distress at this time. Patient and/or ph family updated on plan of care and expected duration. Pain level reassessed. Patient is alert, oriented x 3, equal unlabored respirations, skin warm/dry/pink. Pt d/c home w/ family, instructed to follow up w/ GI. Vital Signs: 10:03 BP 104 / 67; Pulse 62; Resp 18; Temp 97.4; Pulse Ox 99% on R/A; Weight 81.65 kg; Height ph 5 ft. 1 in. (154.94 cm); Pain 9/10; 10:35 BP 107 / 63; Pulse 61; Resp 18; Pulse Ox 97% on R/A; Pain 5/10; ph 11:05 BP 126 / 75; Pulse 60; Resp 15; Pulse Ox 99% on R/A; ph 12:21 BP 122 / 58; Pulse 62; Resp 18; Pulse Ox 99% on R/A; ph 13:30 BP 120 / 62; Pulse 61; Resp 18; Temp 97.6; Pulse Ox 99% on R/A; ph 10:03 Body Mass Index 34.01 (81.65 kg, 154.94 cm) ph ED Course: 09:59 Patient arrived in ED. ph 10:02 Triage completed. ph 10:02 Stalin Hernandez MD is Attending Physician. rn 10:05 EKG done, by quality control tech raw materials. reviewed by Stalin Hernandez MD. sv 10:08 Arm band placed on Patient placed in an exam room, on a stretcher, on cardiac nurse specialist, ph on pulse oximetry. 10:08 Patient has correct armband on for positive identification. Placed in gown. Bed in low ph position. Call light in reach. Side rails up X 1. cardiac monitor on. Pulse ox on. NIBP on. Door closed. Noise minimized. Warm blanket given. Head of bed elevated. 10:09 My Kam, LALI is Primary Nurse. ph 10:15 Maintain EMS IV. Dressing intact. Good blood return noted. Site clean \\T\\ dry. Gauge \\T\\ ph site: 18 RAC. 11:[address] via stretcher. sv 11:32 CT Abd/Pelvis - IV Contrast Only In Process Unspecified. EDMS 13:02 Waldron, Higinio, MD is Referral Physician. rn 13:30 No provider procedures requiring assistance completed. IV discontinued, intact, ph bleeding controlled, No redness/swelling at site. Pressure dressing applied. Administered Medications: 10:35 Drug: Zofran 4 mg Route: IVP; Site: right antecubital; ph 10:53 Follow up: Response: No adverse reaction; Nausea is decreased ph 10:35 Drug: NS 0.9% 1000 ml Route: IV; Rate: 1000 ml; Site: right antecubital; ph 12:30 Follow up: Response: No adverse reaction; IV Status: Completed infusion; IV Intake: ph 1000ml 10:35 Drug: fentaNYL (PF) 25 mcg Route: IVP; Site: right antecubital; ph 10:53 Follow up: Response: No adverse reaction; Pain is decreased ph 10:53 Follow up: Response: No adverse reaction; Pain is decreased; RASS: Alert and Calm (0) ph 12:17 Drug: Phenergan 12.5 mg Route: IVP; Site: left forearm; ph 13:00 Follow up: Response: No adverse reaction; Nausea is decreased ph 12:20 Not Given (Other Intervention Used): Zofran 4 mg IVP once; over 2 minutes ph 12:21 Drug: GI Cocktail without - (Maalox Suspension 30 ml, Lidocaine Liquid 2 % 15 ph ml) Route: PO; 13:00 Follow up: Response: No adverse reaction ph Intake: 12:30 IV: 1000ml; Total: 1000ml. ph Outcome: 13:02 Discharge ordered by MD. rn 13:31 Patient left the ED. iw 13:31 Discharged to home via wheelchair, with family. ph 13:31 Condition: good 13:31 Discharge instructions given to patient, Instructed on discharge instructions, follow up and referral plans. medication usage, Demonstrated understanding of instructions, follow-up care, medications, Prescriptions given X 2. Signatures: Dispatcher [employer] [facility] Christen Salas RN RN sv Williams, Irene, RN RN iw Nieto, Roman, MD MD rn Hall, Patricia, RN RN ph Corrections: (The following items were deleted from the chart) 16:09 10:53 Response: No adverse reaction; Pain is decreased ph ph 16:09 16:09 Response: No adverse reaction; Pain is decreased; RASS: Alert and Calm (0) ph ph 16:10 16:09 Response: No adverse reaction; IV Status: Completed infusion; IV Intake: 1000ml phph
--- NOTE | 2019-08-02 13:03 | EDPHYS ---
Physician Documentation [facility] Name: Latoya Pfeiffer Age: 63 yrs Sex: Female : 1955 Arrival Date: 08/02/2019 Time: 09:59 Bed 8 Private MD: ED Physician Stalin Hernandez HPI: 08/02 10:09 This 63 yrs old Female presents to ER via EMS with complaints of Abdominal rn Pain, Syncope. 10:09 This 63 yrs old Female presents to ER via EMS with complaints of Abdominal rn Pain, Possible Syncope. 10:10 The patient presents with abdominal pain in the epigastric area. Onset: The rn symptoms/episode began/occurred just prior to arrival. The symptoms do not radiate. Associated signs and symptoms: Pertinent positives: nausea and vomiting, diarrhea, Pertinent negatives: blood in stools, fever, hematuria, shortness of breath, vaginal discharge, vomiting blood. The symptoms are described as sharp. Modifying factors: The symptoms are alleviated by nothing, the symptoms are aggravated by touching the area. Severity of pain: At its worst the pain was moderate in the emergency department the pain has improved. The patient has not experienced similar symptoms in the past. 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 Denies chest pain/sob. No blood in stool. . Historical: - Allergies: 10:06 No Known Allergies; ph - Home Meds: 10:06 citalopram oral [Active]; Novolin 70/30 [place] Sub-Q 70-30 unit/mL [Active]; Zolpidem ph Tartrate Oral [Active]; Oxybutynin Chloride Oral [Active]; phentermine Oral [Active]; Metformin Oral [Active]; gabapentin oral oral [Active]; - PMHx: 10:06 Anxiety; insomnia; TIA; Diabetes - IDDM; ph - PSHx: 10:06 ; abdominal tumor removal; hernia operations; Tubal ligation; Cholecystectomy; ph Hysterectomy; - Immunization history:: Adult Immunizations unknown. - Social history:: Smoking status: Patient/guardian denies using tobacco. - Ebola Screening: : No symptoms or risks identified at this time. - Family history:: not pertinent. - Hospitalizations: : No recent hospitalization is reported. ROS: 10:10 Constitutional: Negative for fever, chills, and weight loss, Eyes: Negative for injury, rn pain, redness, and discharge, Neck: Negative for injury, pain, and swelling, Cardiovascular: Negative for chest pain, palpitations, and edema, Respiratory: Negative for shortness of breath, cough, wheezing, and pleuritic chest pain, Abdomen/GI: + epigastric abd pain and vomiting MS/Extremity: Negative for injury and deformity, Skin: Negative for injury, rash, and discoloration, Neuro: Negative for headache, weakness, numbness, tingling, and seizure. Exam: 10:10 Constitutional: This is a well developed, well nourished patient who is awake, alert, rn and in no acute distress. Head/Face: Normocephalic, atraumatic. ENT: MMM Cardiovascular: Regular rate and rhythm. No pulse deficits. Respiratory: No increased work of breathing, no retractions or nasal flaring. Abdomen/GI: soft, + epigastric and LUQ tenderness, no rebound MS/ Extremity: Pulses equal, no cyanosis. Neurovascular intact. Full, normal range of motion. Equal circumference. Neuro: Awake and alert, GCS 15, oriented to person, place, time, and situation. Cranial nerves II-XII grossly intact. Motor strength 5/5 in all extremities. Sensory grossly intact. Vital Signs: 10:03 BP 104 / 67; Pulse 62; Resp 18; Temp 97.4; Pulse Ox 99% on R/A; Weight 81.65 kg; Height ph 5 ft. 1 in. (154.94 cm); Pain 9/10; 10:35 BP 107 / 63; Pulse 61; Resp 18; Pulse Ox 97% on R/A; Pain 5/10; ph 11:05 BP 126 / 75; Pulse 60; Resp 15; Pulse Ox 99% on R/A; ph 12:21 BP 122 / 58; Pulse 62; Resp 18; Pulse Ox 99% on R/A; ph 13:30 BP 120 / 62; Pulse 61; Resp 18; Temp 97.6; Pulse Ox 99% on R/A; ph 10:03 Body Mass Index 34.01 (81.65 kg, 154.94 cm) ph MDM: 10:02 Patient medically screened. rn 13:00 Differential diagnosis: bowel obstruction, diverticulitis, gastritis, gastroesophageal rn reflux disease, non-specific abd pain, pancreatitis, Peptic Ulcer Disease, Ureterolithiasis, urinary tract infection. Differential diagnosis: enteritis, viral syndrome, gastritis. Data reviewed: vital signs, nurses notes. Counseling: I had a detailed discussion with the patient and/or guardian regarding: the historical points, exam findings, and any diagnostic results supporting the discharge/admit diagnosis, lab results, radiology results, the need for outpatient follow up, to return to the emergency department if symptoms worsen or persist or if there are any questions or concerns that arise at home. Response to treatment: the patient's symptoms have markedly improved after treatment, and as a result, I will discharge patient. Special discussion: Based on the patient's Hx, exam, and Dx evaluation, there is no indication for emergent surgery or inpatient Tx. It is understood by the patient/guardian that if the Sx's persist or worsen they need to return immediately for re-evaluation. I discussed with the patient/guardian in detail that at this point there is no indication for admission to the hospital. It is understood, however, that if the symptoms persist or worsen the patient needs to return immediately for re-evaluation. ED course: No acute findings on CT abdomen or labs, improved symptoms, ambulatory, normal vitals, feels better, will dc home with pain meds and prn nausea meds. Return precautions given as could be gastritis vs enteritis and could get worse before better. . 08/02 10:09 Order name: Basic Metabolic Panel; Complete Time: : rn 08/02 10:09 Order name: CBC with Diff; Complete Time: : rn 08/02 10:09 Order name: Creatinine for Radiology; Complete Time: 11: rn 08/02 10:09 Order name: Hepatic Function; Complete Time: : rn 08/02 10:09 Order name: Lipase; Complete Time: : rn 08/02 10:09 Order name: Troponin (emerg Dept Use Only); Complete Time: : rn 08/02 10:09 Order name: CT Abd/Pelvis - IV Contrast Only; Complete Time: 11: rn 08/02 10:09 Order name: EKG; Complete Time: 10:11 rn 08/02 10:09 Order name: IV Saline Lock; Complete Time: 10:10 rn 08/02 10:09 Order name: Labs collected and sent; Complete Time: 10:34 rn 08/02 10: Order name: EKG - Nurse/Tech; Complete Time: 10:23 rn Administered Medications: 10:35 Drug: Zofran 4 mg Route: IVP; Site: right antecubital; ph 10:53 Follow up: Response: No adverse reaction; Nausea is decreased ph 10:35 Drug: NS 0.9% 1000 ml Route: IV; Rate: 1000 ml; Site: right antecubital; ph 12:30 Follow up: Response: No adverse reaction; IV Status: Completed infusion; IV Intake: ph 1000ml 10:35 Drug: fentaNYL (PF) 25 mcg Route: IVP; Site: right antecubital; ph 10:53 Follow up: Response: No adverse reaction; Pain is decreased ph 10:53 Follow up: Response: No adverse reaction; Pain is decreased; RASS: Alert and Calm (0) ph 12:17 Drug: Phenergan 12.5 mg Route: IVP; Site: left forearm; ph 13:00 Follow up: Response: No adverse reaction; Nausea is decreased ph 12:20 Not Given (Other Intervention Used): Zofran 4 mg IVP once; over 2 minutes ph 12:21 Drug: GI Cocktail without - (Maalox Suspension 30 ml, Lidocaine Liquid 2 % 15 ph ml) Route: PO; 13:00 Follow up: Response: No adverse reaction ph Disposition: 08/02/19 13:02 Discharged to Home. Impression: Vomiting, Upper abdominal pain, unspecified. - Condition is Stable. - Discharge Instructions: Abdominal Pain, Adult, Nausea and Vomiting, Adult. - Prescriptions for Zofran ODT 4 mg Oral tablet,disintegrating - place 1 tablet by TRANSLINGUAL route every 8 hours As needed; 20 tablet. Tramadol 50 mg Oral Tablet - take 1 tablet by ORAL route every 8 hours as needed; 15 tablet. - Medication Reconciliation Form, Thank You Letter, Antibiotic Education, Prescription Opioid Use, Work release form, Family Work Release form. - Follow up: Higinio Waldron MD; When: As needed; Reason: Recheck today's complaints, Re-evaluation by your physician. - Problem is new. - Symptoms have improved. Signatures: Dispatcher [employer] Di Long RN RN iw Stalin Hernandez MD MD rn Hall, Patricia, RN RN ph Corrections: (The following items were deleted from the chart) 13:31 13:02 08/02/2019 13:02 Discharged to Home. Impression: Vomiting; Upper abdominal pain, iw unspecified. Condition is Stable. Forms are Medication Reconciliation Form, Thank You Letter, Antibiotic Education, Prescription Opioid Use. Follow up: Higinio Waldron; When: As needed; Reason: Recheck today's complaints, Re-evaluation by your physician. Problem is new. Symptoms have improved. rn
[2019-08-02 14:09] VITALS: TEMP 97.4
[2019-08-02 14:11] VITALS: O2SAT 99
[2019-08-02 14:16] VITALS: BP 122/58
== END 2019-08-02 13:31 | disposition home or self-care (01) ==
LOC: ER 09:58
DX: R11.2 Nausea with vomiting, unspecified (principal); E11.9 Type 2 diabetes mellitus without complications; F41.9 Anxiety disorder, unspecified; Z79.4 Long term (current) use of insulin
CPT/HCPCS: 93005; 85025; 80048; 36415; 80076; 84484; 83690; 74177; Q9967; J2550; J3010; J7030; J2405; 99285

== ENCOUNTER 2019-09-25 10:37 | Emergency (ER) | payer OTHER ==
--- OUTSIDE RECORDS SUMMARY | 2019-09-25 10:42 | XMS REPORT ---
:1955 [facility] Address [address] [place] [address] Care Team Providers Name Role Phone Unavailable [...]
[2019-09-25] MEDS ORDERED: ALBUTEROL 2.5 MG/3 ML NEB SOL ONE (11:26)
[2019-09-25] MEDS ORDERED: CEFTRIAXONE/SWI 1gm 1 GM/10 ML SYR ONE (11:26)
[2019-09-25] MEDS ORDERED: IPRATROPIUM BROM 0.5MG/2.5ML ONE (11:26)
[2019-09-25] MEDS ORDERED: METHYLPREDNISOLONE 125 MG INJ ONE (11:26)
[2019-09-25 11:28] LABS: Absolute Lymphocytes (CBC) 1.7 K/uL (0.7-4.9); Basophils % 1.4 % (0-1.3); Hematocrit 41.7 % (36.0-45.0); Lymphocytes % 33.8 % (15.3-44.8); RBC Red Blood Cell Count 4.78 M/uL (3.86-4.86)
[2019-09-25] MEDS ORDERED: AZITHROMYCIN IV 500 MG in NA CHLORIDE 0.9% 250 ML IVPB ONE (11:30)
[2019-09-25 11:32] LABS: Protime INR 0.97
[2019-09-25 11:45] LABS: ALT/SGPT 41 U/L (12-78); AST/SGOT 31 U/L (15-37); Albumin 3.4 g/dL (3.4-5.0); Alkaline Phosphatase 116 U/L (45-117); BUN Blood Urea Nitrogen 7 mg/dL (7-18); Bicarbonate 28 mmol/L (21-32); Bilirubin Direct 0.2 mg/dL (0-0.2); Bilirubin Total 0.6 mg/dL (0.2-1.0); Glucose Level 324 mg/dL (74-106); Magnesium 1.6 mg/dL (1.8-2.4); NT PRO-BNP 91 pg/mL (<125); Potassium 3.8 mmol/L (3.5-5.1); Protein, Total 7.4 g/dL (6.4-8.2); Sodium Level 139 mmol/L (136-145); Troponin (Emerg Dept Use Only) < 0.02 ng/mL (0.0-0.045)
--- NOTE | 2019-09-25 12:07 | EKG ---
Test Date: 2019-09-25 Test Time: 11:35:[address] Worker: EVANS MEASUREMENT RESULTS: Intervals: Rate: 68 MO: 154 QRSD: 80 QT: 410 QTc: 435 [place]: P: 15 MO: 154 QRS: -16 T: 39 INTERPRETIVE STATEMENTS: Normal sinus rhythm Cannot rule out Anterior infarct, age undetermined Abnormal ECG Compared to ECG 08/02/2019 10:05:18 Myocardial infarct finding now present Electronically Signed On 09-25-19 12:07:07 OUTSOLE CEMENTER by Efra Moore
[2019-09-25] MEDS ORDERED: OSELTAMIVIR 75 MG CAP ONE (12:55)
[2019-09-25] MEDS ORDERED: KETOROLAC 30 MG/ML INJ ONE (12:55)
[2019-09-25] MEDS ORDERED: HYDROCODONE/CHLORPHEN 5 ML/OSYR ONE (12:55)
[2019-09-25] MEDS ORDERED: MAGNESIUM SULFATE 1 gm IVPB 1 GM/100 ML BAG IV ONE (12:56)
[2019-09-25] MEDS ORDERED: INSULIN -REGULAR HUMAN 50 UNIT/0.5 ML ML ONE (12:56)
--- NOTE | 2019-09-25 13:24 | RAD REPORT ---
EXAM DESCRIPTION: RAD - Chest Pa And Lat (2 Views) - 09/25/2019 1:15 pm CLINICAL HISTORY: Dyspnea;Cough Chest pain. COMPARISON: Chest Single View dated 06/21/2019; Chest Pa And Lat (2 Views) dated 09/29/2018; Chest Sin gle View dated 08/01/2018; Chest Single View dated 07/27/2018 FINDINGS: Mild ill-defined opacities are present in the left lower lobe probably representing early infiltrate/ pneumonia. The heart is upper limit of normal in size. No displaced fractures.
--- NOTE | 2019-09-25 13:45 | ER ---
Nurse's Notes [facility] Name: Latoya Pfeiffer Age: 63 yrs Sex: Female : 1955 Arrival Date: 09/25/2019 Time: 10:39 Bed 24 Private MD: Flip Bates H Diagnosis: Chest pain, unspecified;Influenza due to other identified influenza virus-Flu B;Type 1 diabetes mellitus;Hypomagnesemia;Pneumonia due to other specified bacteria Presentation: 09/25 10:45 Presenting complaint: Patient states: i am having cough and congestion and pain in my tw2 chest when i take a deep breath since Wednesday, it started getting worse last night, i feel a rattling in my chest and i have a headache and i am nauseous. Transition of care: patient was not received from another setting of care. Onset of symptoms was September 25, 2019. Risk Assessment: Do you want to hurt yourself or someone else? Patient reports no desire to harm self or others. Initial Sepsis Screen: Does the patient meet any 2 criteria? HR > 90 bpm. No. Patient's initial sepsis screen is negative. Does the patient have a suspected source of infection? No. Patient's initial sepsis screen is negative. Care prior to arrival: None. 10:45 Method Of Arrival: Ambulatory tw2 10:45 Acuity: LUCINA 3 tw2 Triage Assessment: 10:48 General: Appears in no apparent distress. Behavior is calm, cooperative, appropriate tw2 for age. Pain: Complains of pain in chest. EENT: Reports nasal congestion nasal discharge. Cardiovascular:. Respiratory: Reports cough that is. Historical: - Allergies: 10:48 No Known Drug Allergies; tw2 - Home Meds: 10:48 citalopram oral [Active]; Novolin 70/30 [place] Sub-Q 70-30 unit/mL [Active]; tw2 fluconazole Oral [Active]; Metformin Oral [Active]; Zolpidem Tartrate Oral [Active]; phentermine Oral [Active]; Oxybutynin Chloride Oral [Active]; gabapentin Oral [Active]; - PMHx: 10:48 Diabetes - IDDM; insomnia; TIA; Anxiety; tw2 - PSHx: 10:48 ; abdominal tumor removal; hernia operations; Tubal ligation; Cholecystectomy; tw2 Hysterectomy; - Immunization history:: Adult Immunizations. - Social history:: Smoking status: . - Ebola Screening: : Patient denies travel to an Ebola-affected area in the 21 days before illness onset. - Family history:: not pertinent. Screenin:00 Abuse screen: Denies threats or abuse. Denies injuries from another. Nutritional aj1 screening: No deficits noted. Tuberculosis screening: No symptoms or risk factors identified. 14:50 Fall Risk None identified. rv Assessment: 11:00 General: Appears in no apparent distress. uncomfortable, Behavior is calm, cooperative, aj1 appropriate for age. Pain: Complains of pain in chest Pain does not radiate. Pain currently is 5 out of 10 on a pain scale. Pain: Pain began suddenly. Neuro: Level of Consciousness is awake, alert, obeys commands, Oriented to person, place, time, situation. Cardiovascular: Reports chest pain, Heart tones S1 S2 present Patient's skin is warm and dry. Rhythm is junctional rhythm. Respiratory: Reports cough that is hacking, persistent Airway is patent Respiratory effort is even, unlabored, Respiratory pattern is regular, symmetrical, Breath sounds are coarse bilaterally. GI: No signs and/or symptoms were reported involving the gastrointestinal system. : No signs and/or symptoms were reported regarding the genitourinary system. EENT: No signs and/or symptoms were reported regarding the EENT system. Derm: No signs and/or symptoms reported regarding the dermatologic system. Skin is pink, warm \T\ dry. normal. Musculoskeletal: No signs and/or symptoms reported regarding the musculoskeletal system. Circulation, motion, and sensation intact. 12:11 Reassessment: Patient appears in no apparent distress at this time. No changes from [facility] previously documented assessment. Patient and/or family updated on plan of care and expected duration. Pain level reassessed. Patient is alert, oriented x 3, equal unlabored respirations, skin warm/dry/pink. 12:47 Reassessment: Patient discharge pending infusion of magnesium completing and rechecking [facility] of blood sugar following insulin administration. 12:48 Reassessment: Patient discharge is also pending X-Ray results. Patient transported to [facility] X-Ray via wheelchair at this time. 13:24 Reassessment: Patient appears in no apparent distress at this time. No changes from aj1 previously documented assessment. Patient and/or family updated on plan of care and expected duration. Pain level reassessed. Patient is alert, oriented x 3, equal unlabored respirations, skin warm/dry/pink. Vital Signs: 10:46 BP 121 / 77; Pulse 96; Resp 19; Temp 97.3(TE); Pulse Ox 98% on R/A; Weight 83.91 kg tw2 (R); Height 5 ft. 1 in. (154.94 cm); Pain 9/10; 12:11 BP 114 / 85; Pulse 71; Resp 18; Pulse Ox 100% on R/A; aj1 13:00 BP 122 / 64; Pulse 83; Resp 18; Pulse Ox 100% on R/A; rv 14:00 BP 117 / 59; Pulse 81; Resp 17; Pulse Ox 97% on R/A; rv 14:30 BP 109 / 53; Pulse 82; Resp 17; Pulse Ox 98% on R/A; rv 10:46 Body Mass Index 34.96 (83.91 kg, 154.94 cm) tw2 ED Course: 10:39 Patient arrived in ED. ag5 10:40 Flip Bates DO is Private Physician. ag5 10:46 Triage completed. tw2 10:47 Arm band placed on. tw2 10:49 Sriram Erazo MD is Attending Physician. sandra 11:00 No provider procedures requiring assistance completed. aj1 11:01 Rafia Lynch, RN is Primary Nurse. aj1 11:15 Patient maintains SpO2 saturation greater than 95% on room air. jp3 11:18 Inserted saline lock: 20 gauge in right antecubital area, using aseptic technique. jp3 Blood collected. 11:18 Initial lab(s) drawn, by me, sent to lab. First set of blood cultures drawn by , jp3 Urine collected: clean catch specimen, clear, chidi colored, Flu and/or RSV swab sent to lab. 11:24 Placed in gown. Bed in low position. Call light in reach. Side rails up X 1. Side rails jp3 up X2. Warm blanket given. Verbal reassurance given. groundwater monitoring technician on. Pulse ox on. NIBP on. 11:32 Second set of blood cultures drawn by me. jp3 11:35 Patient ++FLU; instructed to wear surgical mask outside of patient room. jp3 11:37 EKG done, by ED staff, reviewed by Sriram Erazo MD. jp3 12:37 Flip Bates DO is Referral Physician. sandra 12:39 Notified ED physician of other patient complaining of pain from coughing Notified 3 primary nurse of patient complaining of pain from coughing. (patient is currently finishing breathing treatment). 13:34 Gregg Chavez MD is Referral Physician. sandra 14:48 INCENTIVE SPIROMETRY Sent. rv 14:50 IV discontinued, intact, bleeding controlled, No redness/swelling at site. Pressure rv dressing applied. Administered Medications: 12:05 Drug: Albuterol - atroVENT (3:1) (2.5 mg - 0.5 mg) 3 ml Route: Nebulizer; aj1 14:46 Follow up: Response: No adverse reaction rv 12:05 Drug: Rocephin 1 grams Route: IV; Rate: per protocol; Site: right antecubital; aj1 14:46 Follow up: IV Status: Completed infusion rv 12:05 Drug: Zithromax 500 mg Route: IVPB; Infused Over: 1 hrs; Site: right antecubital; aj1 14:46 Follow up: IV Status: Completed infusion; IV Intake: 250ml rv 12:05 Drug: SOLU-Medrol 125 mg Route: IVP; Site: right antecubital; aj1 14:46 Follow up: Response: No adverse reaction rv 13:00 Drug: Insulin Regular Human 8 units {Co-Signature: tw2 (Joellen Martin RN).} Route: IVP; aj1 Site: right antecubital; 14:45 Follow up: Response: Blood sugar is lowered rv 13:11 Drug: TORadol 30 mg Route: IVP; Site: right antecubital; aj1 14:45 Follow up: Response: No adverse reaction rv 13:11 Drug: Tussionex Pennkinetic ER 5 ml Route: PO; aj1 14:45 Follow up: Response: No adverse reaction rv 13:11 Drug: Tamiflu 75 mg Route: PO; aj1 14:45 Follow up: Response: No adverse reaction rv 13:44 Drug: Magnesium Sulfate 1 grams Route: IVPB; Infused Over: 1 hrs; Site: right aj1 antecubital; 14:45 Follow up: IV Status: Completed infusion rv Intake: 14:46 IV: 250ml; Total: 250ml. rv Outcome: 12:38 Discharge ordered by . sandra 14:49 Discharged to home ambulatory. rv 14:49 Condition: good 14:49 Discharge instructions given to patient, Instructed on discharge instructions, follow up and referral plans. medication usage, Demonstrated understanding of instructions, follow-up care, medications, Prescriptions given X 4. 14:50 Patient left the ED. rv Signatures: Rafia Lynch RN RN aj1 Sriram Erazo MD MD cha Wise, Tara, RN RN tw2 Gene Walsh, RN RN rv Farhat Fulton jp3 Viktoriya Singer ag5 Joellen Martin RN tw2 Corrections: (The following items were deleted from the chart) 12:41 11:35 Patient ++FLU; instructed to wear mask outside of patient room. jp3 jp3
--- NOTE | 2019-09-25 13:46 | EDPHYS ---
Physician Documentation [facility] Name: Latoya Pfeiffer Age: 63 yrs Sex: Female : 1955 Arrival Date: 09/25/2019 Time: 10:39 Bed 24 Private MD: Flip Bates H ED Physician Sriram Erazo HPI: 09/25 11:03 This 63 yrs old Female presents to ER via Ambulatory with complaints of Cold sandra Symptoms, Chest Pain. 11:03 The patient or guardian reports chest pain that is located primarily in the anterior [facility] chest wall. Onset: 3 day(s) ago. The pain does not radiate. Associated signs and symptoms: The patient has no apparent associated signs or symptoms. The chest pain is described as aching, a pressure. Modifying factors: The symptoms are alleviated by nothing. the symptoms are aggravated by activity, breathing, cough. Severity of pain: At its worst the pain was mild moderate in the emergency department the pain has improved moderately. The patient has not experienced similar symptoms in the past. Historical: - Allergies: 10:48 No Known Drug Allergies; tw2 - Home Meds: 10:48 citalopram oral [Active]; Novolin 70/30 [place] Sub-Q 70-30 unit/mL [Active]; tw2 fluconazole Oral [Active]; Metformin Oral [Active]; Zolpidem Tartrate Oral [Active]; phentermine Oral [Active]; Oxybutynin Chloride Oral [Active]; gabapentin Oral [Active]; - PMHx: 10:48 Diabetes - IDDM; insomnia; TIA; Anxiety; tw2 - PSHx: 10:48 ; abdominal tumor removal; hernia operations; Tubal ligation; Cholecystectomy; tw2 Hysterectomy; - Immunization history:: Adult Immunizations. - Social history:: Smoking status: . - Ebola Screening: : Patient denies travel to an Ebola-affected area in the 21 days before illness onset. - Family history:: not pertinent. ROS: 11:03 Constitutional: Negative for fever, chills, and weight loss, Eyes: Negative for injury, sandra pain, redness, and discharge, ENT: Negative for injury, pain, and discharge, Neck: Negative for injury, pain, and swelling, Cardiovascular: Negative for chest pain, palpitations, and edema, Abdomen/GI: Negative for abdominal pain, nausea, vomiting, diarrhea, and constipation, Back: Negative for injury and pain, : Negative for injury, bleeding, discharge, and swelling, MS/Extremity: Negative for injury and deformity, Skin: Negative for injury, rash, and discoloration, Neuro: Negative for headache, weakness, numbness, tingling, and seizure, Psych: Negative for depression, anxiety, suicide ideation, homicidal ideation, and hallucinations, Allergy/Immunology: Negative for hives, rash, and allergies, Endocrine: Negative for neck swelling, polydipsia, polyuria, polyphagia, and marked weight changes, Hematologic/Lymphatic: Negative for swollen nodes, abnormal bleeding, and unusual bruising. 11:03 Respiratory: Positive for cough, with green sputum. Exam: 11:03 Constitutional: This is a well developed, well nourished patient who is awake, alert, sandra and in no acute distress. Head/Face: Normocephalic, atraumatic. Eyes: Pupils equal round and reactive to light, extra-ocular motions intact. Lids and lashes normal. Conjunctiva and sclera are non-icteric and not injected. Cornea within normal limits. Periorbital areas with no swelling, redness, or edema. ENT: Nares patent. No nasal discharge, no septal abnormalities noted. Tympanic membranes are normal and external auditory canals are clear. Oropharynx with no redness, swelling, or masses, exudates, or evidence of obstruction, uvula midline. Mucous membranes moist. Neck: Trachea midline, no thyromegaly or masses palpated, and no cervical lymphadenopathy. Supple, full range of motion without nuchal rigidity, or vertebral point tenderness. No Meningismus. Chest/axilla: Normal chest wall appearance and motion. Nontender with no deformity. No lesions are appreciated. Cardiovascular: Regular rate and rhythm with a normal S1 and S2. No gallops, murmurs, or rubs. Normal PMI, no JVD. No pulse deficits. Abdomen/GI: Soft, non-tender, with normal bowel sounds. No distension or tympany. No guarding or rebound. No evidence of tenderness throughout. Back: No spinal tenderness. No costovertebral tenderness. Full range of motion. Female : Normal external genitalia. Skin: Warm, dry with normal turgor. Normal color with no rashes, no lesions, and no evidence of cellulitis. MS/ Extremity: Pulses equal, no cyanosis. Neurovascular intact. Full, normal range of motion. Neuro: Awake and alert, GCS 15, oriented to person, place, time, and situation. Cranial nerves II-XII grossly intact. Motor strength 5/5 in all extremities. Sensory grossly intact. Cerebellar exam normal. Normal gait. Psych: Awake, alert, with orientation to person, place and time. Behavior, mood, and affect are within normal limits. 11:03 Respiratory: the patient does not display signs of respiratory distress, Respirations: normal, Breath sounds: bronchial sounds, rhonchi, that are mild, stridor, is not appreciated. 13:34 Musculoskeletal/extremity: DVT Exam: No signs of deep vein thrombosis. no pain, no sandra swelling, no tenderness, negative Homans' sign noted on exam, no appreciated bluish discoloration, no erythema, no increased warmth. Vital Signs: 10:46 BP 121 / 77; Pulse 96; Resp 19; Temp 97.3(TE); Pulse Ox 98% on R/A; Weight 83.91 kg tw2 (R); Height 5 ft. 1 in. (154.94 cm); Pain 9/10; 12:11 BP 114 / 85; Pulse 71; Resp 18; Pulse Ox 100% on R/A; aj1 13:00 BP 122 / 64; Pulse 83; Resp 18; Pulse Ox 100% on R/A; rv 14:00 BP 117 / 59; Pulse 81; Resp 17; Pulse Ox 97% on R/A; rv 14:30 BP 109 / 53; Pulse 82; Resp 17; Pulse Ox 98% on R/A; rv 10:46 Body Mass Index 34.96 (83.91 kg, 154.94 cm) tw2 MDM: 10:49 Patient medically screened. [facility] 11:06 Data reviewed: vital signs, nurses notes, lab test result(s), EKG, radiologic studies, [facility] plain films. 09/25 11:03 Order name: Basic Metabolic Panel; Complete Time: 12:34 [facility] 09/25 11:03 Order name: CBC with Diff; Complete Time: 12:34 [facility] 09/25 11:03 Order name: LFT's; Complete Time: 12:34 [facility] 09/25 11:03 Order name: Magnesium; Complete Time: 12:34 [facility] 09/25 11:03 Order name: NT PRO-BNP; Complete Time: 12:34 [facility] 09/25 11:03 Order name: PT-INR; Complete Time: 12:34 [facility] 09/25 11:03 Order name: Troponin (emerg Dept Use Only); Complete Time: 12:34 [facility] 09/25 11:03 Order name: Blood Culture Adult (2) [facility] 09/25 11:03 Order name: Chest Pa And Lat (2 Views) XRAY [facility] 09/25 11:03 Order name: Influenza Screen (a \T\ B); Complete Time: 12:34 [facility] 09/25 13:24 Order name: Glucose, Ancillary Testing; Complete Time: 13:32 EDMS 09/25 13:32 Order name: INCENTIVE SPIROMETRY [facility] 09/25 14:00 Order name: Glucose, Ancillary Testing EDWA 09/25 11:03 Order name: EKG; Complete Time: 11:05 [facility] 09/25 11:03 Order name: Cardiac monitoring; Complete Time: 11:37 [facility] 09/25 11:03 Order name: EKG - Nurse/Tech; Complete Time: 11:37 [facility] 09/25 11:03 Order name: IV Saline Lock; Complete Time: 11:38 [facility] 09/25 11:03 Order name: Labs collected and sent; Complete Time: 11:38 [facility] 09/25 11:03 Order name: O2 Per Protocol; Complete Time: 11:38 [facility] 09/25 11:03 Order name: O2 Sat Monitoring; Complete Time: 11:38 [facility] Administered Medications: 12:05 Drug: Albuterol - atroVENT (3:1) (2.5 mg - 0.5 mg) 3 ml Route: Nebulizer; aj1 14:46 Follow up: Response: No adverse reaction rv 12:05 Drug: Rocephin 1 grams Route: IV; Rate: per protocol; Site: right antecubital; aj1 14:46 Follow up: IV Status: Completed infusion rv 12:05 Drug: Zithromax 500 mg Route: IVPB; Infused Over: 1 hrs; Site: right antecubital; aj1 14:46 Follow up: IV Status: Completed infusion; IV Intake: 250ml rv 12:05 Drug: SOLU-Medrol 125 mg Route: IVP; Site: right antecubital; aj1 14:46 Follow up: Response: No adverse reaction rv 13:00 Drug: Insulin Regular Human 8 units {Co-Signature: tw2 (Joellen Martin RN).} Route: IVP; aj1 Site: right antecubital; 14:45 Follow up: Response: Blood sugar is lowered rv 13:11 Drug: TORadol 30 mg Route: IVP; Site: right antecubital; aj1 14:45 Follow up: Response: No adverse reaction rv 13:11 Drug: Tussionex Pennkinetic ER 5 ml Route: PO; aj1 14:45 Follow up: Response: No adverse reaction rv 13:11 Drug: Tamiflu 75 mg Route: PO; aj1 14:45 Follow up: Response: No adverse reaction rv 13:44 Drug: Magnesium Sulfate 1 grams Route: IVPB; Infused Over: 1 hrs; Site: right aj1 antecubital; 14:45 Follow up: IV Status: Completed infusion rv Disposition: 09/25/19 12:38 Discharged to Home. Impression: Chest pain, unspecified, Influenza due to other identified influenza virus - Flu B, Type 1 diabetes mellitus, Hypomagnesemia, Pneumonia due to other specified bacteria. - Condition is Stable. - Discharge Instructions: Nonspecific Chest Pain, Chest Wall Pain, Type 1 Diabetes Mellitus, Diagnosis, Adult, Hypomagnesemia, Community-Acquired Pneumonia, Adult, Chest Wall Pain, [id number]-[id number], Nonspecific Chest Pain, Uiix-gp-[id number], Aspirin and Your Heart. - Prescriptions for Cheratussin AC 10- 100 mg/5 mL Oral liquid - take 10 milliliter by ORAL route every 6 hours; 160 milliliter. Ibuprofen 600 mg Oral Tablet - take 1 tablet by ORAL route every 8 hours As needed take with food; 21 tablet. Tamiflu 75 mg Oral Capsule - take 1 tablet by ORAL route every 12 hours for 5 days; 10 tablet. Zithromax 500 mg Oral Tablet - take 1 tablet by ORAL route once daily for 5 days; 5 tablet. Albuterol Sulfate 90 mcg/actuation - inhale 1-2 puff by INHALATION route every 4-6 hours; 1 Inhaler. - Work release form, Medication Reconciliation Form, Thank You Letter, Antibiotic Education, Prescription Opioid Use form. - Follow up: Flip Bates DO; When: 2 - 3 days; Reason: Recheck today's complaints, Continuance of care, Re-evaluation by your physician. Follow up: Gregg Chavez MD; When: 2 - 3 days; Reason: Recheck today's complaints, Re-evaluation by your physician. - Problem is new. - Symptoms have improved. Signatures: Dispatcher [employer] EDRafia Boland RN RN aj1 Sriram Erazo MD MD cha Wise, Tara, RN RN tw2 Gene Walsh RN RN teresa Martin RN tw2 Corrections: (The following items were deleted from the chart) 12:41 12:38 09/25/2019 12:38 Discharged to Home. Impression: Chest pain, unspecified; sandra Influenza due to other identified influenza virus - Flu B; Type 1 diabetes mellitus. Condition is Stable. Forms are Medication Reconciliation Form, Thank You Letter, Antibiotic Education, Prescription Opioid Use. [facility]; When: 2 - 3 days; Reason: Recheck today's complaints, Continuance of care, Re-evaluation by your physician. Problem is new. Symptoms have improved. [facility] 13:34 12:41 09/25/2019 12:38 Discharged to Home. Impression: Chest pain, unspecified; sandra Influenza due to other identified influenza virus - Flu B; Type 1 diabetes mellitus; Hypomagnesemia. Condition is Stable. Discharge Instructions: Nonspecific Chest Pain, Chest Wall Pain, Type 1 Diabetes Mellitus, Diagnosis, Adult, Chest Wall Pain, Rzon-hd-Hgoe, Nonspecific Chest Pain, Qqxo-[id number]-Pmln, Aspirin and Your Heart. Prescriptions for Cheratussin AC 10-100 mg/5 mL Oral liquid - take 10 milliliter by ORAL route every 6 hours; 160 milliliter, Ibuprofen 600 mg Oral Tablet - take 1 tablet by ORAL route every 8 hours As needed take with food; 21 tablet, Tamiflu 75 mg Oral Capsule - take 1 tablet by ORAL route every 12 hours for 5 days; 10 tablet, Zithromax 500 mg Oral Tablet - take 1 tablet by ORAL route once daily for 4 days; 4 tablet. and Forms are Medication Reconciliation Form, Thank You Letter, Antibiotic Education, Prescription Opioid Use. [facility]; When: 2 - 3 days; Reason: Recheck today's complaints, Continuance of care, Re-evaluation by your physician. Problem is new. Symptoms have improved. [facility] 13:34 13:34 09/25/2019 12:38 Discharged to Home. Impression: Chest pain, unspecified; sandra Influenza due to other identified influenza virus - Flu B; Type 1 diabetes mellitus; Hypomagnesemia; Pneumonia due to other specified bacteria. Condition is Stable. Discharge Instructions: Nonspecific Chest Pain, Chest Wall Pain, Type 1 Diabetes Mellitus, Diagnosis, Adult, Chest Wall Pain, Erlx-vh-Nwoy, Nonspecific Chest Pain, Coib-nm-Wudh, Aspirin and Your Heart, Hypomagnesemia. Prescriptions for Cheratussin AC 10-100 mg/5 mL Oral liquid - take 10 milliliter by ORAL route every 6 hours; 160 milliliter, Ibuprofen 600 mg Oral Tablet - take 1 tablet by ORAL route every 8 hours As needed take with food; 21 tablet, Tamiflu 75 mg Oral Capsule - take 1 tablet by ORAL route every 12 hours for 5 days; 10 tablet, Zithromax 500 mg Oral Tablet - take 1 tablet by ORAL route once daily for 4 days; 4 tablet. and Forms are Medication Reconciliation Form, Thank You Letter, Antibiotic Education, Prescription Opioid Use. Follow up: Flip Bates; When: 2 - 3 days; Reason: Recheck today's complaints, Continuance of care, Re-evaluation by your physician. Problem is new. Symptoms have improved. sandra 14:50 13:34 09/25/2019 12:38 Discharged to Home. Impression: Chest pain, unspecified; rv Influenza due to other identified influenza virus - Flu B; Type 1 diabetes mellitus; Hypomagnesemia; Pneumonia due to other specified bacteria. Condition is Stable. Discharge Instructions: Nonspecific Chest Pain, Chest Wall Pain, Type 1 Diabetes Mellitus, Diagnosis, Adult, Chest Wall Pain, Swbh-js-Pmzl, Nonspecific Chest Pain, Ppcv-qi-Iaqi, Aspirin and Your Heart, Hypomagnesemia. Prescriptions for Cheratussin AC 10-100 mg/5 mL Oral liquid - take 10 milliliter by ORAL route every 6 hours; 160 milliliter, Ibuprofen 600 mg Oral Tablet - take 1 tablet by ORAL route every 8 hours As needed take with food; 21 tablet, Tamiflu 75 mg Oral Capsule - take 1 tablet by ORAL route every 12 hours for 5 days; 10 tablet, Zithromax 500 mg Oral Tablet - take 1 tablet by ORAL route once daily for 4 days; 4 tablet. and Forms are Medication Reconciliation Form, Thank You Letter, Antibiotic Education, Prescription Opioid Use. Follow up: Flip Bates; When: 2 - 3 days; Reason: Recheck today's complaints, Continuance of care, Re-evaluation by your physician. Follow up: Gregg Chavez; When: 2 - 3 days; Reason: Recheck today's complaints, Re-evaluation by your physician. Problem is new. Symptoms have improved. sandra
[2019-09-25 15:04] VITALS: TEMP 97.3
[2019-09-25 15:10] VITALS: BP 109/53; O2SAT 98
== END 2019-09-25 14:50 | disposition home or self-care (01) ==
LOC: ER 10:37
DX: J10.08 Influenza due to other identified influenza virus with other specified pneumonia (principal); E10.9 Type 1 diabetes mellitus without complications; E83.42 Hypomagnesemia; Z86.73 Personal history of transient ischemic attack (TIA), and cerebral infarction without residual deficits
CPT/HCPCS: 96365; 96367; 96368; 93005; 87040 ×2; 85025; 80048; 36415; 83735; 85610; 82947 ×2; 80076; 84484; 83880; 87804 ×2; 71046; 94640; 96375; 99285; 96366; J0456; J3475; J0696; J7030; J2930

== ENCOUNTER 2020-03-10 19:38 | Emergency (ER) | payer OTHER ==
--- OUTSIDE RECORDS SUMMARY | 2020-03-10 19:39 | XMS REPORT | Continuity of Care Document ---
:[address] [facility] t Address [address] [place] [address] Care Team Providers Name Role Phone Maxim ESCALERA, S Attending Clinician Unavailable Problems This patient has no known problems. Allergies, Adverse Reactions, Alerts This patient has no known allergies or adverse reactions. Medications This patient has no known medications. Procedures This patient has no known procedures. Encounters Start End Encounter Admission Attending Care Care Encounter Source Date/Time Date/Time Type Type Clinicians Facility Department ID 2020-02-29 2020-02-29 Telephone Maxim AJAY [id number] 00:00:00 00:00:00 Jaimie IRIZARRY [id number] [facility] [id number] 2019-02-14 2019-02-14 Outpatient [id number] MH 08:54:00 08:54:00 [facility] Results This patient has no known results.
--- OUTSIDE RECORDS SUMMARY | 2020-03-10 19:39 | XMS REPORT | Summary of Care ---
:1955 Author Organization [facility] Address [address] [place] [id number] Care Team Providers Name Role Phone Bates Primary Care Provider Reason for Visit Reason Comments Results COVID-19 Encounter Details Date Type Department Care Team Description 02/29/2020 Telephone [facility] Jaimie Pan RN Results (COVID-19) [address] [place] [id number] Allergies No Known Allergiesdocumented as of this encounter (statuses as of 02/29/2020) Medications Medication Sig Dispensed Refills Start Date End Date Status citalopram (CELEXA) 40 Take 40 mg by 0 Active mg tablet mouth daily. zolpidem (AMBIEN) 5 mg Take 5 mg by 0 Active tablet mouth at bedtime as needed for Insomnia. metFORMIN (GLUCOPHAGE) Take 500 mg by 0 Active 500 mg tablet mouth 2 (two) times daily with meals. INSULN ASP PRT/INSULIN inject under 0 Active ASPART (NOVOLOG MIX the skin. 70-30 SC) ciprofloxacin HCl Take 1 tablet by 20 tablet 0 08/20/2016 Active (CIPRO) 500 mg tablet mouth 2 (two) times daily. phenazopyridine Take 1 tablet by 9 tablet 0 08/20/2016 Active (PYRIDIUM) 200 mg tablet mouth 3 (three) times daily. ondansetron (ZOFRAN) 4 Take 1 tablet by 30 tablet 0 08/26/2016 Active mg tablet mouth every 8 (eight) hours as needed for Nausea and Vomiting (N/V). ondansetron (ZOFRAN ODT) Take 1 tablet by 12 tablet 0 03/08/20 17 Active 8 mg disintegrating mouth every 8 tablet (eight) hours as needed for Nausea and Vomiting (N/V). traMADOL 50 mg Take 1 tablet by 20 tablet 0 02/14/2019 Active tabletIndications: Acute mouth every 6 pain of right knee (six) hours as needed for Pain (scale 4-6). documented as of this encounter (statuses as of 02/29/2020) Active Problems Problem Noted Date Obesity (BMI 30-39.9) 08/23/2016 Gastroparesis due to DM 08/23/2016 documented as of this encounter (statuses as of 02/29/2020) Immunizations Name Administration Dates Next Due Influenza Virus Vaccine Quad IM 3+ YRS 08/26/2016 Pneumococcal Polysaccharide, PPSV23 (PNEUMOVAX) 08/26/2016 documented as of this encounter Social History Tobacco Use Types Packs/Day Years Used Date Never Smoker Smokeless Tobacco: Never Used Sex Assigned at Date Recorded Not on file Job Start Date Occupation Industry Not on file Not on file Not on file Travel History Travel Start Travel End No recent travel history available. COVID-19 Exposure Response Date Recorded In the last month, have you been in contact with No / Unsure 02/27/2020 2:17 PM CDT someone who was confirmed or suspected to have Coronavirus / COVID-19? documented as of this encounter Last Filed Vital Signs Not on filedocumented in this encounter Plan of Treatment Health Maintenance Due Date Last Done Comments HEPATITIS C (HCV) SCREEN 1955 EYE EXAM 1965 LDL-C 1965 URINE MICROALBUMIN 1965 DTaP,Tdap,and Td Vaccines (1 - 1966 Tdap) Depression Screening 1967 FOOT EXAM 1973 PAP SMEAR 1976 Breast Cancer Screening 1995 (MAMMOGRAM) COLONOSCOPY 2005 Zoster Recombinant Vaccine 2005 (SHINGRIX) (1 of 2) HgA1C 02/21/2017 08/23/2016 CREATININE (SERUM) 03/08/2018 03/08/2017, 08/26/2016, 08/25/2016, Additional history exists INFLUENZA VACCINE (Season Ended) 2020 08/26/2016 PNEUMOCOCCAL 0-64 YEARS COMBINED Completed 08/26/2016 SERIES documented as of this encounter Results Not on filedocumented in this encounter Insurance Payer Benefit Plan / Subscriber ID Effective Dates Phone Addre ss Type Group [facility] [id number] 2016-Present PPO/POS [facility] [id number] 2018-Present PPO/POS documented as of this encounter
[2020-03-10 20:29] LABS: Absolute Lymphocytes (CBC) 1.7 K/uL (0.7-4.9); Basophils % 1.2 % (0-1.3); Hematocrit 46.6 % (36.0-45.0); Lymphocytes % 23.5 % (15.3-44.8); MPV 11.2 fL (7.6-11.3); RBC Red Blood Cell Count 5.18 M/uL (3.86-4.86)
[2020-03-10] MEDS ORDERED: ONDANSETRON 4 MG/2 ML VIAL ONE (20:31)
[2020-03-10] MEDS ORDERED: NA CHLORIDE 0.9% 1,000 ML ONE (20:31)
[2020-03-10] MEDS ORDERED: INSULIN -REGULAR HUMAN 50 UNIT/0.5 ML ML ONE (20:47)
[2020-03-10 20:56] LABS: Albumin 3.7 g/dL (3.4-5.0); Bilirubin Direct 0.2 mg/dL (0-0.2); Bilirubin Total 0.6 mg/dL (0.2-1.0); Potassium 4.1 mmol/L (3.5-5.1); Protein, Total 8.3 g/dL (6.4-8.2)
[2020-03-10] MEDS ORDERED: INSULIN GLARGINE 100 UNITS/ML SQ ONE (20:58)
--- NOTE | 2020-03-10 21:41 | ER ---
Nurse's Notes [facility] Name: Latoya Pfeiffer Age: 64 yrs Sex: Female : 1955 Arrival Date: 03/10/2020 Time: 19:40 Bed 8 Private MD: Diagnosis: Type 2 diabetes mellitus;Weakness Presentation: 03/10 19:50 Chief complaint: Patient states: Weakness, dizziness, nausea, not feeling well for 2 ll1 days. Out of insulin since Wednesday. 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 Coronavirus screen: Proceed with normal triage. Patient denies a cough. Patient denies shortness of breath or difficulty breathing. Patient denies measured and/or subjective temperature greater than 100.4F prior to today's visit. Patient denies travel on a cruise ship or to a country the [facility] currently lists as an affected area. Patient denies contact with known and/or suspected case of COVID-19. Ebola Screen: Patient denies travel to an Ebola-affected area in the 21 days before illness onset. Initial Sepsis Screen: Does the patient meet any 2 criteria? No. Patient's initial sepsis screen is negative. Risk Assessment: Do you want to hurt yourself or someone else? Patient reports no desire to harm self or others. Onset of symptoms was March 09, 2020. 19:50 Method Of Arrival: Ambulatory ll1 19:50 Acuity: LUCINA 3 ll1 20:46 Initial Sepsis Screen: Does the patient have a suspected source of infection? No. rv Patient's initial sepsis screen is negative. Stroke Activation: Symptom onset > 6 hours Physician: Stroke Attending; Name: ; Notified At: ; Arrived At: Physician: Chief Stroke Resident; Name: ; Notified At: ; Arrived At: Physician: Stroke Resident; Name: ; Notified At: ; Arrived At: Physician: ED Attending; Name: ; Notified At: ; Arrived At: Physician: ED Resident; Name: ; Notified At: ; Arrived At: Historical: - Allergies: 19:53 No Known Drug Allergies; ll1 - PMHx: 19:53 Anxiety; Diabetes - IDDM; insomnia; TIA; ll1 - PSHx: 19:53 abdominal tumor removal; hernia operations; Tubal ligation; Cholecystectomy; ; ll1 Hysterectomy; - Immunization history:: Flu vaccine is up to date. - Social history:: Smoking status: Patient denies any tobacco usage or history of. Patient/guardian denies using alcohol, street drugs, tobacco products. - Family history:: not pertinent. Screenin:45 Abuse screen: Denies threats or abuse. Denies injuries from another. Nutritional rv screening: No deficits noted. Tuberculosis screening: No symptoms or risk factors identified. Fall Risk None identified. Assessment: 20:45 General: Appears comfortable, Behavior is calm, cooperative. Pain: Denies pain. Neuro: rv Level of Consciousness is awake, alert, obeys commands, Oriented to person, place, time, situation. Cardiovascular: Patient's skin is warm and dry. Cardiovascular: Rhythm is sinus rhythm. Respiratory: Airway is patent. GI: Reports nausea. GI: Patient currently denies abdominal pain. Derm: Skin is intact. Vital Signs: 19:50 BP 128 / 91; Pulse 82; Resp 18; Temp 99.0; Pulse Ox 98% ; Pain 8/10; ll1 20:30 BP 134 / 69; Pulse 66; Resp 15; Pulse Ox 99% on R/A; rv 21:39 BP 137 / 79; Pulse 72; Resp 20; Temp 98.7; Pulse Ox 100% on R/A; rv ED Course: 19:40 Patient arrived in ED. cf2 19:52 Triage completed. ll1 19:54 Arm band placed on. ll1 20:16 Gene Walsh, RN is Primary Nurse. rv 20:20 Inserted saline lock: 18 gauge in right antecubital area, using aseptic technique. rv Blood collected. 20:20 No provider procedures requiring assistance completed. Initial lab(s) drawn, by nh, rv sent to lab. 20:25 Sriram Erazo MD is Attending Physician. sandra 20:45 Patient has correct armband on for positive identification. Bed in low position. Call rv light in reach. Side rails up X 1. Pulse ox on. NIBP on. 21:48 IV discontinued, intact, bleeding controlled, No redness/swelling at site. Pressure rv dressing applied. Administered Medications: 20:30 Drug: NS 0.9% 1000 ml Route: IV; Rate: 1 bolus; Site: right antecubital; rv 21:10 Follow up: IV Status: Completed infusion; IV Intake: 1000ml rv 20:31 Drug: Zofran (Ondansetron) 4 mg Route: IVP; Site: right antecubital; rv 21:10 Follow up: Response: No adverse reaction; Marked relief of symptoms; Nausea is decreasedrv 20:44 Drug: Insulin Regular Human 10 units {Co-Signature: vc (Felipa Aranda RN).} Route: rv IVP; Site: right antecubital; 21:39 Follow up: Response: Blood sugar is lowered rv 21:10 Drug: LanTUS 30 units Route: Sub-Q; Site: abdomen; rv 21:39 Follow up: Response: No adverse reaction rv Intake: 21:10 IV: 1000ml; Total: 1000ml. rv Outcome: 21:41 Discharge ordered by . sandra 21:48 Discharged to home ambulatory. rv 21:48 Condition: good 21:48 Discharge instructions given to patient, Instructed on discharge instructions, follow up and referral plans. medication usage, Demonstrated understanding of instructions, follow-up care, medications, Prescriptions given X 1. 21:48 Patient left the ED. rv Signatures: Sriram Erazo MD MD cha Vicente, Ronaldo RN RN Marty Zamorano cf2 Xavi Belle RN RN ll1 Felipa Aranda RN, vc
--- NOTE | 2020-03-10 21:41 | EDPHYS ---
Physician Documentation [facility] Name: Latoya Pfeiffer Age: 64 yrs Sex: Female : 1955 Arrival Date: 03/10/2020 Time: 19:40 Bed 8 Private MD: ED Physician Sriram Erazo HPI: 03/10 20:35 This 64 yrs old Female presents to ER via Ambulatory with complaints of High sandra Blood Sugar, Dizziness, Weakness. 20:35 The patient or guardian reports hyperglycemia, that was potentially precipitated by no sandra particular event. that was potentially precipitated by forgetting medications. Onset: The symptoms/episode began/occurred 2 day(s) ago. Associated signs and symptoms: Pertinent positives: None. Current symptoms: In the emergency department the patient's symptoms are unchanged from the initial presentation, despite home interventions. The patient has experienced similar episodes in the past, multiple times. Historical: - Allergies: 19:53 No Known Drug Allergies; ll1 - PMHx: 19:53 Anxiety; Diabetes - IDDM; insomnia; TIA; ll1 - PSHx: 19:53 abdominal tumor removal; hernia operations; Tubal ligation; Cholecystectomy; ; ll1 Hysterectomy; - Immunization history:: Flu vaccine is up to date. - Social history:: Smoking status: Patient denies any tobacco usage or history of. Patient/guardian denies using alcohol, street drugs, tobacco products. - Family history:: not pertinent. ROS: 20:35 Constitutional: Negative for fever, chills, and weight loss, Eyes: Negative for injury, sandra pain, redness, and discharge, ENT: Negative for injury, pain, and discharge, Neck: Negative for injury, pain, and swelling, Cardiovascular: Negative for chest pain, palpitations, and edema, Respiratory: Negative for shortness of breath, cough, wheezing, and pleuritic chest pain, Abdomen/GI: Negative for abdominal pain, nausea, vomiting, diarrhea, and constipation, Back: Negative for injury and pain, : Negative for injury, bleeding, discharge, and swelling, MS/Extremity: Negative for injury and deformity, Skin: Negative for injury, rash, and discoloration, Neuro: Negative for headache, weakness, numbness, tingling, and seizure, Psych: Negative for depression, anxiety, suicide ideation, homicidal ideation, and hallucinations, Allergy/Immunology: Negative for hives, rash, and allergies, Hematologic/Lymphatic: Negative for swollen nodes, abnormal bleeding, and unusual bruising. 20:35 Endocrine: Positive for polydipsia, polyuria, Negative for goiter, cold intolerance, heat intolerance, polyphagia, weight gain. Exam: 20:35 Constitutional: This is a well developed, well nourished patient who is awake, alert, sandra and in no acute distress. Head/Face: Normocephalic, atraumatic. Eyes: Pupils equal round and reactive to light, extra-ocular motions intact. Lids and lashes normal. Conjunctiva and sclera are non-icteric and not injected. Cornea within normal limits. Periorbital areas with no swelling, redness, or edema. ENT: Nares patent. No nasal discharge, no septal abnormalities noted. Tympanic membranes are normal and external auditory canals are clear. Oropharynx with no redness, swelling, or masses, exudates, or evidence of obstruction, uvula midline. Mucous membranes moist. Neck: Trachea midline, no thyromegaly or masses palpated, and no cervical lymphadenopathy. Supple, full range of motion without nuchal rigidity, or vertebral point tenderness. No Meningismus. Chest/axilla: Normal chest wall appearance and motion. Nontender with no deformity. No lesions are appreciated. Cardiovascular: Regular rate and rhythm with a normal S1 and S2. No gallops, murmurs, or rubs. Normal PMI, no JVD. No pulse deficits. Respiratory: Lungs have equal breath sounds bilaterally, clear to auscultation and percussion. No rales, rhonchi or wheezes noted. No increased work of breathing, no retractions or nasal flaring. Abdomen/GI: Soft, non-tender, with normal bowel sounds. No distension or tympany. No guarding or rebound. No evidence of tenderness throughout. Back: No spinal tenderness. No costovertebral tenderness. Full range of motion. Female : Normal external genitalia. Skin: Warm, dry with normal turgor. Normal color with no rashes, no lesions, and no evidence of cellulitis. MS/ Extremity: Pulses equal, no cyanosis. Neurovascular intact. Full, normal range of motion. Neuro: Awake and alert, GCS 15, oriented to person, place, time, and situation. Cranial nerves II-XII grossly intact. Motor strength 5/5 in all extremities. Sensory grossly intact. Cerebellar exam normal. Normal gait. Psych: Awake, alert, with orientation to person, place and time. Behavior, mood, and affect are within normal limits. 21:36 ECG was reviewed by the Attending Physician. [facility] Vital Signs: 19:50 BP 128 / 91; Pulse 82; Resp 18; Temp 99.0; Pulse Ox 98% ; Pain 8/10; ll1 20:30 BP 134 / 69; Pulse 66; Resp 15; Pulse Ox 99% on R/A; rv 21:39 BP 137 / 79; Pulse 72; Resp 20; Temp 98.7; Pulse Ox 100% on R/A; rv MDM: 20:25 Patient medically screened. [facility] 20:39 Differential diagnosis: Davon's syndrome, diabetes insipidus, DKA, hyperglycemia, sandra hypoglycemic episode, hypothyroidism. Data reviewed: vital signs, nurses notes. Data interpreted: phototypesetting equipment monitor: rate is 82 beats/min, rhythm is normal sinus rhythm, Pulse oximetry: on room air is 98 %. Test interpretation: by ED physician or midlevel provider: ECG. 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 20:49 ED course: out of insukin, wean, no cp, otherwise no complaints, will follow up dr carranza. [facility] 03/10 20:12 Order name: Glucose, Ancillary Testing; Complete Time: 20:34 [facility] 03/10 20:17 Order name: Basic Metabolic Panel; Complete Time: 21:20 03/10 20:17 Order name: CBC with Diff; Complete Time: 20:34 03/10 20:17 Order name: Hepatic Function; Complete Time: 21:20 03/10 20:17 Order name: Lipase; Complete Time: 21:20 03/10 20:26 Order name: Glucose, Ancillary Testing; Complete Time: 20:34 [facility] 03/10 20:17 Order name: IV Saline Lock; Complete Time: 20:44 03/10 20:17 Order name: Labs collected and sent; Complete Time: 20:44 03/10 20:34 Order name: EKG; Complete Time: 20:35 [facility] 03/10 20:34 Order name: EKG - Nurse/Tech; Complete Time: 20:44 sandra EC:36 Rate is 63 beats/min. Rhythm is regular. QRS [place] is Normal. DC interval is normal. QRS sandra interval is normal. QT interval is normal. No Q waves. T waves are Normal. No ST changes noted. Clinical impression: Normal ECG and No evidence of ischemia. Interpreted by me. Reviewed by me. Administered Medications: 20:30 Drug: NS 0.9% 1000 ml Route: IV; Rate: 1 bolus; Site: right antecubital; rv 21:10 Follow up: IV Status: Completed infusion; IV Intake: 1000ml rv 20:31 Drug: Zofran (Ondansetron) 4 mg Route: IVP; Site: right antecubital; rv 21:10 Follow up: Response: No adverse reaction; Marked relief of symptoms; Nausea is decreasedrv 20:44 Drug: Insulin Regular Human 10 units {Co-Signature: vc (Felipa Aranda RN).} Route: rv IVP; Site: right antecubital; 21:39 Follow up: Response: Blood sugar is lowered rv 21:10 Drug: LanTUS 30 units Route: Sub-Q; Site: abdomen; rv 21:39 Follow up: Response: No adverse reaction rv Disposition: 03/10/20 21:41 Discharged to Home. Impression: Type 2 diabetes mellitus, Weakness. - Condition is Stable. - Discharge Instructions: Type 1 Diabetes Mellitus, Diagnosis, Adult, Weakness, Fatigue, Weakness, [id number], Type 1 Diabetes Mellitus, Self Care, Adult, Type 1 Diabetes Mellitus, Diagnosis, Adult, [id number], Type 1 Diabetes Mellitus, Self Care, Adult, [id number]. - Medication Reconciliation Form, Thank You Letter, Antibiotic Education, Prescription Opioid Use form. - Follow up: Private Physician; When: 2 - 3 days; Reason: Recheck today's complaints, Continuance of care, Re-evaluation by your physician. - Problem is new. - Symptoms have improved. Signatures: Dispatcher [employer] EDSriram Butt MD MD cha Vicente, Ronaldo, RN RN rv Xavi Belle RN RN ll1 eFlipa Aranda RN vc Corrections: (The following items were deleted from the chart) 21:48 21:41 03/10/2020 21:41 Discharged to Home. Impression: Type 2 diabetes mellitus; rv Weakness. Condition is Stable. Discharge Instructions: Type 1 Diabetes Mellitus, Diagnosis, Adult, Weakness, Fatigue, Weakness, [id number], Type 1 Diabetes Mellitus, Self Care, Adult, Type 1 Diabetes Mellitus, Diagnosis, Adult, [id number], Type 1 Diabetes Mellitus, Self Care, Adult, [id number]-[id number]. Forms are Medication Reconciliation Form, Thank You Letter, Antibiotic Education, Prescription Opioid Use. Follow up: Private Physician; When: 2 - 3 days; Reason: Recheck today's complaints, Continuance of care, Re-evaluation by your physician. Problem is new. Symptoms have improved. sandra
[2020-03-10 21:55] VITALS: BP 137/79; TEMP 98.7; O2SAT 100
== END 2020-03-10 21:48 | disposition home or self-care (01) ==
LOC: ER 19:38
DX: E11.65 Type 2 diabetes mellitus with hyperglycemia (principal)
CPT/HCPCS: 96361; 93005; 85025; 80048; 36415; 82947 ×3; 80076; 83690; 96375; 96372; 96374; 99284; J1815; J7030; J2405

== ENCOUNTER 2020-08-11 13:00 | Emergency (ER) | payer OTHER ==
--- OUTSIDE RECORDS SUMMARY | 2020-08-11 13:03 | XMS REPORT | Continuity of Care Document ---
:1955 Author Organization [facility] t Address [address] [place] [address] Care Team Providers Name Role Phone Maxim [...] Clinicians Facility Department ID 2020-02-29 2020-02-29 Telephone AJAY Pan [id number] 00:00:00 00:00:00 Jaimie Angeles JUAN C [id number] [facility] [id number] 2019-02-14 2019-02-14 Outpatient MHSE [id number] MH 08:54:00 08:54:00 [facility] Results This patient has no known results.
--- NOTE | 2020-08-11 14:08 | RAD REPORT ---
EXAM DESCRIPTION: RAD - Chest Single View - 08/11/2020 2:02 pm CLINICAL HISTORY: COUGH Chest pain. COMPARISON: Chest Single View dated 10/23/2019; Chest Pa And Lat (2 Views) dated 09/25/2019; Chest Singl e View dated 06/21/2019; Chest Pa And Lat (2 Views) dated 09/29/2018 FINDINGS: Portable technique limits examination quality. The lungs are grossly clear. The heart is normal in size. No displaced fractures. IMPRESSION: No acute intrathoracic process suspected.
[2020-08-11 14:51] LABS: Urine Blood NEGATIVE (NEG); Urine Glucose 3+ (NEG); Urine Protein NEGATIVE (NEG)
[2020-08-11 15:01] LABS: Urine Bacteria <20 /HPF (<20); Urine Culture Reflex Order NOT NEEDED; Urine RBC <5 /HPF (NONE SEEN)
--- NOTE | 2020-08-11 16:20 | EDPHYS ---
Physician Documentation [facility] Name: Latoya Pfeiffer Age: 64 yrs Sex: Female : 1955 Arrival Date: 08/11/2020 Time: 13:02 Bed 19 Private MD: ED Physician Stalin Hernandez HPI: 08/11 13:36 This 64 yrs old Female presents to ER via Ambulatory with complaints of Cough. pm1 13:36 The patient or guardian reports cough, with no sputum. Onset: The symptoms/episode pm1 began/occurred 3 day(s) ago. Severity of symptoms: in the emergency department the symptoms are actually worse. Modifying factors: The symptoms are alleviated by nothing, the symptoms are aggravated by nothing. Associated signs and symptoms: Pertinent positives: bodyaches and chills, sore throat, nausea, change of taste, Pertinent negatives: ear ache, vomiting, diarrhea. The patient has not experienced similar symptoms in the past. Patient with dry cough for the past 3 days. 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 Patient reports chest pain with coughing. Reports increased urination without burning. Historical: - Allergies: 13:26 No Known Drug Allergies; ll1 - PMHx: 13:26 Anxiety; TIA; Diabetes - IDDM; insomnia; ll1 - PSHx: 13:26 abdominal tumor removal; hernia operations; Tubal ligation; Cholecystectomy; ; ll1 Hysterectomy; - Immunization history:: Flu vaccine is not up to date. - Social history:: Smoking status: Patient denies any tobacco usage or history of. ROS: 13:36 Constitutional: Negative for fever, chills, and weight loss, Respiratory: Negative for pm1 shortness of breath, cough, wheezing, and pleuritic chest pain, Abdomen/GI: Negative for abdominal pain, nausea, vomiting, diarrhea, and constipation. 13:36 Neck: Negative for injury, pain, and swelling, Back: Negative for injury and pain, MS/Extremity: Negative for injury and deformity, Skin: Negative for injury, rash, and discoloration. 13:36 Neuro: Negative for headache, weakness, numbness, tingling, and seizure. 13:36 ENT: Positive for sore throat, Negative for drainage from ear(s), ear pain. 13:36 Cardiovascular: Positive for chest pain, with cough, Negative for edema, palpitations. Exam: 13:36 Constitutional: This is a well developed, well nourished patient who is awake, alert, pm1 and in no acute distress. Head/Face: Normocephalic, atraumatic. Chest/axilla: Normal chest wall appearance and motion. Nontender with no deformity. No lesions are appreciated. 13:36 Back: No spinal tenderness. No costovertebral tenderness. Full range of motion. Skin: Warm, dry with normal turgor. Normal color with no rashes, no lesions, and no evidence of cellulitis. MS/ Extremity: Pulses equal, no cyanosis. Neurovascular intact. Full, normal range of motion. 13:36 Cardiovascular: Rate: normal, Rhythm: regular, Pulses: no pulse deficits are appreciated, Heart sounds: normal. 13:36 Respiratory: Exam negative for acute changes, respiratory distress, shortness of breath, Respirations: normal, no acute changes, Breath sounds: are clear throughout. 13:36 Abdomen/GI: Exam negative for acute changes, Inspection: abdomen appears normal, Palpation: abdomen is soft and non-tender, in all quadrants. 13:36 Neuro: Exam negative for acute changes, Orientation: is normal, Mentation: is normal, Motor: is normal, moves all fours. Vital Signs: 13:24 BP 145 / 79; Pulse 73; Resp 18; Temp 98.5; Pulse Ox 99% on R/A; Pain 9/10; ll1 15:48 BP 138 / 70; Pulse 72; Resp 18; Pulse Ox 98% ; ll1 16:40 BP 140 / 54; Pulse 64; Resp 17; Pulse Ox 99% ; Pain 0/10; sv MDM: 13:19 Patient medically screened. pm1 16:18 Data reviewed: vital signs. Data interpreted: Pulse oximetry: on room air is 98 %. pm1 Interpretation: normal. Counseling: I had a detailed discussion with the patient and/or guardian regarding: the historical points, exam findings, and any diagnostic results supporting the discharge/admit diagnosis, lab results, radiology results, the need for outpatient follow up, to return to the emergency department if symptoms worsen or persist or if there are any questions or concerns that arise at home. 08/11 13:36 Order name: [id number] pm1 08/11 13:36 Order name: Flu; Complete Time: 16:18 pm1 08/11 13:36 Order name: Strep; Complete Time: 16:18 pm1 08/11 13:36 Order name: Urine Microscopic Only; Complete Time: 15:13 pm1 08/11 14:25 Order name: Urine Dipstick--Ancillary (enter results); Complete Time: 14:58 nc 08/11 15:57 Order name: Throat Culture [facility] 08/11 13:36 Order name: CXR XRAY; Complete Time: 14:09 pm1 08/11 13:36 Order name: Droplet/Contact Precautions; Complete Time: 13:37 pm1 08/11 13:36 Order name: Labs collected and sent; Complete Time: 13:37 pm1 08/11 13:36 Order name: Urine Dipstick-Ancillary (obtain specimen); Complete Time: 13:37 pm1 Administered Medications: 14:09 Drug: Albuterol 2.5 mg Route: Inhalation; ll1 15:58 Follow up: Response: No adverse reaction; RASS: Alert and Calm (0) ll1 16:39 Drug: Tussionex Pennkinetic ER 5 ml Route: PO; ll1 17:18 Follow up: Response: No adverse reaction; RASS: Alert and Calm (0) sv Disposition: 16:44 Co-signature as Attending Physician, Stalin Hernandez MD. rn Disposition: 08/11/20 16:19 Discharged to Home. Impression: Acute upper respiratory infection, unspecified. - Condition is Stable. - Discharge Instructions: Antibiotic Resistance, Upper Respiratory Infection, Adult, COVID-19. - Prescriptions for Albuterol Sulfate 90 mcg/actuation - inhale 1-2 puff by INHALATION route every 4-6 hours; 1 Inhaler. Guaifenesin AC 10- 100 mg/5 mL Oral Liquid - take 10 milliliter by ORAL route every 4 hours As needed; 240 milliliter. - Work release form, Medication Reconciliation Form, Thank You Letter, Antibiotic Education, Prescription Opioid Use form. - Follow up: Emergency Department; When: As needed; Reason: Worsening of condition. Follow up: Private Physician; When: 2 - 3 days; Reason: Recheck today's complaints, Continuance of care, Re-evaluation by your physician. - Problem is new. - Symptoms have improved. Signatures: Dispatcher [employer] EDMS Stalin Hernandez MD MD rn Deniz Bear, HUMAN RESOURCES ADMIN HUMAN RESOURCES ADMIN pm1 Xavi Belle RN RN ll1 Christen Salas RN Corrections: (The following items were deleted from the chart) 13:37 13:36 Document PUI# ordered. pm1 ll1 16:41 16:19 08/11/2020 16:19 Discharged to Home. Impression: Acute upper respiratory ll1 infection, unspecified. Condition is Stable. Forms are Medication Reconciliation Form, Thank You Letter, Antibiotic Education, Prescription Opioid Use. Follow up: Emergency Department; When: As needed; Reason: Worsening of condition. Follow up: Private Physician; When: 2 - 3 days; Reason: Recheck today's complaints, Continuance of care, Re-evaluation by your physician. Problem is new. Symptoms have improved. pm1
--- NOTE | 2020-08-11 16:20 | ER ---
Nurse's Notes [facility] Name: Latoya Pfeiffer Age: 64 yrs Sex: Female : 1955 Arrival Date: 08/11/2020 Time: 13:02 Bed 19 Private MD: Diagnosis: Acute upper respiratory infection, unspecified Presentation: 08/11 13:24 Chief complaint: Patient states: Cough, CP, chills for 3 days. Needs work release for ll1 work. Fever 99.9 at home. + nausea. Coronavirus screen: Client denies travel out of the [place] in the last 14 days. chills, congestion, cough unrelated to allergies, fatigue, fever, nausea, Client presents with at least one sign or symptom that may indicate coronavirus-19. Standard/surgical mask placed on the client. Ebola Screen: Patient denies travel to an Ebola-affected area in the 21 days before illness onset. Initial Sepsis Screen: Does the patient meet any 2 criteria? No. Patient's initial sepsis screen is negative. Does the patient have a suspected source of infection? Yes: Productive cough/pneumonia. Risk Assessment: Do you want to hurt yourself or someone else? Patient reports no desire to harm self or others. Onset of symptoms was August 09, 2020. 13:24 Method Of Arrival: Ambulatory ll1 13:24 Acuity: LUCINA 3 ll1 Historical: - Allergies: 13:26 No Known Drug Allergies; ll1 - PMHx: 13:26 Anxiety; TIA; Diabetes - IDDM; insomnia; ll1 - PSHx: 13:26 abdominal tumor removal; hernia operations; Tubal ligation; Cholecystectomy; ; ll1 Hysterectomy; - Immunization history:: Flu vaccine is not up to date. - Social history:: Smoking status: Patient denies any tobacco usage or history of. Screenin:40 Abuse screen: Denies threats or abuse. Nutritional screening: No deficits noted. ll1 Tuberculosis screening: No symptoms or risk factors identified. Fall Risk Total Clayton Fall Scale indicates No Risk (0-24 pts). Assessment: 13:30 General: Appears uncomfortable, Behavior is calm, cooperative, appropriate for age. ll1 Neuro: No deficits noted. Cardiovascular: Reports chest pain, Heart tones S1 S2 Capillary refill < 3 seconds Clubbing of nail beds is absent Patient's skin is warm and dry. Pulses are all present. Respiratory: Reports cough that is Airway is patent Trachea midline Respiratory effort is even, unlabored, Respiratory pattern is regular, symmetrical, Breath sounds are clear bilaterally. GI: Abdomen is flat, Bowel sounds present X 4 quads. Abd is soft and non tender X 4 quads. Reports nausea, vomiting. Musculoskeletal: Reports weakness in Generalized weakness and fatigue. 14:30 Reassessment: Patient and/or family updated on plan of care and expected duration. Pain ll1 level reassessed. Patient is alert, oriented x 3, equal unlabored respirations, skin warm/dry/pink. 15:30 Reassessment: Patient and/or family updated on plan of care and expected duration. Pain ll1 level reassessed. Patient is alert, oriented x 3, equal unlabored respirations, skin warm/dry/pink. 15:51 Pain: Pain does not radiate. Pain began 2-3 days ago. ll1 16:30 Reassessment: Patient and/or family updated on plan of care and expected duration. Pain sv level reassessed. Vital Signs: 13:24 BP 145 / 79; Pulse 73; Resp 18; Temp 98.5; Pulse Ox 99% on R/A; Pain 9/10; ll1 15:48 BP 138 / 70; Pulse 72; Resp 18; Pulse Ox 98% ; ll1 16:40 BP 140 / 54; Pulse 64; Resp 17; Pulse Ox 99% ; Pain 0/10; sv ED Course: 13:02 Patient arrived in ED. ds1 13:18 Deniz Bear NP is PHCP. pm1 13:18 Stalin Hernandez MD is Attending Physician. pm1 13:24 Xavi Belle, LALI is Primary Nurse. ll1 13:25 Triage completed. ll1 13:26 Arm band placed on Patient placed in an exam room, on a stretcher. ll1 13:30 Patient has correct armband on for positive identification. Bed in low position. Call ll1 light in reach. Side rails up X2. monitor worker on. Pulse ox on. NIBP on. 14:03 CXR XRAY In Process Unspecified. EDMS 15:51 Patient maintains SpO2 saturation greater than 95% on room air. ll1 16:40 No provider procedures requiring assistance completed. Patient did not have IV access sv during this emergency room visit. Administered Medications: 14:09 Drug: Albuterol 2.5 mg Route: Inhalation; ll1 15:58 Follow up: Response: No adverse reaction; RASS: Alert and Calm (0) ll1 16:39 Drug: Tussionex Pennkinetic ER 5 ml Route: PO; ll1 17:18 Follow up: Response: No adverse reaction; RASS: Alert and Calm (0) sv Outcome: 16:19 Discharge ordered by MD. pm1 16:41 Patient left the ED. ll1 16:41 Discharged to home via wheelchair. sv 16:41 Condition: stable 16:41 Discharge instructions given to patient, Instructed on discharge instructions, follow up and referral plans. medication usage, Demonstrated understanding of instructions, follow-up care, medications, Prescriptions given X 2. Addendum: 08/13/2020 16:49 Addendum: COVID-19 Result: Negative result given to RN to notify pt. Notified pt of i w negative COVID 19 swab results. Pt advised that even with a negative test result they should remain in isolation until symptom free for 3 days without medication. Pt also advised to return to the ED for worsening symptoms. Signatures: Dispatcher [employer] EDMS Christen Salas RN RN sv Sanford, Demi ds1 Di Bills RN RN iw Marinas, Patrick, NP RN TRANSPORT pm1 Xavi Belle RN RN ll1 Corrections: (The following items were deleted from the chart) 08/11 17:26 16:41 Discharge instructions given to patient, Instructed on discharge instructions, sv follow up and referral plans. medication usage, crutch walking, Demonstrated understanding of instructions, follow-up care, medications, crutch walking, splint care, Prescriptions given X 1, sv
[2020-08-11] MEDS ORDERED: HYDROCODONE/CHLORPHEN 5 ML/OSYR ONE (16:47)
[2020-08-11 20:32] VITALS: TEMP 98.5
[2020-08-11 20:33] VITALS: BP 138/70; O2SAT 98
== END 2020-08-11 16:41 | disposition home or self-care (01) ==
LOC: ER 13:00
DX: J06.9 Acute upper respiratory infection, unspecified (principal); Z20.828 Contact with and (suspected) exposure to other viral communicable diseases
CPT/HCPCS: 87070; 87081; 87804 ×2; 71045; 99285; U0002; 81003; 81015

== ENCOUNTER 2020-11-13 18:07 | Emergency (ER) | payer OTHER ==
[2012-03-28 12:02] VITALS: BP 110/68
--- OUTSIDE RECORDS SUMMARY | 2020-11-13 18:10 | XMS REPORT | Continuity of Care Document ---
:1955 Author Organization [facility] t Address [address] [place] [address] Care Team Providers Name Role Phone Maxim [...] Department ID 2020-02-29 2020-02-29 Telephone AJAY Pan [id number] 00:00:00 00:00:00 Jaimie IRIZARRY [id number] [facility] [id number] 2019-02-14 2019-02-14 Outpatient MHSE MHSE [id number] MH 08:54:00 08:54:00 [facility] l Results This patient has no known results.
--- NOTE | 2020-11-13 20:02 | ER ---
Nurse's Notes [facility] Name: Latoya Pfeiffer Age: 65 yrs Sex: Female : 1955 Arrival Date: 11/13/2020 Time: 18:10 Bed 25 Private MD: Diagnosis: Presentation: 11/13 18:25 Chief complaint: Patient states: Chest pain, R, constant radiating to the R side, R ca1 upper back x 2 weeks. Constant and worse since last night. Coronavirus screen: Client denies travel out of the [place] in the last 14 days. At this time, the client does not indicate any symptoms associated with coronavirus-19. Ebola Screen: Patient negative for fever greater than or equal to 101.5 degrees Fahrenheit, and additional compatible Ebola Virus Disease symptoms Patient denies exposure to infectious person. Patient denies travel to an Ebola-affected area in the 21 days before illness onset. No symptoms or risks identified at this time. Initial Sepsis Screen: Does the patient meet any 2 criteria? No. Patient's initial sepsis screen is negative. Does the patient have a suspected source of infection? No. Patient's initial sepsis screen is negative. Risk Assessment: Do you want to hurt yourself or someone else? Patient reports no desire to harm self or others. Onset of symptoms was November 13, 2020. 18:25 Method Of Arrival: Ambulatory ca1 18:25 Acuity: LUCINA 3 ca1 20:01 Note called pt's number, VM is full. ca1 Historical: - Allergies: 18:28 No Known Allergies; ca1 - Home Meds: 18:28 fluconazole Oral [Active]; ca1 - PMHx: 18:28 Anxiety; Diabetes - IDDM; insomnia; TIA; ca1 - PSHx: 18:28 abdominal tumor removal; hernia operations; Tubal ligation; Cholecystectomy; ; ca1 Hysterectomy; - Immunization history:: Flu vaccine is up to date. - Social history:: Smoking status: Patient denies any tobacco usage or history of. Vital Signs: 18:25 BP 149 / 88; Pulse 84; Resp 18 S; Temp 97(TE); Pulse Ox 99% on R/A; Weight 84.37 kg ca1 (R); Height 5 ft. 0 in. (152.40 cm) (R); Pain 10/10; 18:25 Body Mass Index 36.33 (84.37 kg, 152.40 cm) ca1 ED Course: 18:10 Patient arrived in ED. ag5 18:27 Triage completed. ca1 18:28 Arm band placed on right wrist. ca1 19:58 Iker Kulkarni PA is PHCP. justa 19:58 Sriram Erazo MD is Attending Physician. [facility] 20:01 Patient's name was called from ER lobby. No response. Unable to locate patient. Will ca1 disposition as left without being seen by a provider. Administered Medications: No medications were administered Outcome: 20:02 Patient left the ED. ca1 Signatures: Iker Kulkarni PA PA jmm Acob, Cheryl, RN RN ca1 Viktoriya Singer ag5
--- NOTE | 2020-11-14 05:36 | EKG ---
Test Date: 2020-11-13 Test Time: 18:31:46 Oil Tester: DEMETRIA MEASUREMENT RESULTS: Intervals: Rate: 83 MA: 156 QRSD: 84 QT: 388 QTc: 455 [place]: P: 32 MA: 156 QRS: 116 T: 27 INTERPRETIVE STATEMENTS: Normal sinus rhythm Possible Right ventricular hypertrophy Abnormal ECG Compared to ECG 03/10/2020 20:48:40 No significant changes Electronically Signed On 11-14-20 05:35:19 TITLE I MATH TUTOR by Jono Weller
== END 2020-11-13 20:02 | disposition left against medical advice (07) ==
LOC: ER 18:07
DX: R07.9 Chest pain, unspecified (principal); M54.6 Pain in thoracic spine; F41.9 Anxiety disorder, unspecified; E11.9 Type 2 diabetes mellitus without complications; Z79.4 Long term (current) use of insulin; G47.00 Insomnia, unspecified; Z86.73 Personal history of transient ischemic attack (TIA), and cerebral infarction without residual deficits; Z53.21 Procedure and treatment not carried out due to patient leaving prior to being seen by health care provider
CPT/HCPCS: 93005; 99281

== ENCOUNTER 2021-08-23 10:21 | Emergency (ER) | payer OTHER ==
[2021-08-23] MEDS ORDERED: LORazepam 2 MG/ML VIAL ONE (10:27)
--- NOTE | 2021-08-23 12:03 | ER ---
Nurse's Notes [facility] Name: Latoya Pfeiffer Age: 65 yrs Sex: Female : 1955 Arrival Date: 08/23/2021 Time: 10:22 Bed 13 Private MD: Diagnosis: Hyperventilation;Acute stress reaction Presentation: 08/23 10:15 Method Of Arrival: EMS: [facility] jh6 10:15 Coronavirus screen: At this time, unable to obtain information related to travel jh6 outside the [place] At this time, the client does not indicate any symptoms associated with coronavirus-19. Ebola Screen: No symptoms or risks identified at this time. Unable to complete the Ebola screening because: emotionally distraught. Initial Sepsis Screen: Does the patient meet any 2 criteria? No. Patient's initial sepsis screen is negative. Does the patient have a suspected source of infection? No. Patient's initial sepsis screen is negative. Risk Assessment: Do you want to hurt yourself or someone else? Patient reports no desire to harm self or others. Onset of symptoms was August 23, 2021 at 09:00. 10:15 Acuity: LUCINA 3 jh6 10:32 Chief complaint: EMS states: Pts daughter was found this am at home. unkn jh6 cause. Pt has been hysterical and hyperventilating and unable to calm down. IV to rt fa 20g started river captain and Ativan total 2mg given by ems. - Immunization history:: Adult Immunizations unknown. - Family history:: not pertinent. - Social history:: Smoking status: Patient denies any tobacco usage or history of. - Hospitalizations: : No recent hospitalization is reported. Screenin:45 Abuse screen: pt unable to answer any questions due to emotional state. Nutritional jh6 screening: No deficits noted. Tuberculosis screening: No symptoms or risk factors identified. Fall Risk Secondary diagnosis (15 points) emotional distress. Assessment: 10:37 General: Appears distressed, Behavior is agitated, anxious, crying. Pain: Denies pain. jh6 11:30 Reassessment: Patient and/or family updated on plan of care and expected duration. Pain jh6 level reassessed. Patient is alert, oriented x 3, equal unlabored respirations, skin warm/dry/pink. pt sleeping nad family at bedside. 12:12 Reassessment: Pt resting without distress, pts family at bedside. General: Appears in [facility] no apparent distress. Behavior is drowsy, quiet. Vital Signs: 10:15 BP 137 / 98; Pulse 91; Resp 26; Temp 97.6(T); Pulse Ox 99% on R/A; Weight 90.72 kg; jh6 Height 5 ft. 1 in. (154.94 cm); Pain 10/10; 11:00 BP 124 / 80; Pulse 87; Resp 15; Pulse Ox 100% on 15% Non-rebreather mask; jh6 11:30 BP 98 / 58; Pulse 78; Resp 16; Pulse Ox 100% on 15% Non-rebreather mask; jh6 12:38 BP 116 / 72; Pulse 80; Resp 18; Pulse Ox 100% on R/A; jh6 10:15 Body Mass Index 37.79 (90.72 kg, 154.94 cm) 6 ED Course: 10:22 Patient arrived in ED. ds1 10:22 Stalin Hernandez MD is Attending Physician. eb 10:25 Luz Bradford, LALI is Primary Nurse. jh6 10:34 Patient has correct armband on for positive identification. Bed in low position. Call [facility] light in reach. Side rails up X2. Adult w/ patient. Warm blanket given. restaurant crew person on. Pulse ox on. NIBP on. 10:34 Maintain EMS IV. Dressing intact. Good blood return noted. Site clean \T\ dry. 5 10:35 EKG done, by ED staff, reviewed by Stalin Hernandez MD. 5 10:37 Triage completed. 6 10:46 No provider procedures requiring assistance completed. Inserted saline lock: 20 gauge 6 in right antecubital area, using aseptic technique. 12:39 Awaiting: Pts family called for a ride home pt awake and alert. Pt was advised to be [facility] careful with home anxiety meds as we gave meds in er . Family is aware as well. 13:12 Patient none. 6 13:12 IV discontinued, intact, bleeding controlled, No redness/swelling at site. Pressure 6 dressing applied. Administered Medications: 10:30 Drug: Ativan (LORazepam) 1 mg Route: IVP; Site: right antecubital; [facility] 11:00 Follow up: Response: Anxiety decreased [facility] Outcome: 12:03 Discharge ordered by . rn 13:11 Discharged to home via wheelchair. [facility] 13:11 Condition: stable 13:11 Discharge instructions given to patient, family, Instructed on discharge instructions, Demonstrated understanding of instructions. 13:12 Patient [address] the ED[address] [facility] Signatures: ZhaoGosia ds1 Stalin Hernandez MD MD rn Martinez, Maria [facility] Milagros Wen Jennifer, RN RN 6 Corrections: (The following items were deleted from the chart) 10:47 10:46 PMHx: Anxiety; [place] [id number] 10:47 10:46 PMHx: insomnia; [place] [address] 10:47 10:46 PMHx: TIA; [place] [address] 10:47 10:46 PMHx: Diabetes - IDDM; [place] [id number]
--- NOTE | 2021-08-23 12:04 | EDPHYS ---
Physician Documentation [facility] Name: Latoya Pfeiffer Age: 65 yrs Sex: Female : 1955 Arrival Date: 08/23/2021 Time: 10:22 Bed 13 Private MD: ED Physician Stalin Hernandez HPI: 08/23 10:24 This 65 yrs old Female presents to ER via Unassigned with complaints of Panic rn Attack. 10:24 The patient presents to the emergency department with anxiety, over a , the rn patient's child. Onset: The symptoms/episode began/occurred just prior to arrival. Associated signs and symptoms: Pertinent positives; anxiety, Pertinent negatives: fever, hallucinations, homicidal ideation, substance abuse, suicide ideation. Severity of symptoms: At their worst the symptoms were severe in the emergency department the symptoms have improved. The patient has not experienced similar symptoms in the past. The patient has not recently seen a physician. EMS reports they were called out earlier for daughter of this patient and was found to be on arrival. Unknown cause of was called at the scene by their chief. Patient was found to be distracted, crying, not talking to EMS, vitals were taken and she was tachycardic and hypertensive, decision made to transfer patient for further evaluation and given 1 mg of Ativan with some improvement. Patient still crying and rambling but now she answers questions and pauses. States her heart hurts but denies any chest pain or shortness of breath. Patient has a history of anxiety and has not been taking medication due to lack of insurance or insurance problems.. - Immunization history:: Adult Immunizations unknown. - Family history:: not pertinent. - Social history:: Smoking status: Patient denies any tobacco usage or history of. - Hospitalizations: : No recent hospitalization is reported. ROS: 10:24 Constitutional: Negative for fever, chills, and weight loss, Eyes: Negative for injury, rn pain, redness, and discharge, Neck: Negative for injury, pain, and swelling, Cardiovascular: Negative for chest pain, and edema Respiratory: Negative for shortness of breath, cough, wheezing, and pleuritic chest pain, Abdomen/GI: Negative for abdominal pain, nausea, vomiting, diarrhea, and constipation, MS/Extremity: Negative for injury and deformity, Skin: Negative for injury, rash, and discoloration, Neuro: Negative for headache, weakness, numbness, tingling, and seizure. Exam: 10:24 Constitutional: This is a well developed, well nourished patient who is awake, alert, rn crying and yelling in the room Head/Face: Normocephalic, atraumatic. Eyes: Periorbital areas with no swelling, redness, or edema. Cardiovascular: Tachycardic, regular. No pulse deficits Respiratory: Hyperventilating, slows her breathing down to talk to me and with coaching Abdomen/GI: Soft, non-tender Skin: Warm, dry MS/ Extremity: Pulses equal, no cyanosis. Neuro: Awake and alert, GCS 15, oriented to person, place, time, and situation. Cranial nerves II-XII grossly intact. Motor strength 5/5 in all extremities. Sensory grossly intact 10:34 ECG was reviewed by the Attending Physician. rn Vital Signs: 10:15 BP 137 / 98; Pulse 91; Resp 26; Temp 97.6(T); Pulse Ox 99% on R/A; Weight 90.72 kg; [facility] Height 5 ft. 1 in. (154.94 cm); Pain 10/10; 11:00 BP 124 / 80; Pulse 87; Resp 15; Pulse Ox 100% on 15% Non-rebreather mask; [facility] 11:30 BP 98 / 58; Pulse 78; Resp 16; Pulse Ox 100% on 15% Non-rebreather mask; [facility] 12:38 BP 116 / 72; Pulse 80; Resp 18; Pulse Ox 100% on R/A; [facility] 10:15 Body Mass Index 37.79 (90.72 kg, 154.94 cm) [facility] MDM: 10:22 Patient medically screened. rn 12:01 Differential diagnosis: Hyperventilation, anxiety, stress reaction. Data reviewed: rn vital signs, nurses notes, EKG, and as a result, I will discharge patient. Counseling: I had a detailed discussion with the patient and/or guardian regarding: the historical points, exam findings, and any diagnostic results supporting the discharge/admit diagnosis, the need for outpatient follow up, to return to the emergency department if symptoms worsen or persist or if there are any questions or concerns that arise at home. Special discussion: I discussed with the patient/guardian in detail that at this point there is no indication for admission to the hospital. It is understood, however, that if the symptoms persist or worsen the patient needs to return immediately for re-evaluation. 12:01 ED course: Patient markedly improved, no longer crying. EKG without any ischemia. rn Stable vitals. Will DC home.. 08/23 10:23 Order name: EKG; Complete Time: 10:23 rn 08/23 10:23 Order name: EKG - Nurse/Tech; Complete Time: 10:25 rn 08/23 10:23 Order name: IV Start; Complete Time: 10:32 rn 08/23 10:23 Order name: Cardiac monitoring; Complete Time: 10:34 rn EC:34 Rate is 86 beats/min. Rhythm is regular. QRS [place] is Normal. [place] interval is normal. QRS rn interval is normal. QT interval is normal. No Q waves. T waves are Normal. No ST changes noted. Clinical impression: Normal ECG. Interpreted by me. Administered Medications: 10:30 Drug: Ativan (LORazepam) 1 mg Route: IVP; Site: right antecubital; [facility] 11:00 Follow up: Response: Anxiety decreased [facility] Disposition Summary: 08/23/21 12:03 Discharge Ordered Location: Home rn Problem: new rn Symptoms: have improved rn Condition: Stable rn Diagnosis - Hyperventilation rn - Acute stress reaction rn Followup: rn - With: Private Physician - When: As needed - Reason: Recheck today's complaints, Re-evaluation by your physician Discharge Instructions: - Discharge Summary Sheet rn - Panic Attack rn - Hyperventilation rn Forms: - Medication Reconciliation Form rn - Thank You Letter rn - Antibiotic psychology intern - Prescription Opioid Use rn Signatures: Stalin Hernandez MD MD rn Hastedt, Jennifer, RN RN [facility] Corrections: (The following items were deleted from the chart) 10:47 10:46 PMHx: Anxiety; [place] [id number] 10:47 10:46 PMHx: insomnia; [place] [address] 10:47 10:46 PMHx: TIA; [place] [address] 10:47 10:46 PMHx: Diabetes - IDDM; [place] [id number]
[2021-08-23 13:23] VITALS: O2SAT 100
[2021-08-23 13:26] VITALS: BP 116/72
== END 2021-08-23 13:12 | disposition home or self-care (01) ==
LOC: ER 10:21
DX: R06.4 Hyperventilation (principal); F43.0 Acute stress reaction
CPT/HCPCS: 93005; 96374; 99284

== ENCOUNTER 2022-02-16 17:38 | Emergency (ER) | payer OTHER ==
--- OUTSIDE RECORDS SUMMARY | 2022-02-16 17:40 | XMS REPORT | Continuity of Care Document ---
:1955 Author Organization [facility] t Address [address] [place] [address] Care Team Providers Name Role Phone SUMI Primary Care Physician Unavailable SUMI Attending Clinician Unavailable Sumi FAULKNERP Attending Clinician Maxim RN, S Attending Clinician Unavailable Payers Payer Name Policy Type Policy Number Effective Date Expiration Date [place] SWENSON [id number] 2016 00:00:00 Problems Condition Condition Condition Status Onset Resolution Last Treating Co mments Source Name Details Category Date Date Treatment Clinician Date Urinary Urinary Disease Active Univers tract tract 2-18 [place] Branch Anxiety Anxiety Disease Active Univers 2-18 ity of 00:00: [place] 00 Medical Branch Type 1 Type 1 Disease Active Univers diabetes diabetes 2-18 ity of mellitus mellitus 00:00: [place] with with 00 Medical hyperglyce hyperglyce Br anch brianna brianna Need for Need for Disease Active Unive rs hepatitis hepatitis 2-18 ity of C C 00:00: [place] screening screening 00 Medi pamela test test Branch Sleep Sleep Disease Active Univers disorder disorder 2-18 ity of 00:00: [place] 00 Medical Branch Hemorrhagi Hemorrhagi Disease Active U nivers c cystitis c cystitis 2-18 it y of 00:00: [place] 00 Medical Branch Overactive Overactive Disease Active 2022-0 U nivers bladder bladder 2-18 ity of 00:00: [place] [id number] Medical Branch Encounter Encounter Disease Active Uni vers to to 2-18 ity of establish establish 00:00: [facility] care care 00 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 to sis due to 2-04 it y of DM DM 00:00: [place] [facility] Allergies, Adverse Reactions, Alerts Allergy Allergy Status Severity Reaction(s) Onset Inactive Treating Comm ents Source Name Type Date Date Clinician NO KNOWN Drug Active [facility] ALLERGIE Class ity of S [facility] Social History Social Habit Start Date Stop Date Quantity Comments Source Exposure to Not sure [facility] SARS-CoV-2 (event) Medica l Branch Tobacco use and 2020-02-27 2020-02-27 Never used [facility] exposure 00:00:00 00:00:00 [facility] Sex [birth year] [facility] 00:00:00 00:00:00 [facility] Smoking Status Start Date Stop Date Source Never smoker [facility] Medications Ordered Filled Start Stop Current Ordering Indication Dosage Frequency Signature Comments Components Source Medication Medication Date Date Medication? Clinician (SIG) Name Name citalopram Yes 40mg Take 40 mg U nivers (CELEXA) 40 2-18 by mouth ity of mg tablet 16:28: daily. [address] zolpidem Yes 5mg Take 5 mg Univ ers (AMBIEN) 5 2-18 by mouth ity o f mg tablet 16:28: at bedtime [place] [id number] as needed Medical for [place] Insomnia. metFORMIN Yes 500mg Take 500 Uni vers (GLUCOPHAGE 2-18 mg by ity of ) 500 mg 16:28: mouth 2 [place] tablet 46 (two) Medical times [place] daily with meals. INSULN ASP Yes inject Unive rs PRT/INSULIN 2-18 under the ity of ASPART 16:28: skin. [place] (NOVOLOG 46 Medical MIX 70-30 Branch SC) atorvastati 2021- No [id number] 40mg Take 1 Univers n 40 mg 2-18 - 9101 tablet by ity of tablet 00:00: 04:59 mouth at [place] 00 :00 bedtime Medical for 90 Branch days. lisinopriL 2021- No [id number] 5mg Take 1 Univers 5 mg tablet 2-18 - 9101 tablet by it y of 00:00: 04:59 mouth [place] 00 :00 daily for Medical 90 days. Branch hydrOXYzine 2021- No [id number] 25mg Take 1 Univers 25 mg 2-18 -20 tablet by ity of tablet 00:00: 04:59 mouth [place] 00 :00 every 6 Medical (six) Branch hours as needed for Itching (can take 2 before bed for insomnia) for up to 60 days. Nitrofurant 2021- No [id number] 100mg Take 1 Univers oin&Nit. 2-18 02-24 capsule by ity of Macrocryst 00:00: 05:59 mouth [place] (MACROBID) 00 :00 every 12 Medic al 100 mg (twelve) Branch capsule hours for 5 days. traMADOL 50 Yes [id number] 50mg Take 1 Univers mg tablet 5-28 tablet by ity o f 00:00: mouth [place] 00 every 6 Medical (six) Branch hours as needed for Pain (scale 4-6). ondansetron 2021- No 8mg Take 1 Uni vers (ZOFRAN 6-19 02-18 tablet by ity of ODT) 8 mg 00:00: 00:00 mouth [place] disintegrat 00 :00 every 8 Medic al ing tablet (eight) Branch hours as needed for Nausea and Vomiting (N/V). ondansetron 2015-09 Yes 4mg Take 1 Univ ers (ZOFRAN) 4 2-07 tablet by ity of mg tablet 00:00: mouth [place] 00 every 8 Medical (eight) Branch hours as needed for Nausea and Vomiting (N/V). phenazopyri 2015-09 Yes 200mg Take 1 Uni vers dine 2-01 tablet by ity of (PYRIDIUM) 00:00: [place] 3 [place] 200 mg 00 (three) Medical tablet times [place] daily. ciprofloxac 2015-09 500mg Take 1 Un nhi in HCl 10-21 tablet by ity of (CIPRO) 500 00:00: 00:00 mouth 2 [place] mg tablet 00 :00 (two) Medical times [place] daily. Immunizations Ordered Filled Immunization Date Status Comments Sour e Immunization Name Name Influenza Virus 2016-08-26 Completed [facility] y of Vaccine Quad IM 3+ 00:00:00 [facility] Pneumococcal 2016-08-26 Completed [place] o f Polysaccharide, 00:00:00 [facility] ical PPSV23 (PNEUMOVAX) [place] Vital Signs Vital Name Observation Time Observation Value Comments Source Body temperature 2021-11-07 14:28:00 36.72 Graciela [facility] Body height 2021-11-07 14:28:00 152.4 cm [facility] Body weight 2021-11-07 14:28:00 84.369 kg [facility] BMI 2021-11-07 14:28:00 36.33 kg/m2 [facility] Oxygen saturation in 2021-11-07 14:28:00 97 /min [facility] Arterial blood by [facility] Pulse oximetry Branch Systolic blood 2021-11-07 14:28:00 149 mm[facility]Hg[facility] Diastolic blood 2021-11-07 14:28:00 80 mm[Hg] [facility] Heart rate 2021-11-07 14:28:00 70 /min [facility] Procedures Procedure Date / Time Performed Performing Clinician Sour e POCT URINALYSIS 2021-11-07 14:38:00 Jenn Jonas o f [facility] Encounters Start End Encounter Admission Attending Care Care Encounter Source Date/Time Date/Time Type Type Clinicians Facility Department ID 2021-12-05 2021-12-05 Outpatient Royce JONAS [facility] [id number] Univers 09:30:00 09:30:00 JENN oleary [facility] 2021-11-07 2021-11-07 Outpatient R SUMI [facility] [id number] Univers 08:00:00 09:31:42 JENN oleary of [facility] 2021-11-07 2021-11-07 Office JENNIFER Jonas [id number] Univers 08:00:00 09:31:42 Visit Jenn MANN [id number] it y of [place] [id number] Nathan as LUANA?BLEA [phone] [place] MANUEL [address] [place] [address] MEDICAL OFFICE BUILDING 2020-02-29 2020-02-29 Telephone AJAY Pan [id number] 00:00:00 00:00:00 Jaimie IRIZARRY [id number] [facility] [id number] 2019-02-14 2019-02-14 Outpatient MHSE [id number] 08:54:00 08:54:00 [facility] Results Test Description Test Time Test Comments Results Result Comments Source POCT URINALYSIS W SPECIFIC GRAVITY 2021-11-07 14:40:00 Test Item Value Reference Range Interpretation Comme nts POCT U SP GRAV (test code = 3255) 1.010 mg/dl 1.005-1.025 POCT PH U (test code = 3254) 7 mg/dl 5-8 POCT U LEUK EST (test code = 3263) ++ Negative - Negative POCT U NIT (test code = 3262) positive Negative - Negative POCT U PROT (test code = 3259) trace Negative - Negative POCT U GLU (test code = 3256) Negative - Negative POCT U KETONE (test code = 3258) negative Negative - Negative POCT U UROBILI (test code = 3260) normal 0.2-1 POCT U BILI (test code = 3261) negative Negative - Negative POCT U BLD (test code = 3257) Negative - Negative POCT U COLOR (test code = 3266) dark yellow POCT U APPEAR (test code = 3267) cloudy Lab Interpretation (test code = 57091-6) Abnormal [facility] [place] [facility]
--- NOTE | 2022-02-16 18:59 | ER ---
Nurse's Notes [facility] Name: Latoya Pfeiffer Age: 66 yrs Sex: Female : 1955 Arrival Date: 02/16/2022 Time: 17:39 Bed 12 Private MD: Hubert Fernández Diagnosis: Sciatica, right side Presentation: 02/16 17:47 Chief complaint: Patient states: I have sciatic nerve pain and it is flaring up and has jb4 been since wednesday. Coronavirus screen: At this time, the client does not indicate any symptoms associated with coronavirus-19. Ebola Screen: No symptoms or risks identified at this time. Initial Sepsis Screen: Does the patient meet any 2 criteria? No. Patient's initial sepsis screen is negative. Does the patient have a suspected source of infection? No. Patient's initial sepsis screen is negative. Risk Assessment: Do you want to hurt yourself or someone else? Patient reports no desire to harm self or others. Onset of symptoms was February 16, 2022. Transition of care: patient was not received from another setting of care. 17:47 Method Of Arrival: Wheelchair jb4 17:47 Acuity: LUCINA 4 jb4 Historical: - Allergies: 17:48 No Known Allergies; jb4 - PMHx: 17:48 Sciatic nerve pain; jb4 - PSHx: 17:48 Cholecystectomy; Appendectomy; hysterectomy; jb4 - Immunization history:: Adult Immunizations up to date. - Social history:: Smoking status: Patient denies any tobacco usage or history of. Assessment: 19:18 Reassessment: Patient appears in no apparent distress at this time. Patient and/or iw family updated on plan of care and expected duration. Pain level reassessed. Patient is alert, oriented x 3, equal unlabored respirations, skin warm/dry/pink. Patient states feeling better. Patient states symptoms have improved. Vital Signs: 17:47 BP 140 / 79; Pulse 90; Resp 16; Temp 98.8(TE); Pulse Ox 96% ; Weight 83.46 kg (R); jb4 Height 5 ft. 0 in. (152.40 cm); Pain 10/10; 17:47 Body Mass Index 35.93 (83.46 kg, 152.40 cm) jb4 ED Course: 17:39 Patient arrived in ED. as 17:40 Hubert Frenández MD is Private Physician. as 17:48 Triage completed. jb4 17:48 Arm band placed on right wrist. jb4 17:50 Eriberto Clay DO is Attending Physician. ms3 18:39 Di Bills, RN is Primary Nurse. iw 18:58 Hubert Fernández MD is Referral Physician. ms3 19:18 No provider procedures requiring assistance completed. Patient did not have IV access iw during this emergency room visit. Administered Medications: 18:48 Drug: HYDROcodone-acetaminophen 5 mg-325 mg 1 tabs Route: PO; iw 18:48 Drug: Valium (diazepam) 5 mg Route: PO; iw Outcome: 18:58 Discharge ordered by MD. ms3 19:19 Discharged to home via wheelchair, with family. iw 19:19 Condition: good 19:19 Discharge instructions given to patient, Instructed on discharge instructions, follow up and referral plans. medication usage, Demonstrated understanding of instructions, follow-up care, medications, Prescriptions given X 1. 19:19 Patient left the ED. iw Signatures: Aviva Torrez as Di Bills, RN RN iw Fernando Golden RN RN jb4 Eriberto Clay DO DO ms3
--- NOTE | 2022-02-16 18:59 | EDPHYS ---
Physician Documentation [facility] Name: Latoya Pfeiffer Age: 66 yrs Sex: Female : 1955 Arrival Date: 02/16/2022 Time: 17:39 Bed 12 Private MD: Hubert Fernández ED Physician Erbierto Clay HPI: 02/16 18:47 This 66 yrs old Female presents to ER via Wheelchair with complaints of ms3 sciatica. 18:47 The patient presents with pain that is acute, with no known mechanism of injury. The ms3 symptoms are located in the low back. Onset: The symptoms/episode began/occurred acutely, 3 day(s) ago. The pain radiates to the Right leg. Associated signs and symptoms: Pertinent negatives: abdominal pain, chest pain. The problem was sustained without known cause. Modifying factors: The patient symptoms are alleviated by nothing, the patient symptoms are aggravated by bending, movement. Historical: - Allergies: 17:48 No Known Allergies; jb4 - PMHx: 17:48 Sciatic nerve pain; jb4 - PSHx: 17:48 Cholecystectomy; Appendectomy; hysterectomy; jb4 - Immunization history:: Adult Immunizations up to date. - Social history:: Smoking status: Patient denies any tobacco usage or history of. ROS: 18:47 Constitutional: Negative for fever, and chills. Neck: Negative for injury, pain, and ms3 swelling, Cardiovascular: Negative for chest pain, and palpitations. Respiratory: Negative for shortness of breath, cough, wheezing, and pleuritic chest pain, Abdomen/GI: Negative for abdominal pain, nausea, vomiting, diarrhea, and constipation, MS/Extremity: Negative for injury and deformity. 18:47 Back: Positive for pain with movement, radiated pain. 18:47 All other systems are negative. Exam: 18:47 Constitutional: This is a well developed, well nourished patient who is awake, alert, ms3 and in no acute distress. Eyes: Pupils equal round and reactive to light, extra-ocular motions intact. Lids and lashes normal. Conjunctiva and sclera are non-icteric and not injected. Periorbital areas with no swelling, redness, or edema. ENT: Nares patent. No nasal discharge, no septal abnormalities noted. Tympanic membranes are normal and external auditory canals are clear. Oropharynx with no redness, swelling, or masses, exudates, or evidence of obstruction, uvula midline. Mucous membranes moist. Neck: Trachea midline, no cervical lymphadenopathy. Supple, full range of motion without nuchal rigidity, or vertebral point tenderness. No Meningismus. Chest/axilla: Normal chest wall appearance and motion. Nontender with no deformity. Cardiovascular: Regular rate and rhythm with a normal S1 and S2. No gallops, murmurs, or rubs. Normal PMI, no JVD. No pulse deficits. Respiratory: Lungs have equal breath sounds bilaterally, clear to auscultation and percussion. No rales, rhonchi or wheezes noted. No increased work of breathing, no retractions or nasal flaring. Abdomen/GI: Soft, non-tender, with normal bowel sounds. No distension or tympany. No guarding or rebound. No evidence of tenderness throughout. 18:47 Back: pain, that is moderate, ROM is painful, vertebral tenderness, is not appreciated, muscle spasm, is appreciated in the right low back. Vital Signs: 17:47 BP 140 / 79; Pulse 90; Resp 16; Temp 98.8(TE); Pulse Ox 96% ; Weight 83.46 kg (R); jb4 Height 5 ft. 0 in. (152.40 cm); Pain 10/10; 17:47 Body Mass Index 35.93 (83.46 kg, 152.40 cm) jb4 MDM: 18:22 Patient medically screened. ms3 18:47 Differential diagnosis: chronic back pain, Sciatica. ms3 18:58 Data reviewed: vital signs, nurses notes. Data interpreted: Pulse oximetry: on room air ms3 is 96 %. Interpretation: normal. Counseling: I had a detailed discussion with the patient and/or guardian regarding: the historical points, exam findings, and any diagnostic results supporting the discharge/admit diagnosis, the need for outpatient follow up, to return to the emergency department if symptoms worsen or persist or if there are any questions or concerns that arise at home. ED course: Discussed PE findings with patient. Patient to follow up with her PMD in 2-3 days. Patient understands/ agrees with plan. All questions answered. Return precautions given to include worsening symptoms, or any other concerns. Patient is improved, in NAD, non-toxic appearing, speaking full sentences, without bowel/ bladder incontinence, numbness, or weakness.. Administered Medications: 18:48 Drug: HYDROcodone-acetaminophen 5 mg-325 mg 1 tabs Route: PO; iw 18:48 Drug: Valium (diazepam) 5 mg Route: PO; iw Disposition Summary: 02/16/22 18:58 Discharge Ordered Location: Home ms3 Problem: an ongoing problem ms3 Symptoms: are unchanged ms3 Condition: Stable ms3 Diagnosis - Sciatica, right side ms3 Followup: ms3 - With: Hubert Fernández MD - When: 2 - 3 days - Reason: Re-evaluation by your physician Discharge Instructions: - Discharge Summary Sheet ms3 - Sciatica ms3 Forms: - Medication Reconciliation Form ms3 - Thank You Letter ms3 - Antibiotic Education ms3 - Prescription Opioid Use ms3 Prescriptions: - Cyclobenzaprine 5 mg Oral Tablet - take 1 tablet by ORAL route 3 times per day As needed; 15 tablet; Refills: 0, ms3 Product Selection Permitted Signatures: Di Bills RN RN iw Fernando Golden RN RN jb4 Eriberto Clay DO DO ms3
[2022-02-16 19:28] VITALS: BP 140/79; TEMP 98.8; O2SAT 96
== END 2022-02-16 19:19 | disposition home or self-care (01) ==
LOC: ER 17:38
DX: M54.31 Sciatica, right side (principal)
CPT/HCPCS: 99283

== ENCOUNTER 2022-05-28 11:27 | Emergency (ER) | payer OTHER ==
--- OUTSIDE RECORDS SUMMARY | 2022-05-28 11:31 | XMS REPORT | Continuity of Care Document ---
:1955 Author Organization [facility] t Address [address] [place] [address] Care Team Providers Name Role Phone JENN JONAS Primary Care Physician Unavailable JENN JONAS Attending Clinician Unavailable Jenn Fuller Attending Clinician Maxim ESCALERA, Jaimie Holland Attending Clinician Unavailable Sheri Bee Attending Clinician Emelia Padilla Attending Clinician Payers Payer Name Policy Type Policy Number Effective Date Expiration Date [place] GROVES [id number] 2016 00:00:00 Problems Condition Condition Condition Status Onset Resolution Last Treating Co mments Source Name Details Category Date Date Treatment Clinician Date Urinary Urinary Disease Active Univers tract tract 2-18 ity of infection infection 00:00: Nathana s symptoms symptoms 00 Medica l Branch Anxiety Anxiety Disease Active Univers 2-18 ity of 00:00: [place] 00 Medical Branch Type 1 Type 1 Disease Active Univers diabetes diabetes 2-18 ity of mellitus mellitus 00:00: [place] with with 00 Medical hyperglyce hyperglyce Br [...] c cystitis 2-18 it y of 00:00: [place] [facility] Overactive Overactive Disease Active U nivers bladder bladder 2-18 ity of 00:00: [place] [facility] Encounter Encounter Disease Active Uni vers to to 2-18 ity of establish establish 00:00: Sammy holland care care 00 Medical Branch 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:00: Sammy s major major 00 Medical depressive depressive Br anch disorder, disorder, 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 features features K21.0 K21.0 Diagnosis Active 2019-02-14 Mem oria GASTRO-ESO GASTRO-ESO 02-03 09:02:00 l PHAGEAL PHAGEAL 00:00: [place] REFLUX REFLUX 00 DISEASE W DISEASE W Active 02/03/2019 [place] M54.5 - M54.5 - Diagnosis Active 2016-12-10 Memoria LOW BACK LOW BACK 12-10 13:11:00 l PAIN PAIN 00:01: [place] Active 00 12/10/2016 [place] Obesity Obesity Disease Active 2015-09 Univers (BMI (BMI 2-04 ity of 30-39.9) 30-39.9) 00:00: [place] [facility] Branch 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 to sis due to 2-04 it y of DM DM 00:00: [place] [facility] Allergies, Adverse Reactions, Alerts Allergy Allergy Status Severity Reaction(s) Onset Inactive Treating Comm ents Source Name Type Date Date Clinician NO KNOWN Drug Active Univers ALLERGIE Class ity of S [facility] Social History Social Habit Start Date Stop Date Quantity Comments Source Exposure to Not sure [facility] SARS-CoV-2 (event) Medica l [place] Tobacco use and 2020-02-27 2020-02-27 Never used [facility] exposure 00:00:00 00:00:00 [facility] Branch Sex Ass[birth year] [facility] 00:00:00 00:00:00 Medical [place] Smoking Status Start Date Stop Date Source Never smoker [facility] Medications Ordered Filled Start Stop Current Ordering Indication Dosage Frequency Signature Comments Components Source Medication Medication Date Date Medication? Clinician (SIG) Name Name citalopram Yes 40mg Take 40 mg U nivers (CELEXA) 40 2-18 by mouth ity of mg tablet 16:28: daily. [place] 46 Medical Branch zolpidem Yes 5mg Take 5 mg Univ ers (AMBIEN) 5 2-18 by mouth ity o f mg tablet 16:28: at bedtime [place] 46 as needed Medical for Branch Insomnia. metFORMIN Yes 500mg Take 500 Uni vers (GLUCOPHAGE 2-18 mg by ity of ) 500 mg 16:28: mouth 2 [place] tablet 46 (two) Medical times Branch daily with meals. INSULN ASP Yes inject Unive rs PRT/INSULIN 2-18 under the ity of ASPART 16:28: skin. [place] (NOVOLOG 46 Medical MIX 70-30 Branch SC) atorvastati 2021- No [id number] 40mg Take 1 Univers n 40 mg 2-18 05-20 9101 tablet by ity of tablet 00:00: 04:59 mouth at [place] 00 :00 bedtime Medical for 90 Branch days. lisinopriL 2021- No [id number] 5mg Take 1 Univers 5 mg tablet 2-18 05-20 9101 tablet by it y of 00:00: 04:59 mouth [place] 00 :00 daily for Medical 90 days. Branch hydrOXYzine 2021- No [id number] 25mg Take 1 Univers 25 mg 2-18 04-20 tablet by ity of tablet 00:00: 04:59 mouth [place] 00 :00 every 6 Medical (six) Branch hours as needed for Itching (can take 2 before bed for insomnia) for up to 60 days. Nitrofurant 2021- No [id number] 100mg Take 1 Univers oin&Nit. 2-18 02-24 capsule by ity of Macrocryst 00:00: 05:59 mouth [place] (MACROBID) 00 :00 every 12 Medic al 100 mg (twelve) Branch capsule hours for 5 days. traMADOL 50 2018-0 Yes [id number] 50mg Take 1 Univers mg tablet 5-28 tablet by ity o f 00:00: mouth [place] 00 every 6 Medical (six) Branch hours as needed for Pain (scale 4-6). ondansetron 2021- No 8mg Take 1 Uni vers (ZOFRAN 6-19 11-07 tablet by ity of ODT) 8 mg [...] Yes 200mg Take 1 Uni vers dine 2- tablet by ity of (PYRIDIUM) 00:00: [place] 3 [place] 200 mg 00 (three) Medical tablet times Branch daily. ciprofloxac 2015-09 No 500mg Take 1 Un nhi in HCl 10-21 tablet by ity of (CIPRO) 500 00:00: 00:00 mouth 2 [place] mg tablet 00 :00 (two) Medical times Branch daily. Immunizations Ordered Filled Immunization Date Status Comments [facility] e Immunization Name Name Influenza Virus 2016-08-[address] [facility] Quad IM 3+ 00:00:00 [facility] Branch Pneumococcal 2016-08-26 Completed [place] o f Polysaccharide, 00:00:00 [facility] ical PPSV23 (PNEUMOVAX) [place] Vital Signs Vital Name Observation Time Observation Value Comments Source Body temperature 2021-11-07 14:28:00 36.72 [facility] Body height 2021-11-07 14:28:00 152.4 cm [facility] Body weight 2021-11-07 14:28:00 84.369 kg [facility] BMI 2021-11-07 14:28:00 36.33 kg/m2 [facility] Oxygen saturation in 2021-11-07 14:28:00 97 /min [facility] Arterial blood by [facility] Pulse oximetry Branch Systolic blood 2021-11-07 14:28:00 149 mm[Hg] [facility] sity of pressure [facility] Diastolic blood 2021-11-07 14:28:00 80 mm[Hg] Unive rsity of pressure [facility] Heart rate 2021-11-07 14:28:00 70 /min Universi ty [facility] Procedures Procedure Date / Time Performed Performing Clinician Sourc e POCT URINALYSIS 2021-11-07 14:38:00 Jenn Jonas o f [facility] Encounters Start End Encounter Admission Attending Care Care Encounter Source Date/Time Date/Time Type Type Clinicians Facility Department ID 2021-12-05 2021-12-05 Outpatient R SUMI [facility] [id number] Univers 09:30:00 09:30:00 JENN oleary [facility] 2021-11-07 2021-11-07 Outpatient R SUMI [facility] [id number] Univers 08:00:00 09:31:42 JENN oleary [facility] 2021-11-07 2021-11-07 Office Sumi [facility] [id number] Univers 08:00:00 09:31:42 Visit [facility] [id number] it y of [place] [id number] Nathan as LUANA?BLEA [id number] [address] MEDICAL OFFICE BUILDING 2020-02-29 2020-02-29 Telephone AJAY Pan [id number] 00:00:00 00:00:00 Jaimieadriel ROBINY [id number] [facility] [id number] 2019-02-14 2019-02-15 Outpatient nullFlavo [facility] [id number] Memoria 13:54:00 04:59:00 [place] 01 l [facility] 2019-02-14 2019-02-14 Outpatient Constant[place] [facility] [id number] 08:54:00 23:59:00 Sheri benavides 2019-02-14 2019-02-14 Outpatient MHSE MHSE [id number] MH 08:54:00 08:54:00 Amber [facility]el [facility] 2016-12-10 2016-12-11 Outpt Diag nullFlavo [facility] [id number] Memoria 18:02:00 04:59:00 Services r Outpatient 00 l [facility] Germain Gipson 2016-12-10 2016-12-10 Outpatient Emelia Padilla OIP [facility] [id number] 13:02:00 23:59:00 00 Results Test Description Test Time Test Comments [...] 3267) cloudy Lab Interpretation (test code = 87918-0) Abnormal [facility]
[2022-05-28] MEDS ORDERED: MECLIZINE HCL 12.5 MG TAB ONE (12:07)
[2022-05-28] MEDS ORDERED: NA CHLORIDE 0.9% 1,000 ML ONE ×2 (12:07→14:24)
[2022-05-28 12:11] LABS: Absolute Lymphocytes (CBC) 1.1 K/uL (0.7-4.9); Hematocrit 41.2 % (36.0-45.0); Lymphocytes % 19.3 % (15.3-44.8); MCV 87.5 fL (80-100); MPV 10.5 fL (7.6-11.3); RBC Red Blood Cell Count 4.71 M/uL (3.86-4.86)
[2022-05-28 12:34] LABS: Albumin 3.1 g/dL (3.4-5.0); Bilirubin Direct 0.2 mg/dL (0-0.2); Bilirubin Total 0.5 mg/dL (0.2-1.0); Magnesium 1.8 mg/dL (1.8-2.4); Protein, Total 6.8 g/dL (6.4-8.2); Troponin High Sensitivity 7.2 pg/mL (<58.9)
[2022-05-28 12:39] LABS: Urine Blood Trace-intact (Negative); Urine Glucose 3+ (Negative); Urine Protein Negative (Negative); Urine Specific Gravity 1.015 (1.005-1.030); Urine pH 5.5 (5.0-7.0)
--- NOTE | 2022-05-28 12:41 | RAD REPORT ---
EXAM DESCRIPTION: RAD - Chest Single View - 05/28/2022 12:27 pm CLINICAL HISTORY: cough, weakness COMPARISON: Portable 08/11/2020 TECHNIQUE: AP portable chest image was obtained 05/28/2022 12:27 pm . FINDINGS: No focal mass or infiltrate. No significant failure or volume overload. Interstitial patte rn is similar to comparison. Heart size is normal range and decreased from prior imaging. Bilateral pericardial fat pads are note d. No hilar mass or lymphadenopathy seen. No measurable pleural effusion and no pneumothorax. No acute bony abnormality seen. No acute aortic findings suspected. IMPRESSION: No acute cardiopulmonary process. No worrisome change from prior imaging.
--- NOTE | 2022-05-28 13:18 | RAD REPORT ---
EXAM DESCRIPTION: CT - Head Brain Wo Cont - 05/28/2022 12:39 pm CLINICAL HISTORY: weakness, dizziness COMPARISON: HEAD BRAIN W O CONTRAST dated 09/11/2013 TECHNIQUE: Axial 5 mm thick images of the head were obtained without IV contrast. All CT scans are performed using dose optimization technique as appropriate and may include automated exposure control or mA/KV adjustment according to patient size. FINDINGS: No intracranial hemorrhage, mass, edema or shift of mid-line structures. No acute infarcti on changes seen. No abnormal extra-axial fluid collections. Ventricles are normal. No significant atr ophy or chronic ischemic change. Intracranial findings are not clearly different from comparison. Mastoid air cells and visualized portions of the paranasal sinuses are clear. No acute bony findings. IMPRESSION: Negative non-contrast CT head examination for acute or significant finding.
--- NOTE | 2022-05-28 13:43 | RAD REPORT ---
EXAM DESCRIPTION: CT - Neck Angio - 05/28/2022 1:35 pm CLINICAL HISTORY: dizziness TECHNIQUE: During dynamic enhancement using nonionic IV contrast, axial 2 mm thick images of the nec k were obtained. Sagittal and axial reconstruction images were generated using MIP technique and revi ewed. All CT scans are performed using dose optimization technique as appropriate and may include automated exposure control or mA/KV adjustment according to patient size. COMPARISON: CT head same date FINDINGS: No aneurysm or vascular malformation identified. No carotid or vertebral dissection. No aortic arch or great vessel origin abnormality seen. Patient has normal variant bovine configurati on. Vertebral artery origins unremarkable as well. No stenosis, vasculitis or other significant carot id artery finding. Patient has tortuosity of the left internal carotid artery which takes an aberrant course to the posterior left pharyngeal soft tissues. No focal abnormality of either vertebral arter y. Basilar artery is normal. IMPRESSION: Negative CT angio neck examination for acute or significant finding.
--- NOTE | 2022-05-28 13:44 | RAD REPORT ---
EXAM DESCRIPTION: CT - Head angio - 05/28/2022 1:32 pm CLINICAL HISTORY: dizziness TECHNIQUE: During dynamic enhancement using nonionic IV contrast, axial 1 millimeter thick images of the head were obtained. Sagittal and axial reconstruction images were generated using MIP technique and reviewed. All CT scans are performed using dose optimization technique as appropriate and may include automated exposure control or mA/KV adjustment according to patient size. COMPARISON: CT head same date FINDINGS: No aneurysm or vascular malformation identified. Major venous sinuses are patent. No stenosis, named branch occlusion, vasculitis or other significant vascular finding identifiable. IMPRESSION: Negative CT angio head examination for acute or significant finding.
[2022-05-28] MEDS ORDERED: INSULIN -REGULAR HUMAN 50 UNIT/0.5 ML ML ONE (14:24)
[2022-05-28] MEDS ORDERED: DIAZEPAM 10 MG/2 ML INJ SYRINGE ONE (14:31)
[2022-05-28] MEDS ORDERED: dexAMETHasone 10 MG/ML VIAL ONE (15:41)
--- NOTE | 2022-05-28 18:09 | RAD REPORT ---
EXAM DESCRIPTION: MRI - Brain Wo Cont - 05/28/2022 5:51 pm CLINICAL HISTORY: dizziness COMPARISON: MR STROKE PROTOCOL dated 10/23/2010; Head Brain Wo Cont dated 05/28/2022 TECHNIQUE: Sagittal T1-weighted images were obtained along with axial PD, heavily T2-weighted and T2 -FLAIR images. Axial DWI and ADC mapping sequences were also obtained along with coronal heavily T2-w eighted images. FINDINGS: No intracranial hemorrhage, mass or acute infarction. There is no edema or shift of midlin e structures. No extra-axial fluid collections. No significant atrophy or chronic ischemic changes se en. Incidental choroid plexus cysts noted. Spears-matter/white matter junction is preserved. Signal voi ds are seen as a normal finding in the major intracranial vessels. No globe or orbital content abnormality. No sella or supra sella abnormality. Mastoid air cells and paranasal sinuses are clear. IMPRESSION: No acute infarction. No acute intracranial finding. No significant change from prior imaging.
--- NOTE | 2022-05-28 18:16 | EDPHYS ---
Physician Documentation [facility] Name: Latoya Pfeiffer Age: 66 yrs Sex: Female : 1955 Arrival Date: 05/28/2022 Time: 11:41 Bed 5 Private MD: ED Physician Eriberto Clay HPI: 05/28 11:47 This 66 yrs old Female presents to ER via EMS with complaints of General jmm Weakness. 11:47 The patient presents with feeling off balance. Onset: The symptoms/episode jmm began/occurred gradually, 3 day(s) ago. Modifying factors: The symptoms are alleviated by nothing, the symptoms are aggravated by movement of head. Associated signs and symptoms: Pertinent positives: headache, Pertinent negatives: abdominal pain. The patient has experienced a previous episode. This is a 66-year-old female with a history of hypertension, diabetes mellitus the presents emerged part with complaints of weakness beginning approximately 3 days ago with difficulty walking. Patient states she recently began an antibiotic for UTI. Denies fever but states having some chills. Patient states her blood glucoses normally around 200. Patient did not take her medication today.. Historical: - Allergies: 11:44 No Known Drug Allergies; ph - PMHx: 11:44 SCIATIC NERVE PAIN; Hypertensive disorder; Diabetes mellitus; ph - PSHx: 11:44 Appendectomy; Cholecystectomy; hysterectomy; ph - Immunization history:: Adult Immunizations not immunized. - Social history:: Smoking status: Patient denies any tobacco usage or history of. ROS: 11:47 Constitutional: Negative for fever, chills, and weight loss, Cardiovascular: Negative jmm for chest pain, palpitations, and edema, Respiratory: Negative for shortness of breath, cough, wheezing, and pleuritic chest pain. 11:47 Neuro: Positive for dizziness. 11:47 All other systems are negative. Exam: 11:47 Constitutional: This is a well developed, well nourished patient who is awake, alert, jmm and in no acute distress. Head/Face: atraumatic. Eyes: EOMI, no conjunctival erythema appreciated ENT: Moist Mucus Membranes Neck: Trachea midline, Supple Chest/axilla: Normal chest wall appearance and motion. Cardiovascular: Regular rate and rhythm. No edema appreciated Respiratory: Normal respirations, no respiratory distress appreciated Abdomen/GI: Non distended Back: Normal ROM Skin: General appearance color normal MS/ Extremity: Moves all extremities, no obvious deformities appreciated, no edema noted to the lower extremities Neuro: Awake and alert Psych: Behavior is normal, Mood is normal, Patient is cooperative and pleasant 15:45 ECG was reviewed by the Attending Physician. [facility] Vital Signs: 11:41 BP 149 / 87; Pulse 87; Resp 18; Temp 98.0; Pulse Ox 96% on R/A; Weight 84.37 kg; Height ph 5 ft. 0 in. (152.40 cm); 13:00 BP 170 / 99; Pulse 80; Resp 18; Pulse Ox 97% on R/A; ph 14:00 BP 160 / 95; Pulse 70; Resp 18; Pulse Ox 96% on R/A; ph 14:50 BP 155 / 96; Pulse 70; Resp 18; Pulse Ox 95% on R/A; ph 16:30 BP 149 / 87; Pulse 66; Resp 16; Pulse Ox 99% on 3 lpm NC; ph 18:00 BP 142 / 78; Pulse 65; Resp 18; Temp 97.9; Pulse Ox 98% on R/A; ph 11:41 Body Mass Index 36.33 (84.37 kg, 152.40 cm) ph MDM: 11:47 Patient medically screened. [facility] 18:14 Data reviewed: vital signs, nurses notes. Counseling: I had a detailed discussion with [facility] the patient and/or guardian regarding: the historical points, exam findings, and any diagnostic results supporting the discharge/admit diagnosis, lab results, radiology results, the need for outpatient follow up, to return to the emergency department if symptoms worsen or persist or if there are any questions or concerns that arise at home. 18:14 ED course: Patient states feeling much better after IV Valium. Imaging studies did not [facility] reveal any signs of VBI or CVA. Due to the patient's dizziness patient is advised to follow-up with neuro for further evaluation otherwise given strict return precautions. Patient understood and agrees to plan of care.. 05/28 11:48 Order name: Basic Metabolic Panel; Complete Time: 12:44 [facility] 05/28 11:48 Order name: CBC with Diff; Complete Time: 12:12 [facility] 05/28 11:48 Order name: LFT's; Complete Time: 12:44 [facility] 05/28 11:48 Order name: Magnesium; Complete Time: 12:44 [facility] 05/28 11:48 Order name: NT PRO-BNP; Complete Time: 12:44 [facility] 05/28 11:48 Order name: PT-INR; Complete Time: 12:44 [facility] 05/28 11:48 Order name: Troponin HS; Complete Time: 12:44 [facility] 05/28 11:48 Order name: XRAY Chest (1 view); Complete Time: 12:44 [facility] 05/28 11:49 Order name: CT Head Brain wo Cont; Complete Time: 13:20 [facility] 05/28 11:49 Order name: SARS-COV-2 RT PCR (Document "Date of Onset" if Symptomatic); Complete Time: [facility] 12:49 05/28 12:39 Order name: Urine Dipstick-Ancillary; Complete Time: 12:44 [facility] 05/28 13:13 Order name: CT Head Angio; Complete Time: 14:01 [facility] 05/28 13:13 Order name: CT Neck Angio; Complete Time: 14:01 [facility] 05/28 15:25 Order name: Brain Wo Cont MRI; Complete Time: 18:12 [facility] 05/28 11:48 Order name: EKG; Complete Time: 11:49 [facility] 05/28 11:48 Order name: Cardiac monitoring; Complete Time: 13:11 [facility] 05/28 11:48 Order name: EKG - Nurse/Tech; Complete Time: 13:11 [facility] 05/28 11:48 Order name: IV Saline Lock; Complete Time: 11:49 [facility] 05/28 11:48 Order name: Labs collected and sent; Complete Time: 13:11 [facility] 05/28 11:48 Order name: O2 Per Protocol; Complete Time: 11:49 [facility] 05/28 11:48 Order name: O2 Sat Monitoring; Complete Time: 11:49 [facility] 05/28 11:49 Order name: Urine Dipstick-Ancillary (obtain specimen); Complete Time: 13:39 [facility] 05/28 15:11 Order name: Misc. Order: ambulate; Complete Time: 15:26 jm EC:45 Rate is 75 beats/min. Rhythm is regular. QRS [place] is Normal. MA interval is normal. QRS jmm interval is normal. QT interval is normal. T waves are Normal. No ST changes noted. Reviewed by me. Administered Medications: 12:00 Drug: Meclizine 25 mg Route: PO; ph 14:49 Follow up: Response: No adverse reaction; No change in condition ph 13:10 Drug: NS 0.9% 1000 ml Route: IV; Rate: 1 bolus; Site: right antecubital; ph 18:24 Follow up: Response: No adverse reaction; IV Status: Completed infusion; IV Intake: ph 1000ml 14:23 Drug: Insulin Regular Human 10 units {Co-Signature: aa5 (Krys Carson RN).} Route: ph IVP; Site: right antecubital; 18:24 Follow up: Response: No adverse reaction ph 14:49 Drug: Valium (diazepam) 2 mg Route: IVP; Site: right antecubital; ph 18:24 Follow up: Response: No adverse reaction ph 15:54 Drug: Valium (diazepam) 5 mg Route: IVP; Site: left antecubital; ph 18:24 Follow up: Response: No adverse reaction ph 15:55 Not Given (hyperglycemiaa): Decadron - Dexamethasone 10 mg IVP once [facility] Disposition: 16:22 Co-signature as Attending Physician, Eriberto Clay DO I agree with the assessment and ms3 plan of care. Disposition Summary: 05/28/22 18:15 Discharge Ordered Location: Home [facility] Condition: Stable [facility] Diagnosis - Dizziness [facility] Followup: [facility] - With: Faisal Delgado MD - When: 2 - 3 days - Reason: Recheck today's complaints, Continuance of care, Re-evaluation by your physician Discharge Instructions: - Discharge Summary Sheet [facility] - Vertigo [facility] - How to Perform the Cindi Maneuver [facility] Forms: - Medication Reconciliation Form [facility] - Thank You Letter [facility] - Antibiotic Education [facility] - Prescription Opioid Use [facility] - Work release form iw Prescriptions: - Meclizine 25 mg Oral Tablet - take 2 tablet by ORAL route every 8 hours As needed; 30 tablet; Refills: 0, [facility] Product Selection Permitted Signatures: Dispatcher [employer] Ikre Crain PA PA jmm Hall, Patricia RN RN Eriberto Tang DO DO ms3 Krys Carson RN aa5
--- NOTE | 2022-05-28 18:16 | ER ---
Nurse's Notes [facility] Name: Latoya Pfeiffer Age: 66 yrs Sex: Female : 1955 Arrival Date: 05/28/2022 Time: 11:41 Bed 5 Private MD: Diagnosis: Dizziness Presentation: 05/28 11:41 Chief complaint: EMS states: Pt was driving to work and began feeling "shaky and weak", ph pulled over and called EMS, initial BGL 390, pt is IDDM, did not take diabetes medication this morning, VSS, pt states that she was recently dx w/ UTI and has a new prescription for Ativan. Coronavirus screen: Vaccine status: Patient reports receiving the 2nd dose of the covid vaccine. Ebola Screen: No symptoms or risks identified at this time. Initial Sepsis Screen: Does the patient meet any 2 criteria? No. Patient's initial sepsis screen is negative. Does the patient have a suspected source of infection? No. Patient's initial sepsis screen is negative. Risk Assessment: Do you want to hurt yourself or someone else? Patient reports no desire to harm self or others. Onset of symptoms was May 28, 2022. Care prior to arrival: Medication(s) given: Normal saline infusion, 300 mL IV initiated. 20 GA, in the right antecubital area, Glucose check: 390. 11:41 Method Of Arrival: EMS: [facility] 11:41 Acuity: LUCINA 3 ph Triage Assessment: 11:44 General: Appears in no apparent distress. Behavior is calm, cooperative, appropriate ph for age. Pain: Denies pain. Neuro: Level of Consciousness is awake, alert, obeys commands, Oriented to person, place, time, situation, Reports weakness in "all over". Cardiovascular: Capillary refill < 3 seconds in bilateral fingers. Respiratory: Airway is patent Respiratory effort is even, unlabored. GI: No signs and/or symptoms were reported involving the gastrointestinal system. : Reports incontinence, urinary frequency, dx w/ UTI yesterday. Derm: Skin is healthy with good turgor, Skin is pink, warm \\T\\ dry. Historical: - Allergies: 11:44 No Known Drug Allergies; ph - PMHx: 11:44 SCIATIC NERVE PAIN; Hypertensive disorder; Diabetes mellitus; ph - PSHx: 11:44 Appendectomy; Cholecystectomy; hysterectomy; ph - Immunization history:: Adult Immunizations not immunized. - Social history:: Smoking status: Patient denies any tobacco usage or history of. Screenin:51 Abuse screen: Denies threats or abuse. Denies injuries from another. Nutritional ph screening: No deficits noted. Tuberculosis screening: No symptoms or risk factors identified. Fall Risk None identified. Assessment: 12:00 General: SEE TRIAGE ASSESSMENT. ph 13:30 Reassessment: Patient appears in no apparent distress at this time. Patient and/or ph family updated on plan of care and expected duration. Pain level reassessed. Patient is alert, oriented x 3, equal unlabored respirations, skin warm/dry/pink. 14:49 Reassessment: Patient appears in no apparent distress at this time. Patient and/or ph family updated on plan of care and expected duration. Pain level reassessed. Patient is alert, oriented x 3, equal unlabored respirations, skin warm/dry/pink. Pt continues to c/o dizziness, noted to be unsteady when standing to go to restroom, Valium administered per order. 16:00 Reassessment: Patient appears in no apparent distress at this time. Patient and/or ph family updated on plan of care and expected duration. Pain level reassessed. Patient is alert, oriented x 3, equal unlabored respirations, skin warm/dry/pink. 17:29 Reassessment: Patient appears in no apparent distress at this time. Patient and/or ph family updated on plan of care and expected duration. Pain level reassessed. Patient is alert, oriented x 3, equal unlabored respirations, skin warm/dry/pink. Pt taken to MRI. Vital Signs: 11:41 BP 149 / 87; Pulse 87; Resp 18; Temp 98.0; Pulse Ox 96% on R/A; Weight 84.37 kg; Height ph 5 ft. 0 in. (152.40 cm); 13:00 BP 170 / 99; Pulse 80; Resp 18; Pulse Ox 97% on R/A; ph 14:00 BP 160 / 95; Pulse 70; Resp 18; Pulse Ox 96% on R/A; ph 14:50 BP 155 / 96; Pulse 70; Resp 18; Pulse Ox 95% on R/A; ph 16:30 BP 149 / 87; Pulse 66; Resp 16; Pulse Ox 99% on 3 lpm NC; ph 18:00 BP 142 / 78; Pulse 65; Resp 18; Temp 97.9; Pulse Ox 98% on R/A; ph 11:41 Body Mass Index 36.33 (84.37 kg, 152.40 cm) ph ED Course: 11:41 Patient arrived in ED. ph 11:41 Iker Kulkarni PA is PHCP. jmm 11:41 Eriberto Clay DO is Attending Physician. jmm 11:44 Triage completed. ph 11:45 Arm band placed on Patient placed in an exam room. ph 11:48 My Kam, RN is Primary Nurse. ph 12:29 XRAY Chest (1 view) In Process Unspecified. EDMS 12:40 CT Head Brain wo Cont In Process Unspecified. EDMS 13:33 CT Head Angio In Process Unspecified. EDMS 13:37 CT Neck Angio In Process Unspecified. EDMS 14:50 No provider procedures requiring assistance completed. Maintain EMS IV. Dressing ph intact. Good blood return noted. Site clean \\T\\ dry. Gauge \\T\\ site: 20 RAC. 14:51 Patient has correct armband on for positive identification. Bed in low position. Call ph light in reach. Side rails up X 1. Pulse ox on. NIBP on. 17:43 Brain Wo Cont MRI In Process Unspecified. EDMS 18:15 Faisal Delgado MD is Referral Physician. jmm 19:09 IV discontinued, intact, bleeding controlled, No redness/swelling at site. Pressure ph dressing applied. Administered Medications: 12:00 Drug: Meclizine 25 mg Route: PO; ph 14:49 Follow up: Response: No adverse reaction; No change in condition ph 13:10 Drug: NS 0.9% 1000 ml Route: IV; Rate: 1 bolus; Site: right antecubital; ph 18:24 Follow up: Response: No adverse reaction; IV Status: Completed infusion; IV Intake: ph 1000ml 14:23 Drug: Insulin Regular Human 10 units {Co-Signature: aa5 (Krys Carson RN).} Route: ph IVP; Site: right antecubital; 18:24 Follow up: Response: No adverse reaction ph 14:49 Drug: Valium (diazepam) 2 mg Route: IVP; Site: right antecubital; ph 18:24 Follow up: Response: No adverse reaction ph 15:54 Drug: Valium (diazepam) 5 mg Route: IVP; Site: left antecubital; ph 18:24 Follow up: Response: No adverse reaction ph 15:55 Not Given (hyperglycemiaa): Decadron - Dexamethasone 10 mg IVP once justa Medication: 14:53 VIS not applicable for this client. ph Intake: 18:24 IV: 1000ml; Total: 1000ml. ph Outcome: 18:15 Discharge ordered by MD. marr 19:09 Discharged to home with family. ph 19:09 Condition: good 19:09 Discharge instructions given to patient, Instructed on discharge instructions, follow up and referral plans. medication usage, Demonstrated understanding of instructions, follow-up care, medications, Prescriptions given X 1. 19:09 Patient left the ED. ph Signatures: Dispatcher [employer] EDMS Iker Kulkarni PA PA jmm Hall, Patricia, RN RN ph Krys Carson RN aa5 Corrections: (The following items were deleted from the chart) 17:32 17:29 Reassessment: Patient appears in no apparent distress at this time. Patient ph and/or family updated on plan of care and expected duration. Pain level reassessed. Patient is alert, oriented x 3, equal unlabored respirations, skin warm/dry/pink. ph
[2022-05-28 20:04] VITALS: TEMP 98
[2022-05-28 20:14] VITALS: BP 149/87; O2SAT 99
--- NOTE | 2022-05-29 13:57 | EKG ---
Test Date: 2022-05-28 Test Time: 11:51:06 Fur Machine Operator: ROSHAN MEASUREMENT RESULTS: Intervals: Rate: 75 OK: 154 QRSD: 90 QT: 394 QTc: 439 [place]: P: 26 OK: 154 QRS: 26 T: 54 INTERPRETIVE STATEMENTS: Normal sinus rhythm Low voltage QRS Borderline ECG Compared to ECG 08/23/2021 10:29:49 Low QRS voltage now present Electronically Signed On 05-29-22 13:55:40 CDT by Jeffery Panda
== END 2022-05-28 19:09 | disposition home or self-care (01) ==
LOC: ER 11:27
DX: R42 Dizziness and giddiness (principal); R53.1 Weakness; I10 Essential (primary) hypertension; E11.9 Type 2 diabetes mellitus without complications; Z20.822 Contact with and (suspected) exposure to COVID-19
CPT/HCPCS: 93005; 85025; 80048; 36415; 83735; 85610; 80076; 81003; 84484; 83880; 70450; 70496; 70498; 71045; 70551; 99284; U0003; Q9967; J1815; J8597; J3360; J7030 ×2; J1100

== ENCOUNTER 2022-05-29 19:52 | Emergency (ER) | payer OTHER ==
--- OUTSIDE RECORDS SUMMARY | 2022-05-29 19:56 | XMS REPORT | Continuity of Care Document ---
:1955 Author Organization [facility] t Address [address] [place] [address] Care Team Providers Name Role Phone JENN OJNAS Primary Care Physician Unavailable JENN JONAS Attending Clinician Unavailable Jenn Fuller Attending Clinician Maxim RN, Jaimie Holland Attending Clinician Unavailable Sheri Bee Attending Clinician Emelia Padilla Attending Clinician Payers Payer Name Policy Type Policy Number Effective Date Expiration Date [place] SWENSON [id number] 2016 00:00:00 Problems Condition Condition Condition Status Onset Resolution Last Treating Co mments Source Name Details Category Date Date Treatment Clinician Date Urinary Urinary Disease Active [facility] tract tract 2-18 [place] Anxiety Anxiety Disease Active Univers 2-18 ity of 00:00: [place] 00 Medical Branch Type 1 Type 1 [...] c cystitis 2-18 it y of 00:00: [place] [facility] Overactive Overactive Disease Active U nivers bladder bladder 2-18 ity of 00:00: [place] [facility] Encounter Encounter Disease Active Uni [...] BACK 12-10 13:11:00 l PAIN PAIN 00:01: [place] Active 00 12/10/2016 PRESTON [place] Obesity Obesity Disease Active 2015-09 Univers (BMI (BMI 2-04 ity of 30-39.9) 30-39.9) 00:00: [place] [facility] Branch 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 exposure 00:00:00 00:00:00 [facility] Sex Assigned At [address] 1955 [facility] 00:00:00 00:00:00 [place] Smoking Status Start Date Stop Date Source Never smoker [facility] Medications Ordered Filled Start Stop Current Ordering Indication Dosage Frequency Signature Comments Components Source Medication Medication Date Date Medication? Clinician (SIG) Name Name citalopram Yes 40mg Take 40 mg U nivers (CELEXA) 40 2-18 by mouth ity of mg tablet 16:28: daily. [place] 46 Medical Branch zolpidem Yes 5mg Take [...] under the ity of ASPART 16:28: skin. [place] (NOVOLOG 46 Medical MIX 70-30 Branch [place]) atorvastati 2021- No [id number] 40mg Take 1 Univers n 40 mg 2-18 05-20 9101 tablet by ity of tablet 00:00: 04:59 mouth at [place] 00 :00 bedtime Medical for 90 Branch days. lisinopriL 2021- No [id number] 5mg Take 1 Univers 5 mg tablet 2-18 05-20 9101 tablet by it y of 00:00: 04:59 mouth [place] 00 :00 daily for Medical 90 days. Branch hydrOXYzine 2021- No [id number] 25mg Take 1 Univers 25 mg 2-18 04-20 tablet by ity of tablet 00:00: 04:59 mouth [place] 00 :00 every 6 Medical (six) Branch hours as needed for Itching (can take 2 before bed for insomnia) for up to 60 days. Nitrofurant 2021- No [id number] 100mg Take 1 Univers oin&Nit. 2-18 02-24 capsule by ity of [place] 00:00: 05:59 mouth [place] (MACROBID) 00 :00 every 12 Medic al 100 mg (twelve) Branch capsule hours for 5 days. traMADOL 50 Yes [id number] 50mg Take 1 Univers mg tablet 5-28 tablet by ity o f 00:00: mouth [place] 00 every 6 Medical (six) Branch hours as needed for Pain (scale 4-6). ondansetron No 8mg Take 1 Uni vers (ZOFRAN [...] Yes 200mg Take 1 Uni vers dine 2 tablet by ity of (PYRIDIUM) 00:00: [place] 3 [place] 200 mg 00 (three) Medical tablet times Branch daily. ciprofloxac 2015-09 No 500mg Take 1 Un nhi in HCl 10-21 tablet by ity of (CIPRO) 500 00:00: 00:00 mouth 2 [place] mg tablet 00 :00 (two) Medical times Branch daily. Immunizations Ordered Filled Immunization Date Status Comments [facility] e Immunization Name Name Influenza Virus 2016-08-26 [facility] Quad IM 3+ 00:00:00 [facility] Branch Pneumococcal 2016-08-26 Completed University o f Polysaccharide, 00:00:00 [facility] ical PPSV23 (PNEUMOVAX) Branch Vital Signs Vital Name Observation Time Observation Value Comments Source Body temperature 2021-11-07 14:28:00 36.72 Graciela [facility] Body height 2021-11-07 14:28:00 152.4 cm [facility] Body weight 2021-11-07 14:28:00 84.369 kg [facility] BMI 2021-11-07 14:28:00 36.33 kg/m2 [facility] Oxygen saturation in 2021-11-07 14:28:00 97 /min [facility] Arterial blood by [facility] Pulse oximetry Branch Systolic blood 2021-11-07 14:28:00 149 mm[Hg] [facility] sity of pressure [facility] Diastolic blood 2021-11-07 14:28:00 80 mm[Hg] Unive rsity of pressure [facility] Heart rate 2021-11-07 14:28:00 70 /min Universi ty [facility] Procedures Procedure Date / Time Performed Performing Clinician Sourmariela e POCT URINALYSIS 2021-11-07 14:38:00 Jenn Jonas o f [facility] Encounters Start End Encounter Admission Attending Care Care Encounter Source Date/Time Date/Time Type Type Clinicians Facility Department ID 2021-12-05 2021-12-05 Outpatient Royce JONAS [facility] [id number] Univers 09:30:00 09:30:00 JENN oleary [facility] 2021-11-07 2021-11-07 Outpatient Royce JONAS [facility] [id number] Univers 08:00:00 09:31:42 JENN oleary [facility] 2021-11-07 2021-11-07 Office Sumi [facility] [id number] Univers 08:00:00 09:31:42 Visit [facility] [id number] it y of [place] [id number] Nathan as LUANA?BLEA [id number] [address] MEDICAL OFFICE BUILDING 2020-02-29 2020-02-29 Telephone AJAY Pan [id number] 00:00:00 00:00:00 Jaimie S JUAN C [id number] [facility] [id number] 2019-02-14 2019-02-15 Outpatient [facility] [id number] Memoria 13:54:00 04:59:00 royce freedman [facility] 2019-02-14 2019-02-15 Outpatient Critical access hospital [id number] Memoria 13:54:00 04:59:00 royce freedman [facility] 2019-02-14 2019-02-14 Outpatient Constantine [facility]SE [facility]SE [id number] 08:54:00 23:59:00 Sheri benavides 2019-02-14 2019-02-14 Outpatient MHSE [facility]SE [id number] MH 08:54:00 08:54:[address] [facility] 2016-12-10 2016-12-11 Outpt Diag nullFlavo [facility] [id number] Memoria 18:02:00 04:59:00 Services r Outpatient 00 l Imaging Germain [place] 2016-12-10 2016-12-11 Outpt Diag nullFlavo [facility] [id number] Memoria 18:02:00 04:59:00 Services r Outpatient 00 l Imaging Germain [place] 2016-12-10 2016-12-10 Outpatient Emelia Padilla [facility] [id number] 13:02:00 23:59:00 00 Results Test Description Test [...] 3267) cloudy Lab Interpretation (test code = 49735-0) Abnormal [facility]
[2022-05-29 21:54] LABS: Absolute Lymphocytes (CBC) 1.4 K/uL (0.7-4.9); Hematocrit 45.7 % (36.0-45.0); Lymphocytes % 19.7 % (15.3-44.8); MCV 88.8 fL (80-100); MPV 10.8 fL (7.6-11.3); RBC Red Blood Cell Count 5.15 M/uL (3.86-4.86)
[2022-05-29 21:57] LABS: Urine Blood Negative (Negative); Urine Glucose 3+ (Negative); Urine Protein Negative (Negative); Urine Specific Gravity 1.025 (1.005-1.030)
[2022-05-29 22:13] LABS: SARS-CoV-2 Antigen Rapid Res Negative (Negative)
[2022-05-29 22:20] LABS: ALT/SGPT 44 U/L (12-78); AST/SGOT 21 U/L (15-37); Albumin 3.6 g/dL (3.4-5.0); Alkaline Phosphatase 207 U/L (45-117); BUN Blood Urea Nitrogen 24 mg/dL (7-18); Bicarbonate 25 mmol/L (21-32); Bilirubin Total 0.4 mg/dL (0.2-1.0); Glomerular Filtration Rate 53 ml/min (=/>90); Lipase 192 U/L (73-393); Potassium 4.5 mmol/L (3.5-5.1); Protein, Total 8.4 g/dL (6.4-8.2); Sodium Level 132 mmol/L (136-145)
[2022-05-29 22:22] LABS: Urine RBC <5 /HPF (None Seen)
[2022-05-29] MEDS ORDERED: NA CHLORIDE 0.9% 1,000 ML ONE (22:23)
[2022-05-29] MEDS ORDERED: FAMOTIDINE 20 MG/2 ML VIAL IV ONE (22:23)
[2022-05-29 22:28] LABS: Glucose Level 627 mg/dL (74-106)
[2022-05-29] MEDS ORDERED: INSULIN -REGULAR HUMAN 50 UNIT/0.5 ML ML ONE (22:47)
--- NOTE | 2022-05-30 00:27 | ER ---
Nurse's Notes [facility] Name: Latoya Pfeiffer Age: 66 yrs Sex: Female : 1955 Arrival Date: 05/29/2022 Time: 19:55 Bed 13 Private MD: Diagnosis: Diabetes mellitus due to underlying condition with hyperglycemia;Patient's unintentional underdosing of medication regimen Presentation: 05/29 20:43 Chief complaint: Patient states: My blood sugar has been really high for the past few bm7 days. I am so thirsty all the time and my whole body hurts. I was here a few days ago for the same thing. Coronavirus screen: At this time, the client does not indicate any symptoms associated with coronavirus-19. Ebola Screen: No symptoms or risks identified at this time. Initial Sepsis Screen: Does the patient meet any 2 criteria? No. Patient's initial sepsis screen is negative. Does the patient have a suspected source of infection? No. Patient's initial sepsis screen is negative. Risk Assessment: Do you want to hurt yourself or someone else? Patient reports no desire to harm self or others. Onset of symptoms is unknown. 20:43 Method Of Arrival: Ambulatory bm7 20:43 Acuity: LUCINA 3 bm7 Triage Assessment: 20:43 Headache History: Denies prior headaches. General: Appears in no apparent distress. bm7 comfortable, Behavior is calm, cooperative, appropriate for age. Pain: Denies pain. Pain: Pain. EENT: No deficits noted. No signs and/or symptoms were reported regarding the EENT system. Neuro: No deficits noted. Level of Consciousness is awake, alert, obeys commands, Oriented to person, place, time, situation, Meter Record Clerk are equal bilaterally Moves all extremities. Gait is steady, Speech is normal. Cardiovascular: No deficits noted. Respiratory: No deficits noted. GI: No deficits noted. No signs and/or symptoms were reported involving the gastrointestinal system. : Reports burning with urination, cramping, urgency, urinary frequency. Derm: No deficits noted. No signs and/or symptoms reported regarding the dermatologic system. Musculoskeletal: No deficits noted. No signs and/or symptoms reported regarding the musculoskeletal system. Historical: - Allergies: 20:43 No Known Allergies; bm7 - Home Meds: 20:43 Unable to obtain [Active]; bm7 - PMHx: 20:43 diabetes mellitus; Hypertensive disorder; SCIATIC NERVE PAIN; bm7 - PSHx: 20:43 Appendectomy; Cholecystectomy; hysterectomy; 7 - Immunization history:: Adult Immunizations up to date, Client reports having NOT received the Covid vaccine. - Social history:: Smoking status: Patient denies any tobacco usage or history of. Screenin/10 00:34 Abuse screen: Denies threats or abuse. Nutritional screening: No deficits noted. ja4 Tuberculosis screening: No symptoms or risk factors identified. Assessment: 00:34 General: Appears comfortable, Behavior is calm, cooperative, appropriate for age. ja4 Vital Signs: 05/29 20:42 BP 142 / 90; Pulse 78; Resp 18; Temp 97.3(TE); Pulse Ox 100% on R/A; Weight 81.65 kg; bm7 Height 5 ft. 0 in. (152.40 cm); Pain 0/10; 05/30 00:34 BP 140 / 86; Pulse 82; Resp 22; Pulse Ox 97% ; ja4 05/29 20:42 Body Mass Index 35.15 (81.65 kg, 152.40 cm) 7 ED Course: 05/29 19:55 Patient arrived in ED. jj6 20:15 Justyna Rutherford FNP-C is PHCP. snw 20:15 Stalin Hernandez MD is Attending Physician. snw 20:43 Triage completed. bm7 20:43 Arm band placed on right wrist. bm7 21:55 SARS RAPID Sent. mh5 21:55 Acetone, Serum Sent. mh5 21:55 Initial lab(s) drawn, by vt, sent to lab. First set of blood cultures drawn Second set mh5 of blood cultures drawn by vt, Urine collected: clean catch specimen, cloudy, COVID swab sent to lab. 21:56 Blood Culture Adult (2) Sent. mh5 21:56 Urine Culture Sent. mh5 21:56 Urine Microscopic Only Sent. mh5 21:56 CBC with Diff Sent. mh5 21:56 CMP Sent. mh5 21:56 Lipase Sent. mh5 22:06 Patient has correct armband on for positive identification. Placed in gown. Bed in low mh5 position. Call light in reach. Side rails up X 1. Warm blanket given. hall monitor on. Pulse ox on. NIBP on. 22:06 Inserted saline lock: 22 gauge in left antecubital area, using aseptic technique. Blood [facility] collected. 22:07 Urine Culture Sent. [facility] 22: Urine Microscopic Only Sent. [facility] 22:08 Danial Patrick, RN is Primary Nurse. [facility] 05/30 00:53 IV discontinued, intact, bleeding controlled, No redness/swelling at site. Pressure [facility] dressing applied. Administered Medications: 05/29 22:18 Drug: NS 0.9% 1000 ml Route: IV; Rate: 1 bolus; Site: left antecubital; [facility] :18 Drug: Pepcid (famotidine) 20 mg Route: IVP; Site: left antecubital; [facility] 22:42 Drug: Insulin Regular Human 10 units {Co-Signature: hb (Gauri Belcher RN).} Route: ja4 IVP; Site: left antecubital; Medication: 05/30 00:34 VIS not applicable for this client. [facility] Point of Care Testing: Blood Glucose: 05/29 20:42 Blood Glucose: High (>450 mg/dL); bm7 Ranges: Outcome: 05/30 00:26 Discharge ordered by . james 00:53 Discharged to home via wheelchair. [facility] 00:53 Condition: stable 00:53 Discharge instructions given to Instructed on discharge instructions, follow up and referral plans. medication usage, Prescriptions given X 1. 00:54 Patient left the ED. [facility] Signatures: Justyna Rutherford FNP-C MIXED LIVESTOCK FARM WORKER-Csnw Latoya Torrez 5 Yanelis Bonilla RN RN 7 Luz Wiggins6 Danial Patrick, RN RN jase campuzano Corrections: (The following items were deleted from the chart) 05/29 21:14 20:43 Acuity: LUCINA 2 bm7 bm7
--- NOTE | 2022-05-30 00:27 | EDPHYS ---
Physician Documentation [facility] Name: Latoya Pfeiffer Age: 66 yrs Sex: Female : 1955 Arrival Date: 05/29/2022 Time: 19:55 Bed 13 Private MD: ED Physician Stalin Hernandez HPI: 05/30 00:38 This 66 yrs old Female presents to ER via Ambulatory with complaints of High snw Blood Sugar, Headache, Dizziness, Excessive Thirst. 01:12 The patient or guardian reports hyperglycemia, polydipsia, polyuria, that was snw potentially precipitated by pt has not had one of her medications available x 1 week. Rec'd decadron yesterday.. Onset: The symptoms/episode began/occurred acutely. Associated signs and symptoms: Pertinent positives: polydipsia, polyphagia. Current symptoms: In the emergency department the patient's symptoms are unchanged from the initial presentation. The patient has experienced similar episodes in the past. The patient has been recently seen by a physician: The patient has been recently seen at the [facility] Emergency Department, yesterday, for similar complaints labs were performed, CT scan was performed. Historical: - Allergies: 05/29 20:43 No Known Allergies; bm7 - Home Meds: 20:43 Unable to obtain [Active]; bm7 - PMHx: 20:43 diabetes mellitus; Hypertensive disorder; SCIATIC NERVE PAIN; bm7 - PSHx: 20:43 Appendectomy; Cholecystectomy; hysterectomy; bm7 - Immunization history:: Adult Immunizations up to date, Client reports having NOT received the Covid vaccine. - Social history:: Smoking status: Patient denies any tobacco usage or history of. ROS: 05/30 01:12 Eyes: Negative for injury, pain, redness, and discharge, ENT: Negative for injury, snw pain, and discharge, Neck: Negative for injury, pain, and swelling, Cardiovascular: Negative for chest pain, palpitations, and edema, Respiratory: Negative for shortness of breath, cough, wheezing, and pleuritic chest pain. Back: Negative for injury and pain, : Negative for injury, bleeding, discharge, and swelling, MS/Extremity: Negative for injury and deformity, Skin: Negative for injury, rash, and discoloration, Neuro: Negative for headache, weakness, numbness, tingling, and seizure. Constitutional: Positive for malaise. Abdomen/GI: Positive for polyphagia, polydipsia. Exam: 01:15 Constitutional: This is a well developed, well nourished patient who is awake, alert, snw and in no acute distress. Head/Face: Normocephalic, atraumatic. Eyes: Pupils equal round and reactive to light, extra-ocular motions intact. Lids and lashes normal. Conjunctiva and sclera are non-icteric and not injected. Cornea within normal limits. Periorbital areas with no swelling, redness, or edema. ENT: Nares patent. No nasal discharge, no septal abnormalities noted. Tympanic membranes are normal and external auditory canals are clear. Oropharynx with no redness, swelling, or masses, exudates, or evidence of obstruction, uvula midline. Mucous membranes moist. Neck: Trachea midline, no thyromegaly or masses palpated, and no cervical lymphadenopathy. Supple, full range of motion without nuchal rigidity, or vertebral point tenderness. No Meningismus. Chest/axilla: Normal chest wall appearance and motion. Nontender with no deformity. No lesions are appreciated. Cardiovascular: Regular rate and rhythm with a normal S1 and S2. No gallops, murmurs, or rubs. Normal PMI, no JVD. No pulse deficits. Respiratory: Lungs have equal breath sounds bilaterally, clear to auscultation and percussion. No rales, rhonchi or wheezes noted. No increased work of breathing, no retractions or nasal flaring. Abdomen/GI: Soft, non-tender, with normal bowel sounds. No distension or tympany. No guarding or rebound. No evidence of tenderness throughout. Back: No spinal tenderness. No costovertebral tenderness. Full range of motion. Skin: Warm, dry with normal turgor. Normal color with no rashes, no lesions, and no evidence of cellulitis. MS/ Extremity: Pulses equal, no cyanosis. Neurovascular intact. Full, normal range of motion. Neuro: Awake and alert, GCS 15, oriented to person, place, time, and situation. Cranial nerves II-XII grossly intact. Motor strength 5/5 in all extremities. Sensory grossly intact. Cerebellar exam normal. Normal gait. Vital Signs: 05/29 20:42 BP 142 / 90; Pulse 78; Resp 18; Temp 97.3(TE); Pulse Ox 100% on R/A; Weight 81.65 kg; bm7 Height 5 ft. 0 in. (152.40 cm); Pain 0/10; 05/30 00:34 BP 140 / 86; Pulse 82; Resp 22; Pulse Ox 97% ; ja4 05/29 20:42 Body Mass Index 35.15 (81.65 kg, 152.40 cm) bm7 MDM: 05/29 20:59 Data reviewed: vital signs, nurses notes. Data interpreted: Pulse oximetry: on room air snw is 100 %. Interpretation: normal. Counseling: I had a detailed discussion with the patient and/or guardian regarding: the historical points, exam findings, and any diagnostic results supporting the discharge/admit diagnosis. ED course: Pt was seen in this ED yesterday, labs unremarkable except blood sugar elevation. Pt usually in the 200mg/dL range and she had not taken her medication yesterday. Had imaging that was reassuring of head. No evidence of CVA/VBI. Pt rec'd Decadron and thus I would expect blood sugar to be high today. Will repeat labs and Sars and if not concerning will then dc pt home. 21:02 Patient medically screened. sn 05/29 20:56 Order name: CBC with Diff; Complete Time: 22:03 snw 05/29 20:56 Order name: CMP; Complete Time: 22:29 snw 05/29 20:56 Order name: Lipase; Complete Time: 22:29 snw 05/29 20:56 Order name: Blood Culture Adult (2) sn 05/29 20:56 Order name: Urine Culture w 05/29 20:56 Order name: Urine Microscopic Only; Complete Time: 22:27 snw 05/29 20:56 Order name: Acetone, Serum; Complete Time: 22:29 snw 05/29 20:56 Order name: SARS RAPID; Complete Time: 22:19 snw 05/29 21:07 Order name: Glucose, Ancillary Testing; Complete Time: 21:07 EDMS 05/29 21:57 Order name: Urine Dipstick-Ancillary; Complete Time: 21:58 EDMS 05/30 00:17 Order name: Glucose, Ancillary Testing; Complete Time: 00:19 EDMS 05/29 20:56 Order name: IV Saline Lock; Complete Time: 21:56 snw 05/29 20:56 Order name: Labs collected and sent; Complete Time: 21:56 snw 05/29 20:56 Order name: Urine Dipstick-Ancillary (obtain specimen); Complete Time: 21:56 w 05/29 23:51 Order name: FSBS snw Administered Medications: 22:18 Drug: NS 0.9% 1000 ml Route: IV; Rate: 1 bolus; Site: left antecubital; ja4 22:18 Drug: Pepcid (famotidine) 20 mg Route: IVP; Site: left antecubital; [facility] 22:42 Drug: Insulin Regular Human 10 units {Co-Signature: justen (Gauri Belcher RN).} Route: ja4 IVP; Site: left antecubital; Point of Care Testing: Blood Glucose: 20:42 Blood Glucose: High (>450 mg/dL); bm7 Ranges: Critical Glucose Levels:Adult <50 mg/dl or >400 mg/dl <40 mg/dl or >180 mg/dl Disposition: 05/30 06:10 Co-signature as Attending Physician, Stalin Hernandez MD. rn Disposition Summary: 05/30/22 00:26 Discharge Ordered Location: Home snw Condition: Stable snw Diagnosis - Diabetes mellitus due to underlying condition with hyperglycemia snw - Patient's unintentional underdosing of medication regimen snw Followup: snw - With: Emergency Department - When: As needed - Reason: Worsening of condition Followup: snw - With: Private Physician - When: 2 - 3 days - Reason: Recheck today's complaints, Continuance of care, Re-evaluation by your physician Discharge Instructions: - Discharge Summary Sheet snw - Diabetes Mellitus and Sick Day Management snw - Hyperglycemia snw - Form - Daily Diabetes Record snw - Blood Glucose Monitoring, Adult snw Forms: - Medication Reconciliation Form snw - Thank You Letter snw - Antibiotic Education snw - Prescription Opioid Use snw Prescriptions: - Novolog U-100 Insulin aspart - inject 5 unit by SUBCUTANEOUS route 2 times per day Inject at breakfast and snw lunch if FSBS is greater than 280mg/dL; 1 bottle; Refills: 0, Product Selection Permitted Signatures: Dispatcher [employer] EDJustyna Gooden FNP-C CANE PACKER-CsnStalin Coyne MD MD rn Yanelis Bonilla RN RN bm7 Danial Patrick RN RN ja4 Gauri Belcher RN hb
[2022-05-30 06:40] VITALS: TEMP 97.3
[2022-05-30 06:42] VITALS: BP 140/86; O2SAT 97
== END 2022-05-30 00:54 | disposition home or self-care (01) ==
LOC: ER 19:52
DX: E11.65 Type 2 diabetes mellitus with hyperglycemia (principal); Z91.138 Patient's unintentional underdosing of medication regimen for other reason; I10 Essential (primary) hypertension; Z20.822 Contact with and (suspected) exposure to COVID-19
CPT/HCPCS: 87040 ×2; 87088; 85025; 87086; 36415; 82010; 82947 ×2; 83690; 80053; 96375; 96374; 99284; 87811; J7030; 81003; 81015; J1815

== ENCOUNTER 2022-08-17 17:59 | Emergency (ER) | payer OTHER ==
--- OUTSIDE RECORDS SUMMARY | 2022-08-17 18:04 | XMS REPORT | Continuity of Care Document ---
:1955 Author Organization [facility] t Address [address] [place] [address] Care Team Providers Name Role Phone JENN JONAS Primary Care Physician Unavailable JENN JONAS Attending Clinician Unavailable Lab, Ang - Db Attending Clinician Unavailable Jenn Fuller Attending Clinician Doctor Unassigned, [place] Attending Clinician Unavailable Maxim ESCALERA, Jaimie S Attending Clinician Unavailable APOLINAR MOORE Attending Clinician Unavailable Sheri Bee Attending Clinician Emelia Padilla Attending Clinician Payers Payer Name Policy Type Policy Number Effective Date Expiration Date [facility] [id number] 2016 00:00:00 Problems Condition Condition Condition Status [...] Univers disorder disorder 2-18 ity of 00:00: [place] [facility] Hemorrhagi Hemorrhagi Disease Active U nivers c cystitis c cystitis 2-18 it y of 00:00: [place] [facility] Overactive Overactive Disease Active U nivers bladder bladder 2-18 ity of 00:00: [place] [facility] Encounter Encounter Disease Active Uni vers to to 2-18 [place] of establish [place] 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, disorder, 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 features features K21.0 K21.0 Diagnosis Active 2019-02-14 Mem oria GASTRO-ESO GASTRO-ESO 02-03 09:02:00 l PHAGEAL PHAGEAL 00:00: [place] REFLUX REFLUX 00 DISEASE W DISEASE W Active 02/03/2019 [place] M54.5 - M54.5 - Diagnosis Active 2016-12-10 [facility] LOW BACK LOW BACK - 13:11:00 l PAIN PAIN 00:01: [place] Active 12/10/2016 [place] Obesity Obesity Disease Active 2015-09 Univers (BMI (BMI 2-04 ity of 30-39.9) 30-39.9) 00:00: [place] [facility] Branch 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 to sis due to 2-04 it y of DM DM 00:00: [place] 00 [facility] Allergies, Adverse Reactions, Alerts Allergy Allergy Status Severity Reaction(s) Onset Inactive Treating Comm ents Source Name Type Date Date Clinician NO KNOWN Drug Active Univers ALLERGIE Class ity of S [facility] Social History Social Habit Start Date Stop Date Quantity Comments Source Exposure to Not sure [facility] SARS-CoV-2 (event) Medica l [place] Tobacco use and 2020-02-27 2020-02-27 Never used [facility] exposure 00:00:00 00:00:00 Medical Branch Sex Ass[birth year] [facility] 00:00:00 00:00:00 Medical Branch Smoking Status Start Date Stop Date Source Never smoker [facility] Medical Branch Medications Ordered Filled Start Stop Current Ordering Indication Dosage Frequency Signature Comments Components Source Medication Medication Date Date Medication? Clinician (SIG) Name Name citalopram Yes 40mg Take 40 mg U nivers (CELEXA) 40 2-18 by mouth ity of mg tablet 16:28: daily. [place] [id number] Medical Branch zolpidem Yes 5mg Take 5 mg Univ ers (AMBIEN) 5 2-18 by mouth ity o f mg tablet 16:28: at bedtime [facility] 46 as needed Medical for Branch Insomnia. metFORMIN Yes 500mg Take 500 Uni vers (GLUCOPHAGE 2-18 mg by ity of ) 500 mg 16:28: mouth 2 [place] tablet 46 (two) Medical times Branch daily with meals. INSULN ASP Yes inject Unive rs PRT/INSULIN 2-18 under the ity of ASPART 16:28: skin. [place] (NOVOLOG 46 Medical MIX 70-30 Branch SC) atorvastati 2021- No [id number] 40mg Take 1 Univers n 40 mg 2-18 05-20 9101 tablet by ity of tablet 00:00: 04:59 mouth at [place] 00 :00 bedtime Medical for 90 Branch days. lisinopriL 2021- No [id number] 5mg Take 1 Univers 5 mg tablet 2-18 05-20 9101 tablet by it y of 00:00: 04:59 mouth [place] 00 :00 daily for Medical 90 days. Branch hydrOXYzine 2021- No [id number] 25mg Take 1 Univers 25 mg 2-18 04-20 tablet by ity of tablet 00:00: 04:59 mouth [place] 00 :00 every 6 Medical (six) Branch hours as needed for Itching (can take 2 before bed for insomnia) for up to 60 days. Nitrofurant 2021- No [id number] 100mg Take 1 Univers oin&Nit. 2-18 02-24 capsule by ity of [place] 00:00: 05:59 mouth [place] (MACROBID) 00 :00 every 12 Medic al 100 mg (twelve) Branch capsule hours for 5 days. traMADOL 50 2018- Yes [id number] 50mg Take 1 Univers mg tablet 5-28 [...] Immunizations Ordered Filled Immunization Date Status Comments [facility] e Immunization Name Name Influenza Virus 2016-08-26 Completed [facility] y of Vaccine Quad IM 3+ 00:00:[address] [facility] [place] YRS Branch Pneumococcal 2016-08-26 Completed [place] o f Polysaccharide, 00:00:00 [facility] ical PPSV23 (PNEUMOVAX) Branch Vital Signs Vital Name Observation Time Observation Value Comments Source Body temperature 2021-11-07 14:28:00 36.72 Graciela [facility] Body height 2021-11-07 14:28:00 152.4 cm [facility] Body weight 2021-11-07 14:28:00 84.369 kg [facility] BMI 2021-11-07 14:28:00 36.33 kg/m2 [facility] Oxygen saturation in 2021-11-07 14:28:00 97 /min [facility] Arterial blood by [facility] Pulse oximetry Branch Systolic blood 2021-11-07 14:28:00 149 mm[Hg] Univer sity of pressure [facility] Diastolic blood 2021-11-07 14:28:00 80 mm[Hg] Unive rsity of pressure [facility] Heart rate 2021-11-07 14:28:00 70 /min Universi ty of [facility] Procedures Procedure Date / Time Performed Performing Clinician Sourc e POCT URINALYSIS 2021-11-07 14:38:00 Jenn Jonas [place] o f [facility] Encounters Start End Encounter Admission Attending Care Care Encounter Source Date/Time Date/Time Type Type Clinicians Facility Department ID 2021-12-05 2021-12-05 Outpatient R [facility] [id number] Univers 09:30:00 09:30:00 JENN oleary [facility] 2021-11-07 2021-11-07 Production Support Specialist Lab, Ang - Db [facility] [id number] Univers 09:30:00 10:07:16 Visit Jenn Jonas [id number] [facility] [id number] Nathan as LUANA?BLEA [id number] [address] MEDICAL OFFICE BUILDING 2021-11-07 2021-11-07 Outpatient R [facility] [id number] Univers 08:00:00 09:31:42 JENN ab [facility] 2021-11-07 2021-11-07 [facility] [id number] Univers 08:00:00 09:31:42 Visit Jenn [facility] [id number] [facility] [id number] Nathan as LUANA?BLEA [id number] [address] MEDICAL OFFICE BUILDING 2021-11-07 2021-11-07 Outpatient R [facility] [id number] Univers 09:30:00 09:30:00 JENN oleary [facility] 2021-11-07 2021-11-07 Orders Doctor MOSS [id number] Univers 00:00:00 00:00:00 Only Unassigned, JUAN C [id number] [facility] [id number] Nathan as [id number] [address] 2020-02-29 2020-02-29 Telephone AJAY Pan [id number] 00:00:00 00:00:00 Jaimie IRIZARRY [id number] [facility] [id number] 2020-02-27 2020-02-27 Outpatient Royce [facility] [id number] [facility] 14:00:00 14:00:00 VERENANVickie [facility] [place] [facility] 2019-02-14 2019-02-15 Outpatient [facility] [id number] Memoria 13:54:00 04:59:00 r [place] [facility] 2019-02-14 2019-02-15 Outpatient [facility] [id number] Memoria 13:54:00 04:59:00 r [place] [address] [place] [address] 2019-02-14 2019-02-14 Outpatient Constant[place] [facility]SE [id number] 08:54:00 23:59:00 Sheri benavides 2019-02-14 2019-02-14 Outpatient MHSE MHSE [id number] MH 08:54:00 08:54:00 [facility] 2016-12-10 2016-12-[place] [id number] [facility] 18:02:00 04:59:00 Services r Outpatient 00 l Imaging [facility] 2016-12-10 2016-12-11 [place] [id number] [facility] 18:02:00 04:59:00 Services r Outpatient 00 l Imaging [facility] 2016-12-10 2016-12-10 Outpatient Emelia Padilla MHOIP MHOIP [id number] 13:02:00 23:59:00 00 Results Test Description Test [...] 3267) cloudy Lab Interpretation (test code = 68338-4) Abnormal [facility]
[2022-08-17 19:28] LABS: Urine Blood Trace-intact (Negative); Urine Glucose 3+ (Negative); Urine Protein 1+ (Negative); Urine Specific Gravity 1.025 (1.005-1.030); Urine pH 5.5 (5.0-7.0)
[2022-08-17 19:36] LABS: Absolute Lymphocytes (CBC) 1.5 K/uL (0.7-4.9); Hematocrit 41.5 % (36.0-45.0); Lymphocytes % 22.4 % (15.3-44.8); MCV 86.3 fL (80-100); MPV 10.6 fL (7.6-11.3); RBC Red Blood Cell Count 4.81 M/uL (3.86-4.86)
[2022-08-17] MEDS ORDERED: MORPHINE 4 MG/ML SYR ONE (19:41)
[2022-08-17] MEDS ORDERED: ONDANSETRON 4 MG/2 ML VIAL ONE (19:41)
[2022-08-17 19:48] LABS: Urine Bacteria <20 /HPF (<20); Urine Mucus Slight /HPF (None Seen)
[2022-08-17 20:48] LABS: Albumin 3.5 g/dL (3.4-5.0); Bilirubin Total 0.6 mg/dL (0.2-1.0); Potassium 3.5 mmol/L (3.5-5.1); Protein, Total 7.3 g/dL (6.4-8.2)
--- NOTE | 2022-08-17 21:36 | RAD REPORT ---
EXAM DESCRIPTION: CTAbdomen Pelvis W Contrast - 08/17/2022 9:19 pm CLINICAL HISTORY: upper abdomen pain COMPARISON: 08/02/2019 TECHNIQUE: CT of the abdomen and pelvis was performed. All CT scans are performed using dose optimization technique as appropriate and may include automated exposure control or mA/KV adjustment according to patient size. FINDINGS: Lower chest: No acute abnormality. Liver: Hepatic steatosis. Biliary: Cholecystectomy. Extrahepatic biliary ductal dilatation is probably related to the postchole cystectomy state. The findings are similar to prior. Stomach: No significant focal abnormality. Duodenum: No significant focal abnormality. Pancreas: No significant abnormality. Spleen: No significant abnormality. Adrenal: Unchanged right adrenal nodule. Kidney/ureter: No hydronephrosis. No renal calculi. Too small to characterize and/or benign appearing renal lesions are noted. Retroperitoneum: No retroperitoneal adenopathy. Vascular: No aneurysm. Mild atherosclerosis. Bowel: No significant focal abnormality. Moderate colonic stool. No appendix identified. No bowel obs truction. Peritoneum: No ascites or free air. Bladder: Trace bladder gas. Reproductive: No adnexal masses. Hysterectomy. Bones: No acute fracture. Other: n/a IMPRESSION: No acute intra-abdominal or pelvic finding. Trace bladder gas which may be from recent i nstrumentation or infection. Other incidental findings as noted above.
[2022-08-17] MEDS ORDERED: CEFTRIAXONE 1000 MG/VIAL ONE (21:59)
[2022-08-17] MEDS ORDERED: INSULIN -REGULAR HUMAN 50 UNIT/0.5 ML ML ONE (22:00)
--- NOTE | 2022-08-17 22:06 | ER ---
Nurse's Notes [facility] Name: Latoya Pfeiffer Age: 66 yrs Sex: Female : 1955 Arrival Date: 08/17/2022 Time: 18:03 Bed DIS3 Private MD: Diagnosis: UTI/ Urinary tract infection, site not specified;Upper abdominal pain, unspecified;Diabetes mellitus due to underlying condition with hyperglycemia Presentation: 08/17 18:18 Chief complaint: Patient states: I have pain in RUQ radiates to left and down, feels iw sharp, started Wednesday , no n/v/d, just pain , feels severe , denies urinary s/s. Coronavirus screen: At this time, the client does not indicate any symptoms associated with coronavirus-19. Ebola Screen: Patient negative for fever greater than or equal to 101.5 degrees Fahrenheit, and additional compatible Ebola Virus Disease symptoms Patient denies exposure to infectious person. Patient denies travel to an Ebola-affected area in the 21 days before illness onset. No symptoms or risks identified at this time. Initial Sepsis Screen: Does the patient meet any 2 criteria? No. Patient's initial sepsis screen is negative. Does the patient have a suspected source of infection? No. Patient's initial sepsis screen is negative. Risk Assessment: Do you want to hurt yourself or someone else? Patient reports no desire to harm self or others. Onset of symptoms was August 15, 2022. 18:18 Method Of Arrival: Ambulatory iw 18:18 Acuity: LUCINA 3 iw Historical: - Allergies: 18:20 No Known Allergies; iw - PMHx: 18:20 diabetes mellitus; Hypertensive disorder; SCIATIC NERVE PAIN; iw - PSHx: 18:20 Appendectomy; Cholecystectomy; hysterectomy; iw - Immunization history:: Client reports receiving the 2nd dose of the Covid vaccine. - Social history:: Smoking status: Patient denies any tobacco usage or history of. Screenin:36 Abuse screen: Denies threats or abuse. Nutritional screening: No deficits noted. pf1 Tuberculosis screening: No symptoms or risk factors identified. Fall Risk None identified. Assessment: 19:32 General: Appears in no apparent distress. Behavior is calm, cooperative, appropriate pf1 for age, quiet. Pain: Complains of pain in Patient C/O left lower back pain and right upper abdominal pain of 8 Pain radiates to back. Neuro: No deficits noted. Cardiovascular: No deficits noted. Respiratory: No deficits noted. GI: Bowel sounds present X 4 quads. Abd is soft Abdomen is tender to palpation in right upper quadrant. : Reports Patient C/O strong urine smell,onset 1 week. EENT: No deficits noted. Derm: No deficits noted. Musculoskeletal: No deficits noted. 22:12 Reassessment: Patient and/or family updated on plan of care and expected duration. Pain pf1 level reassessed. Patient is alert, oriented x 3, equal unlabored respirations, skin warm/dry/pink. Patient states symptoms have improved. Patient on discharge hold to have FSBGL rechecked in approximately 30 minutes.. Vital Signs: 18:18 BP 144 / 86; Pulse 88; Resp 18; Temp 99.1; Pulse Ox 98% on R/A; iw 22:51 BP 120 / 75; Pulse 73; Resp 18; Temp 98.4; Pulse Ox 100% ; Pain 4/10; pf1 ED Course: 18:03 Patient arrived in ED. rg4 18:04 Sriram Robertson PA is PHCP. cp 18:04 Eriberto Clay DO is Attending Physician. cp 18:19 Triage completed. iw 18:20 Arm band placed on. iw 19:15 Inserted saline lock: 20 gauge in left antecubital area, using aseptic technique. pf1 19:31 Sangita lou, LALI is Primary Nurse. pf1 21:21 CT Abd/Pelvis - IV Contrast Only In Process Unspecified. EDMS 22:13 Patient has correct armband on for positive identification. pf1 22:13 No provider procedures requiring assistance completed. pf1 23:07 IV discontinued, intact, bleeding controlled, No redness/swelling at site. Pressure pf1 dressing applied. Administered Medications: 19:45 Drug: Zofran (Ondansetron) 4 mg Route: IVP; Site: left antecubital; pf1 20:00 Follow up: Response: No adverse reaction; Nausea is decreased pf1 19:45 Drug: morphine 4 mg Route: IVP; Infused Over: 4 mins; Site: left antecubital; pf1 20:00 Follow up: Response: No adverse reaction; Pain is decreased pf1 22:01 Drug: Insulin Regular Human 5 units {Co-Signature: bb (Marcy Randolph RN).} Route: IVP; pf1 Site: left antecubital; 23:08 Follow up: Response: No adverse reaction; Blood sugar is lowered pf1 22:03 Drug: Rocephin (cefTRIAXone) 1 grams Route: IV; Rate: calculated rate; Site: left pf1 antecubital; 22:14 Follow up: Response: No adverse reaction; IV Status: Completed infusion; IV Intake: [id number] Medication: 22:13 VIS not applicable for this client. pf1 Point of Care Testing: Blood Glucose: 22:51 Blood Glucose: 159 mg/dL; pf1 Ranges: Intake: 22:14 IV: 10ml; Total: 10ml. pf1 Outcome: 22:05 Discharge ordered by . cp 23:09 Discharged to home ambulatory. pf1 23:09 Condition: good 23:09 Discharge instructions given to patient, Instructed on discharge instructions, follow up and referral plans. medication usage, Demonstrated understanding of instructions, follow-up care, medications, Prescriptions given X 2. 23:10 Patient left the ED. pf1 Signatures: Dispatcher [employer] Di Long, RN RN Sriram James PA PA cp Garcia, Rubi rg4 Sangita lou RN RN pf1 Marcy miles
--- NOTE | 2022-08-17 22:06 | EDPHYS ---
Physician Documentation [facility] Name: Latoya Pfeiffer Age: 66 yrs Sex: Female : 1955 Arrival Date: 08/17/2022 Time: 18:03 Bed DIS3 Private MD: ED Physician Eriberto Clay HPI: 08/17 19:15 This 66 yrs old Female presents to ER via Ambulatory with complaints of cp Abdominal Pain, Flank Pain. 19:15 The patient presents with abdominal pain in the right upper quadrant, right flank. cp 19:15 Onset: The symptoms/episode began/occurred 3 day(s) ago. The symptoms radiate to across cp upper abdomen and to left lower abdomen. Associated signs and symptoms: Pertinent negatives: chest pain, constipation, diarrhea, fever, hematuria, vomiting. The symptoms are described as sharp, waxing/waning. Severity of pain: in the emergency department the pain is unchanged despite home interventions. Historical: - Allergies: 18:20 No Known Allergies; iw - PMHx: 18:20 diabetes mellitus; Hypertensive disorder; SCIATIC NERVE PAIN; iw - PSHx: 18:20 Appendectomy; Cholecystectomy; hysterectomy; iw - Immunization history:: Client reports receiving the 2nd dose of the Covid vaccine. - Social history:: Smoking status: Patient denies any tobacco usage or history of. ROS: 19:20 Constitutional: Negative for body aches, chills, fever, poor PO intake. cp 19:20 Eyes: Negative for injury, pain, redness, and discharge. cp 19:20 ENT: Negative for drainage from ear(s), ear pain, sore throat, difficulty swallowing, difficulty handling secretions. 19:20 Cardiovascular: Negative for chest pain, edema, palpitations. 19:20 Respiratory: Negative for cough, shortness of breath, wheezing. 19:20 Abdomen/GI: Positive for abdominal pain, of the right upper quadrant, radiates across upper abdomen to left and to lower left abdomen, Negative for vomiting, diarrhea, constipation. 19:20 Back: Negative for injury or acute deformity, pain at rest, pain with movement. 19:20 : Positive for right flank pain, Negative for hematuria. 19:20 Skin: Negative for rash. 19:20 Neuro: Negative for altered mental status, dizziness, headache, numbness, weakness. 19:20 All other systems are negative. Exam: 19:25 Constitutional: The patient appears in no acute distress, alert, awake, cp non-diaphoretic, non-toxic, well developed, well nourished. 19:25 Head/Face: Normocephalic, atraumatic. cp 19:25 Eyes: Periorbital structures: appear normal, Conjunctiva: normal, no exudate, no injection, Sclera: no appreciated abnormality, Lids and lashes: appear normal, bilaterally. 19:25 ENT: External ear(s): are unremarkable, Nose: is normal, Mouth: Lips: moist, Oral mucosa: moist, Posterior pharynx: Airway: no evidence of obstruction, patent. 19:25 Chest/axilla: Inspection: normal. 19:25 Cardiovascular: Rate: normal, Rhythm: regular. 19:25 Respiratory: the patient does not display signs of respiratory distress, Respirations: normal, no use of accessory muscles, no retractions, labored breathing, is not present, Breath sounds: are clear throughout, no decreased breath sounds, no stridor, no wheezing. 19:25 Abdomen/GI: Inspection: abdomen appears normal, Bowel sounds: active, all quadrants, Palpation: soft, in all quadrants, moderate abdominal tenderness, in the right upper quadrant, left upper quadrant and left lower quadrant, rebound tenderness, is not appreciated, involuntary guarding, is not appreciated. 19:25 Back: CVA tenderness, is absent. 19:25 Skin: no rash present. 19:25 Neuro: Orientation: to person, place \T\ time. Mentation: is normal, Motor: moves all fours, strength is normal, Sensation: is normal. Vital Signs: 18:18 BP 144 / 86; Pulse 88; Resp 18; Temp 99.1; Pulse Ox 98% on R/A; iw 22:51 BP 120 / 75; Pulse 73; Resp 18; Temp 98.4; Pulse Ox 100% ; Pain 4/10; pf1 MDM: 18:28 Patient medically screened. cp 22:05 Data reviewed: vital signs, nurses notes, lab test result(s), radiologic studies, CT cp scan. 22:05 Differential diagnosis: bowel obstruction, gastritis, pancreatitis, Peptic Ulcer cp Disease, Perf. Duodenal Ulcer, Perf. Gastric Ulcer, Pyelonephritis, Ureterolithiasis, urinary tract infection. Counseling: I had a detailed discussion with the patient and/or guardian regarding: the historical points, exam findings, and any diagnostic results supporting the discharge/admit diagnosis, lab results, radiology results, to return to the emergency department if symptoms worsen or persist or if there are any questions or concerns that arise at home. Response to treatment: the patient's symptoms have markedly improved after treatment. Special discussion: Based on the patient's Hx, exam, and Dx evaluation, there is no indication for emergent surgery or inpatient Tx. It is understood by the patient/guardian that if the Sx's persist or worsen they need to return immediately for re-evaluation. 08/17 19:06 Order name: CBC with Diff; Complete Time: 21:41 08/17 21:41 Interpretation: Normal except: PLT 149. 08/17 19:06 Order name: CMP; Complete Time: 21:41 08/17 21:42 Interpretation: Normal except: GLUC 335; GFR 64; A/G 0.9; GLOB 3.8. 08/17 19:06 Order name: Lipase; Complete Time: 21:41 08/17 19:06 Order name: Urine Microscopic Only; Complete Time: 21:41 08/17 21:43 Interpretation: Normal except: UWBC 10-20; URBC 5-10; BYST Trace. 08/17 19:28 Order name: Urine Dipstick-Ancillary; Complete Time: 21:41 [facility] 08/17 21:43 Interpretation: Normal except: UGLUC 3+; UKET 1+; UBLD Trace-intact; UPROT 1+; UNIT cp Positive. 08/17 20:47 Order name: Urine Culture [facility] 08/17 19:06 Order name: CT Abd/Pelvis - IV Contrast Only; Complete Time: 21:41 08/17 19:06 Order name: IV Saline Lock; Complete Time: 19:32 cp 08/17 19:06 Order name: Labs collected and sent; Complete Time: 19:32 08/17 23:04 Order name: Glucose, Ancillary Testing [facility] 08/17 19:06 Order name: Urine Dipstick-Ancillary (obtain specimen); Complete Time: 19:32 cp Administered Medications: 19:45 Drug: Zofran (Ondansetron) 4 mg Route: IVP; Site: left antecubital; pf1 20:00 Follow up: Response: No adverse reaction; Nausea is decreased pf1 19:45 Drug: morphine 4 mg Route: IVP; Infused Over: 4 mins; Site: left antecubital; pf1 20:00 Follow up: Response: No adverse reaction; Pain is decreased pf1 22:01 Drug: Insulin Regular Human 5 units {Co-Signature: bb (Marcy Randolph RN).} Route: IVP; pf1 Site: left antecubital; 23:08 Follow up: Response: No adverse reaction; Blood sugar is lowered pf1 22:03 Drug: Rocephin (cefTRIAXone) 1 grams Route: IV; Rate: calculated rate; Site: left pf1 antecubital; 22:14 Follow up: Response: No adverse reaction; IV Status: Completed infusion; IV Intake: [id number] Point of Care Testing: Blood Glucose: 22:51 Blood Glucose: 159 mg/dL; pf1 Ranges: Critical Glucose Levels:Adult <50 mg/dl or >400 mg/dl <40 mg/dl or >180 mg/dl Disposition Summary: 08/17/22 22:05 Discharge Ordered Location: Home cp Problem: new cp Symptoms: have improved cp Condition: Stable cp Diagnosis - UTI/ Urinary tract infection, site not specified cp - Upper abdominal pain, unspecified cp - Diabetes mellitus due to underlying condition with hyperglycemia cp Followup: cp - With: Private Physician - When: 2 - 3 days - Reason: Recheck today's complaints Discharge Instructions: - Discharge Summary Sheet cp - Abdominal Pain, Adult cp - Hyperglycemia cp - Urinary Tract Infection, Adult cp - Blood Glucose Monitoring, Adult cp - Diabetes Mellitus and Nutrition, Adult cp Forms: - Medication Reconciliation Form cp - Thank You Letter cp - Antibiotic Education cp - Prescription Opioid Use cp Prescriptions: - Zofran 4 mg Oral Tablet - take 1 tablet by ORAL route every 12 hours As needed; 20 tablet; Refills: 0, cp Product Selection Permitted - cefpodoxime 200 mg Oral Tablet - take 1 tablet by ORAL route every 12 hours for 7 days with food; 14 tablet; cp Refills: 0, Product Selection Permitted Signatures: Dispatcher [employer] Di Long RN RN iw Sriram Robertson PA PA cp Sangita lou RN RN pf1 Marcy miles Corrections: (The following items were deleted from the chart) 21:42 21:42 Normal except: GLUC 335; GFR 64. cp cp 21:42 21:42 Normal except: GLUC 335; GFR 64; A/G 0.9. cp cp
[2022-08-17 23:31] VITALS: BP 120/75; TEMP 98.4; O2SAT 100
== END 2022-08-17 23:10 | disposition home or self-care (01) ==
LOC: ER 17:59
DX: N39.0 Urinary tract infection, site not specified (principal); E11.65 Type 2 diabetes mellitus with hyperglycemia; I10 Essential (primary) hypertension
CPT/HCPCS: 87088; 85025; 87086; 36415; 82947; 83690; 80053; 74177; Q9967; J1815; J2405; 81003; 81015; 87077; 87186; 96374; 96375; 99284

== ENCOUNTER 2022-09-15 17:57 | Emergency (ER) | payer OTHER ==
--- OUTSIDE RECORDS SUMMARY | 2022-09-15 18:00 | XMS REPORT | Continuity of Care Document ---
:1955 Author Organization [facility] t Address [address] [place] [address] Care Team Providers Name Role Phone JENN JONAS Primary Care Physician Unavailable JENN JONAS Attending Clinician Unavailable Lab, Ang - Db Attending Clinician Unavailable Jenn Fuller Attending Clinician Doctor Unassigned, [place] Attending Clinician Unavailable Maxim ESCALERA, Jaimie S Attending Clinician Unavailable APOLINAR MOORE Attending Clinician Unavailable Sheri Bee Attending Clinician Emelia Padilla Attending Clinician Payers Payer Name Policy Type Policy Number Effective Date [facility]piration Date [facility] [id number] 2016 00:00:00 Problems Condition Condition Condition Status [...] Univers disorder disorder 2-18 ity of 00:00: [place] [facility] Hemorrhagi Hemorrhagi Disease Active U nivers c cystitis c cystitis 2-18 it y of 00:00: [place] [facility] Overactive Overactive Disease Active U nivers bladder bladder 2-18 ity of 00:00: [place] [facility] Encounter Encounter Disease Active Uni [...] BACK - 13:11:00 l PAIN PAIN 00:01: [place] Active 12/10/2016 PRESTNO [place] Obesity Obesity Disease Active 2015-09 Univers (BMI (BMI 2-04 ity of 30-39.9) 30-39.9) 00:00: [place] [facility] 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 to sis due to 2-04 it y of DM DM 00:00: [place] 00 [facility] Allergies, Adverse Reactions, Alerts Allergy Allergy Status Severity Reaction(s) Onset Inactive Treating Comm ents Source Name Type Date Date Clinician NO KNOWN Drug Active Univers ALLERGIE Class ity of S [facility] Social History Social Habit Start Date Stop Date Quantity Comments Source Exposure to Not sure [facility] SARS-CoV-2 (event) Medica l Donie Tobacco use and 2020-02-27 2020-02-27 Never used [facility] exposure 00:00:00 00:00:00 Medical Branch Sex Ass[birth year] [facility] 00:00:00 00:00:00 Medical Branch Smoking Status Start Date Stop Date Source Never smoker [facility] Medical Branch Medications Ordered Filled Start Stop Current Ordering Indication Dosage Frequency Signature Comments Components Source Medication Medication Date Date Medication? Clinician (SIG) Name Name citalopram Yes 40mg Take 40 mg U nivers (CELEXA) 40 2-18 by mouth ity of mg tablet 16:28: daily. [place] [address] Medical Branch zolpidem Yes 5mg Take 5 mg Univ ers (AMBIEN) 5 2-18 by mouth ity o f mg tablet 16:28: at bedtime [facility] 46 as needed Medical for Branch Insomnia. metFORMIN Yes 500mg Take 500 Uni vers (GLUCOPHAGE 2-18 mg by ity of ) 500 mg 16:28: mouth 2 [place] tablet 46 (two) Medical times Branch daily with meals. INSULN ASP Yes inject Unive rs PRT/INSULIN 2-18 under the ity of ASPART 16:28: skin. [place] (NOVOLOG 46 Medical MIX 70-30 Branch SC) atorvastati 2021- No [id number] 40mg Take 1 Univers n 40 mg 2-18 05-20 9101 tablet by ity of tablet 00:00: 04:59 mouth at [place] 00 :00 bedtime Medical for 90 Branch days. lisinopriL 2021- No [id number] 5mg Take 1 Univers 5 mg tablet 2-18 05-20 9101 tablet by it y of 00:00: 04:59 mouth [place] 00 :00 daily for Medical 90 days. Branch hydrOXYzine 2021- No [id number] 25mg Take 1 Univers 25 mg 2-18 04-20 tablet by ity of tablet 00:00: 04:59 mouth [place] 00 :00 every 6 Medical (six) Branch hours as needed for Itching (can take 2 before bed for insomnia) for up to 60 days. Nitrofurant 2021- No [id number] 100mg Take 1 Univers oin&Nit. 2-18 02-24 capsule by ity of [place] 00:00: 05:59 mouth [place] (MACROBID) 00 :00 every 12 Medic al 100 mg (twelve) Branch capsule hours for 5 days. traMADOL 50 2018- Yes [id number] 50mg Take 1 Univers mg tablet 5-28 [...] Immunizations Ordered Filled Immunization Date Status Comments [facility] e Immunization Name Name Influenza Virus 2016-08-26 Completed [facility] y of Vaccine Quad IM 3+ 00:00:00 [facility] YRS Branch Pneumococcal 2016-08-26 Completed [place] o f Polysaccharide, 00:00:00 [facility] ical PPSV23 (PNEUMOVAX) Branch Vital Signs Vital Name Observation Time Observation Value Comments Source Body temperature 2021-11-07 14:28:00 36.72 [facility] Body height 2021-11-07 14:28:00 152.4 cm [facility] Body weight 2021-11-07 14:28:00 84.369 kg [facility] BMI 2021-11-07 14:28:00 36.33 kg/m2 [facility] Oxygen saturation in 2021-11-07 14:28:00 97 /min [facility] Arterial blood by [facility] [place] Pulse oximetry Branch Systolic blood 2021-11-07 14:28:00 149 mm[Hg] Univer sity of pressure [facility] Diastolic blood 2021-11-07 14:28:00 80 mm[Hg] Unive rsity of pressure [facility] Heart rate 2021-11-07 14:28:00 70 /min Universi ty of [facility] Procedures Procedure Date / Time Performed Performing Clinician Sourc e POCT URINALYSIS 2021-11-07 14:38:00 Jenn Jonas [place] o f [facility] Encounters Start End Encounter Admission Attending Care Care Encounter Source Date/Time Date/Time Type Type Clinicians Facility Department ID 2021-12-05 2021-12-05 Outpatient R [facility] [id number] Univers 09:30:00 09:30:00 JENN oleary [facility] 2021-11-07 2021-11-07 Balancer Lab, Ang - Db [facility] [id number] Univers 09:30:00 10:07:16 Visit Jenn Jonas [id number] itab [facility] [id number] Nathan as LUANA?BLEA [id number] [address] MEDICAL OFFICE BUILDING 2021-11-07 2021-11-07 Outpatient R [facility] [id number] Univers 08:00:00 09:31:42 JENN ab [facility] 2021-11-07 2021-11-07 [facility] [id number] Univers 08:00:00 09:31:42 Visit Jenn [facility] [id number] it y [facility] [id number] Nathan as LUANA?BLEA [id number] [address] MEDICAL OFFICE BUILDING 2021-11-07 2021-11-07 Outpatient R [facility] [id number] Univers 09:30:00 09:30:00 JENN oleary [facility] 2021-11-07 2021-11-07 Orders Doctor MOSS [id number] Univers 00:00:00 00:00:00 Only Unassigned, JUAN C [id number] [facility] [id number] Nathan as [id number] [address] 2020-02-29 2020-02-29 Telephone AJAY Pan [id number] 00:00:00 00:00:00 Jaimie IRIZARRY [id number] [facility] [id number] 2020-02-27 2020-02-27 Outpatient Royce [facility] [id number] [facility] 14:00:00 14:00:00 VERENANVickie [facility] 2019-02-14 2019-02-15 Outpatient Critical access hospital [id number] [facility] 13:54:00 04:59:00 r B[facility] 2019-02-14 2019-02-15 Outpatient Critical access hospital [id number] [facility] 13:54:00 04:59:00 r [place] [address] [place] [address] 2019-02-14 2019-02-14 Outpatient Constantine [facility] [id number] 08:54:00 23:59:00 Sheri benavides 2019-02-14 2019-02-14 Outpatient MHSE MHSE [id number] MH 08:54:00 08:54:00 [facility] 2016-12-10 2016-12-11 [place] [id number] Mem[facility] 18:02:00 04:59:00 Services r Outpatient 00 l Imaging [facility] 2016-12-10 2016-12-11 [place] [id number] [facility] 18:02:00 04:59:00 Services r Outpatient 00 l Imaging [facility] 2016-12-10 2016-12-10 Outpatient Emelia Padilla MHOIP MHOIP [id number] 13:02:00 23:59:00 00 Results Test Description Test [...] 3267) cloudy Lab Interpretation (test code = 09290-1) Abnormal [facility]
[2022-09-15 20:30] LABS: Urine Blood Trace-intact (Negative); Urine Glucose 2+ (Negative); Urine Protein Trace (Negative); Urine pH 5.5 (5.0-7.0)
[2022-09-15 20:31] LABS: Absolute Lymphocytes (CBC) 1.5 K/uL (0.7-4.9); Lymphocytes % 22.6 % (15.3-44.8); MCV 86.2 fL (80-100); MPV 10.3 fL (7.6-11.3); RBC Red Blood Cell Count 4.87 M/uL (3.86-4.86)
[2022-09-15 20:46] LABS: Urine Bacteria <20 /HPF (<20); Urine Crystals Unidentified Few /HPF (None Seen); Urine Mucus Slight /HPF (None Seen); Urine WBC Clump Rare /HPF (None Seen)
[2022-09-15] MEDS ORDERED: FAMOTIDINE 20 MG/2 ML VIAL IV ONE (20:46)
[2022-09-15] MEDS ORDERED: ONDANSETRON 4 MG/2 ML VIAL ONE (20:46)
[2022-09-15] MEDS ORDERED: MORPHINE 4 MG/ML SYR ONE (20:46)
[2022-09-15 20:51] LABS: Albumin 3.4 g/dL (3.4-5.0); Bilirubin Total 0.4 mg/dL (0.2-1.0); Potassium 3.7 mmol/L (3.5-5.1); Protein, Total 7.3 g/dL (6.4-8.2)
--- NOTE | 2022-09-15 21:36 | RAD REPORT ---
EXAM DESCRIPTION: CTAbdomen Pelvis W Contrast - 09/15/2022 9:20 pm CLINICAL HISTORY: right sided abd pain/back pain COMPARISON: 08/17/2022 TECHNIQUE: CT of the abdomen and pelvis was performed. All CT scans are performed using dose optimization technique as appropriate and may include automated exposure control or mA/KV adjustment according to patient size. FINDINGS: Lower chest: No acute abnormality. Liver: Hepatic steatosis. Biliary: Cholecystectomy. Similar extrahepatic biliary ductal dilatation. Stomach: No significant focal abnormality. Duodenum: No significant focal abnormality. Pancreas: No significant abnormality. Spleen: No significant abnormality. Adrenal: Unchanged right adrenal nodule measuring 2.2 cm Kidney/ureter: No hydronephrosis. No renal calculi. Too small to characterize and/or benign appearing renal lesions are noted. Retroperitoneum: No retroperitoneal adenopathy. Vascular: No aneurysm. Mild atherosclerosis. Bowel: No significant focal abnormality. Peritoneum: No ascites or free air. Fat containing right lateral ventral hernia. Bladder: Trace bladder gas again identified. Reproductive: No adnexal masses. Bones: No acute fracture. Other: n/a IMPRESSION: No acute intra-abdominal or pelvic finding. Trace bladder gas which may be from instrume ntation. Correlate with urinalysis to exclude cystitis.
--- NOTE | 2022-09-15 21:43 | EDPHYS ---
Physician Documentation [facility] Name: Latoya Pfeiffer Age: 66 yrs Sex: Female : 1955 Arrival Date: 09/15/2022 Time: 18:08 Bed 25 Private MD: Hubert Fernández ED Physician Stalin Hernandez HPI: 09/15 20:23 This 66 yrs old Female presents to ER via Ambulatory with complaints of rn Epigastric Pain - radiating to right side. 20:23 The patient presents with abdominal pain in the epigastric area, in the right upper rn quadrant. 20:23 Onset: The symptoms/episode began/occurred 1 month(s) ago. The symptoms radiate to the rn right flank. Associated signs and symptoms: Pertinent positives: constipation, Pertinent negatives: blood in stools, chest pain, fever, vomiting, vomiting blood. The symptoms are described as sharp, stabbing. Modifying factors: The symptoms are alleviated by nothing, the symptoms are aggravated by touching the area. Severity of pain: At its worst the pain was moderate in the emergency department the pain is unchanged. The patient has experienced similar episodes in the past. The patient has not recently seen a physician. Pt reports RUQ and upper abd pain, began 1-1.5 months ago, seen here for this 1 month ago with neg blood and ct abdomen. Not planning on seeing GI until new year with new insurance. No blood in stool. No trauma. No fever. NO weight loss. Already had appendectomy/cholecystectomy/hysterectomy. Pain not worse or better. . Historical: - Allergies: 18:26 No Known Drug Allergies; ll1 - PMHx: 18:26 Hypertensive disorder; diabetes mellitus; SCIATIC NERVE PAIN; ll1 - PSHx: 18:26 Appendectomy; Cholecystectomy; hysterectomy; ll1 - Immunization history:: Client reports receiving the 2nd dose of the Covid vaccine. - Social history:: Smoking status: Patient denies any tobacco usage or history of. - Family history:: not pertinent. - Hospitalizations: : No recent hospitalization is reported. ROS: 20:23 Constitutional: Negative for fever, chills, and weight loss, Eyes: Negative for injury, rn pain, redness, and discharge, Neck: Negative for injury, pain, and swelling, Cardiovascular: Negative for chest pain, palpitations, and edema, Respiratory: Negative for shortness of breath, cough, wheezing, and pleuritic chest pain, Abdomen/GI: + RUQ and epigastric abd pain Back: Negative for injury and pain, : + dysuria MS/Extremity: Negative for injury and deformity, Skin: Negative for injury, rash, and discoloration, Neuro: Negative for headache, weakness, numbness, tingling, and seizure. Exam: 20:23 Constitutional: This is a well developed, well nourished patient who is awake, alert, rn and in no acute distress. Head/Face: Normocephalic, atraumatic. Cardiovascular: Regular rate and rhythm. No pulse deficits. Respiratory: No increased work of breathing, no retractions or nasal flaring. Abdomen/GI: soft, + tender epigastrium and RUQ, no peritoneal seigns, no masses Skin: Warm, dry MS/ Extremity: Pulses equal, no cyanosis. Neuro: Awake and alert, GCS 15 Vital Signs: 18:24 BP 161 / 102; Pulse 93; Resp 18; Temp 98.8; Pulse Ox 98% ; Weight 82.55 kg; Height 5 ll1 ft. 1 in. (154.94 cm); Pain 9/10; 20:39 BP 158 / 92; Pulse 80; Pulse Ox 99% on R/A; kl 18:24 Body Mass Index 34.39 (82.55 kg, 154.94 cm) ll1 MDM: 19:06 Patient medically screened. rn 21:41 Differential diagnosis: bowel obstruction, diverticulitis, gastritis, gastroesophageal rn reflux disease, non-specific abd pain, pancreatitis, Peptic Ulcer Disease, urinary tract infection. Data reviewed: vital signs, nurses notes, old medical records, lab test result(s), radiologic studies, CT scan, and as a result, I will discharge patient. Counseling: I had a detailed discussion with the patient and/or guardian regarding: the historical points, exam findings, and any diagnostic results supporting the discharge/admit diagnosis, lab results, radiology results, the need for outpatient follow up, to return to the emergency department if symptoms worsen or persist or if there are any questions or concerns that arise at home. Response to treatment: the patient's symptoms have mildly improved after treatment, and as a result, I will discharge patient. Special discussion: I discussed with the patient/guardian in detail that at this point there is no indication for admission to the hospital. It is understood, however, that if the symptoms persist or worsen the patient needs to return immediately for re-evaluation. Based on the history and exam findings, there is no indication for further emergent testing or inpatient evaluation. I discussed with the patient/guardian the need to see the manager software development for further evaluation of the symptoms. 09/15 19:06 Order name: CBC with Diff; Complete Time: 20:57 rn 09/15 19:06 Order name: CMP; Complete Time: 21:40 rn 09/15 19:06 Order name: Lipase; Complete Time: 21:40 rn 09/15 19:07 Order name: Urine Microscopic Only; Complete Time: 20:57 rn 09/15 20:30 Order name: Urine Dipstick-Ancillary; Complete Time: 20:57 EDNM 09/15 20:52 Order name: Urine Culture [facility] 09/15 19:06 Order name: CT Abd/Pelvis - IV Contrast Only; Complete Time: 21:40 rn 09/15 19:06 Order name: IV Saline Lock; Complete Time: 20:25 rn 09/15 19:06 Order name: Labs collected and sent; Complete Time: 20:25 rn 09/15 19:07 Order name: Urine Dipstick-Ancillary (obtain specimen); Complete Time: 20:25 rn Administered Medications: 20:30 Drug: Pepcid (famotidine) 20 mg Route: IVP; Site: right antecubital; kl 20:35 Drug: Zofran (Ondansetron) 4 mg Route: IVP; Site: right antecubital; kl 20:40 Drug: morphine 4 mg Route: IVP; Infused Over: 4 mins; Site: right antecubital; kl 20:58 CANCELLED (Duplicate Order): Insulin Regular Human 10 units Sub-Q once rn 21:15 Drug: NS 0.9% 1000 ml Route: IV; Rate: 1000 ml; Site: right antecubital; kl 23:00 Follow up: IV Status: Completed infusion; IV Intake: 1000ml kl 21:30 Drug: Insulin Regular Human 5 units {Co-Signature: em6 (Jie Torrez RN).} Route: kl Sub-Q; Site: right upper abdomen; 22:59 Drug: Cipro (ciprofloxacin) 500 mg Route: PO; kl Disposition Summary: 09/15/22 21:42 Discharge Ordered Location: Home rn Problem: an ongoing problem rn Symptoms: have improved rn Condition: Stable rn Diagnosis - Upper abdominal pain, unspecified rn - UTI/ Urinary tract infection, site not specified rn Followup: rn - With: Higinio Waldron MD - When: As needed - Reason: Recheck today's complaints, Re-evaluation by your physician Discharge Instructions: - Discharge Summary Sheet rn - Abdominal Pain, Adult rn - Urinary Tract Infection, Adult rn Forms: - Medication Reconciliation Form rn - Thank You Letter rn - Antibiotic discharge rn - Prescription Opioid Use rn Prescriptions: - Cipro 500 mg Oral Tablet - take 1 tablet by ORAL route every 12 hours for 7 days; 14 tablet; Refills: 0, rn Product Selection Permitted - Pepcid 20 mg Oral Tablet - take 1 tablet by ORAL route once daily; 30 tablet; Refills: 0, Product rn Selection Permitted Signatures: Dispatcher [employer] Leandra Thorpe RN RN kl Nieto, Roman, MD MD rn Lewis, Lynsay, RN RN ll1 Jie Torrez RN em6 Corrections: (The following items were deleted from the chart) 20:58 20:57 Insulin Regular Human 10 units Sub-Q once ordered. rn rn
--- NOTE | 2022-09-15 21:43 | ER ---
Nurse's Notes [facility] Name: Latoya Pfeiffer Age: 66 yrs Sex: Female : 1955 Arrival Date: 09/15/2022 Time: 18:08 Bed 25 Private MD: Hubert Fernández Diagnosis: Upper abdominal pain, unspecified;UTI/ Urinary tract infection, site not specified Presentation: 09/15 18:24 Chief complaint: Patient states: Epigastric/RUQ abd pain that wraps around to back for ll1 3-4 days. Some nausea. Urinary burning for 3-4 days. No fever. Coronavirus screen: Vaccine status: Patient reports receiving the 2nd dose of the covid vaccine. Client denies travel out of the [place] in the last 14 days. At this time, the client does not indicate any symptoms associated with coronavirus-19. Ebola Screen: Patient denies travel to an Ebola-affected area in the 21 days before illness onset. Initial Sepsis Screen: Does the patient meet any 2 criteria? HR > 90 bpm. No. Patient's initial sepsis screen is negative. Does the patient have a suspected source of infection? Yes: Acute abdominal pain. Risk Assessment: Do you want to hurt yourself or someone else? Patient reports no desire to harm self or others. Onset of symptoms was August 25, 2022. 18:24 Method Of Arrival: Ambulatory 1 18:24 Acuity: LUCINA 3 ll1 Triage Assessment: 18:26 General: Appears uncomfortable, ill, Behavior is calm, cooperative, appropriate for ll1 age. Pain: Complains of pain in abdomen Pain currently is 9 out of 10 on a pain scale. Quality of pain is described as aching, throbbing. GI: Reports upper abdominal pain, nausea. Historical: - Allergies: 18:26 No Known Drug Allergies; ll1 - PMHx: 18:26 Hypertensive disorder; diabetes mellitus; SCIATIC NERVE PAIN; ll1 - PSHx: 18:26 Appendectomy; Cholecystectomy; hysterectomy; ll1 - Immunization history:: Client reports receiving the 2nd dose of the Covid vaccine. - Social history:: Smoking status: Patient denies any tobacco usage or history of. - Family history:: not pertinent. - Hospitalizations: : No recent hospitalization is reported. Screenin:01 [facility] ED Fall Risk Assessment (Adult) History of falling in the last 3 months, kl including since admission No falls in past 3 months (0 pts) Confusion or Disorientation No (0 pts) Intoxicated or Sedated No (0 pts) Impaired Gait No (0 pts) Mobility Assist Device Used No (0 pt). Abuse screen: Denies threats or abuse. Nutritional screening: No deficits noted. Tuberculosis screening: No symptoms or risk factors identified. Assessment: 09/14 22:00 Reassessment: Patient appears in no apparent distress at this time. Patient and/or kl family updated on plan of care and expected duration. Pain level reassessed. Patient is alert, oriented x 3, equal unlabored respirations, skin warm/dry/pink. Patient states feeling better. Patient states symptoms have improved. Vital Signs: 09/15 18:24 BP 161 / 102; Pulse 93; Resp 18; Temp 98.8; Pulse Ox 98% ; Weight 82.55 kg; Height 5 ll1 ft. 1 in. (154.94 cm); Pain 9/10; 20:39 BP 158 / 92; Pulse 80; Pulse Ox 99% on R/A; kl 18:24 Body Mass Index 34.39 (82.55 kg, 154.94 cm) ll1 ED Course: 18:08 Patient arrived in ED. am2 18:08 Hubert Fernández MD is Private Physician. am2 18:26 Triage completed. ll1 18:26 Arm band placed on. ll1 19:06 Stalin Hernandez MD is Attending Physician. rn 20:25 Inserted saline lock: 20 gauge in right antecubital area, using aseptic technique. kl Blood collected. 20:25 CBC with Diff Sent. kl 20:25 CMP Sent. kl 20:25 Lipase Sent. kl 20:57 Notified ED physician of a critical lab result(s). blood sugar 452. kl 21:22 CT Abd/Pelvis - IV Contrast Only In Process Unspecified. EDMS 21:41 Higinio Waldron MD is Referral Physician. rn 23:02 Patient has correct armband on for positive identification. kl 23:02 No provider procedures requiring assistance completed. IV discontinued, intact, kl bleeding controlled, No redness/swelling at site. Pressure dressing applied. Administered Medications: 20:30 Drug: Pepcid (famotidine) 20 mg Route: IVP; Site: right antecubital; kl 20:35 Drug: Zofran (Ondansetron) 4 mg Route: IVP; Site: right antecubital; kl 20:40 Drug: morphine 4 mg Route: IVP; Infused Over: 4 mins; Site: right antecubital; kl 20:58 CANCELLED (Duplicate Order): Insulin Regular Human 10 units Sub-Q once rn 21:15 Drug: NS 0.9% 1000 ml Route: IV; Rate: 1000 ml; Site: right antecubital; kl 23:00 Follow up: IV Status: Completed infusion; IV Intake: 1000ml kl 21:30 Drug: Insulin Regular Human 5 units {Co-Signature: em6 (Jie Torrez RN).} Route: kl Sub-Q; Site: right upper abdomen; 22:59 Drug: Cipro (ciprofloxacin) 500 mg Route: PO; Medication: 23:02 VIS not applicable for this client. kl Intake: 23:00 IV: 1000ml; Total: 1000ml. Outcome: 21:42 Discharge ordered by . rn 23:02 Discharged to home ambulatory. kl 23:02 Condition: improved 23:02 Discharge instructions given to patient. 23:03 Patient left the ED. Signatures: Dispatcher [employer] Leandra Thorpe RN RN kl Nieto, Roman, MD MD rn Moreno, Amanda Xavi Lee RN RN ll1 Jie Torrez RN em6
[2022-09-15] MEDS ORDERED: INSULIN -REGULAR HUMAN 50 UNIT/0.5 ML ML ONE (21:53)
[2022-09-15] MEDS ORDERED: NA CHLORIDE 0.9% 1,000 ML ONE (21:54)
[2022-09-15 23:16] VITALS: TEMP 98.8
[2022-09-15 23:22] VITALS: BP 158/92; O2SAT 99
== END 2022-09-15 23:03 | disposition home or self-care (01) ==
LOC: ER 17:57
DX: N39.0 Urinary tract infection, site not specified (principal); E11.9 Type 2 diabetes mellitus without complications; I10 Essential (primary) hypertension
CPT/HCPCS: 87088; 85025; 87086; 36415; 83690; 80053; 74177; Q9967; J1815; J7030; J2405; 81003; 81015; 96361; 96372; 96374; 96375; 99284

== ENCOUNTER 2022-10-14 14:36 | Emergency (ER) | payer OTHER ==
--- OUTSIDE RECORDS SUMMARY | 2022-10-14 15:06 | XMS REPORT | Continuity of Care Document ---
:1955 Author Organization [facility] t Address [address] [place] [address] Care Team Providers Name Role Phone JENN JONAS Primary Care Physician Unavailable JENN JONAS Attending Clinician Unavailable Lab, Ang - Db Attending Clinician Unavailable Jenn Fuller Attending Clinician Doctor Unassigned, Numidia Attending Clinician Unavailable Maxim ESCALERA, Jaimie Holland Attending Clinician Unavailable APOLINAR MOORE Attending Clinician Unavailable Sheri Bee Attending Clinician Emelia Padilla Attending Clinician Payers Payer Name Policy Type Policy Number Effective Date Expiration Date [facility] [id number] 2016 00:00:00 Problems Condition Condition Condition Status [...] hepatitis 2-18 ity of C C 00:00: [place] screening screening 00 Medi pamela test test Branch Sleep Sleep Disease Active Univers disorder disorder 2-18 ity of 00:00: [place] [facility] Hemorrhagi Hemorrhagi Disease Active U nivers c cystitis c cystitis 2-18 it y of 00:00: [place] [facility] Overactive Overactive Disease Active U nivers bladder bladder 2-18 ity of 00:00: [place] 00 Medical Branch Encounter Encounter Disease Active Uni vers to to 2-18 ity of establish establish 00:00: [facility] care care 00 Medical Branch 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:00: [place]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, disorder, 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 Allergies, Adverse Reactions, Alerts Allergy Allergy Status Severity Reaction(s) Onset Inactive Treating Comm ents Source Name Type Date Date Clinician NO KNOWN Drug Active Univers ALLERGIE Class ity of [facility] Social History Social Habit Start Date Stop Date Quantity Comments Source Exposure to Not sure [facility] SARS-CoV-2 (event) Medica l [place] Tobacco use and 2020-02-27 2020-02-27 Never used [facility] exposure 00:00:00 00:00:00 Medical Branch Sex Ass[birth year] At [birth year] [facility] [place] 00:00:00 00:00:00 Medical Branch Smoking Status Start Date Stop Date Source Never smoker [facility] Medical Branch Medications Ordered Filled Start Stop Current Ordering Indication Dosage Frequency Signature Comments Components Source Medication Medication Date Date Medication? Clinician (SIG) Name Name citalopram Yes 40mg Take 40 mg U nivers (CELEXA) 40 2-18 by mouth ity of mg tablet 16:28: daily. [place] 46 Medical Branch zolpidem Yes 5mg Take 5 mg Univ ers (AMBIEN) 5 2-18 by mouth ity o f mg tablet 16:28: at bedtime [facility] 46 as needed Medical for Branch Insomnia. metFORMIN Yes 500mg Take 500 Uni vers (GLUCOPHAGE 2-18 mg by ity of ) 500 mg 16:28: mouth 2 [place] tablet 46 (two) Medical times Branch daily with meals. INSULN ASP Yes inject Unive rs PRT/INSULIN 2-18 under the ity of ASPART 16:28: skin. [place] (NOVOLOG 46 Medical MIX 70-30 Branch SC) atorvastati 2021- No [id number] 40mg Take 1 Univers n 40 mg 2-18 05-20 9101 tablet by ity of tablet 00:00: 04:59 mouth at [place] 00 :00 bedtime Medical for 90 Branch days. lisinopriL 2021- No [id number] 5mg Take 1 Univers 5 mg tablet 2-18 05-20 9101 tablet by it y of 00:00: 04:59 mouth [place] 00 :00 daily for Medical 90 days. Branch hydrOXYzine 2021- No [id number] 25mg Take 1 Univers 25 mg 2-18 04-20 tablet by ity of tablet 00:00: 04:59 mouth [place] 00 :00 every 6 Medical (six) Branch hours as needed for Itching (can take 2 before bed for insomnia) for up to 60 days. Nitrofurant 2021- No [id number] 100mg Take 1 Univers oin&Nit. 2-18 02-24 capsule by ity of [place] 00:00: 05:59 mouth [place] (MACROBID) 00 :00 every 12 Medic al 100 mg (twelve) Branch capsule hours for 5 days. traMADOL 50 Yes [id number] 50mg Take 1 Univers mg tablet 5-28 tablet by ity o f 00:00: mouth [place] 00 every 6 Medical (six) Branch hours as needed for Pain (scale 4-6). ondansetron No 8mg Take 1 Uni vers (ZOFRAN 6-19 -18 tablet by ity of ODT) 8 mg [...] 500mg Take 1 Un nhi in HCl 211-07 tablet by ity of (CIPRO) 500 00:00: 00:00 mouth 2 [place] mg tablet 00 :00 (two) Medical times Branch daily. Immunizations Ordered Filled Immunization Date Status Comments [facility] e Immunization Name Name Influenza Virus 2016-08-26 Completed [facility] y of Vaccine Quad IM 3+ 00:00:00 [facility] YRS Branch Pneumococcal 2016-08-26 Completed [place] o f Polysaccharide, 00:00:00 [facility] ical PPSV23 (PNEUMOVAX) Branch Vital Signs Vital Name Observation Time Observation Value Comments Source Body temperature 2021-11-07 14:28:00 36.72 [facility]ac[facility] Body height 2021-11-07 14:28:[address] [facility] Body weight 2021-11-07 14:28:[address] [facility] BMI 2021-11-07 14:28:00 36.33 kg/m2 [facility] Oxygen saturation in 2021-11-07 14:28:00 97 /min [facility] Arterial blood by [facility] Pulse oximetry Branch Systolic blood 2021-11-07 14:28:00 149 mm[Hg] Univer sity of pressure [facility] Diastolic blood 2021-11-07 14:28:00 80 mm[Hg] Unive rsity of pressure [facility] Heart rate 2021-11-07 14:28:00 70 /min [facility] Procedures Procedure Date / Time Performed Performing Clinician Sourc e POCT URINALYSIS 2021-11-07 14:38:00 Jenn Jonas [place] o f [facility] Encounters Start End Encounter Admission Attending Care Care Encounter Source Date/Time Date/Time Type Type Clinicians Facility Department ID 2021-12-05 2021-12-05 Outpatient R SUMI [facility] [id number] Univers 09:30:00 09:30:00 JENN ab [facility] 2021-11-07 2021-11-07 [employer] [facility], Ang - Db [facility] [id number] Univers 09:30:00 10:07:16 Visit Jenn Jonas [facility] [id number] anirudh [facility] [id number] Nathan as LUANA?BLEA [id number] [place] [address] MEDICAL OFFICE BUILDING 2021-11-07 2021-11-07 Outpatient R SUMI [facility] [id number] Univers 08:00:00 09:31:42 JENN oleary [facility] 2021-11-07 2021-11-07 Office Sumi [facility] [id number] Univers 08:00:00 09:31:42 Visit Jenn [facility] [id number] it y [facility] [id number] Nathan as LUANA?BLEA [phone] [address] MEDICAL OFFICE BUILDING 2021-11-07 2021-11-07 Outpatient R SUMI [facility] [id number] Univers 09:30:00 09:30:00 JENN oleary [facility] 2021-11-07 2021-11-07 Orders Doctor MOSS [id number] Univers 00:00:00 00:00:00 Only Unassigned, JUAN C [id number] ity [facility] [id number] Nathan as [phone] [address] 2020-02-29 2020-02-29 Telephone AJAY Pan [id number] 00:00:00 00:00:00 Jaimie IRIZARRY [id number] [facility] [id number] 2020-02-27 2020-02-27 Outpatient Royce MOORE [facility] [id number] [facility] 14:00:00 14:00:00 REENU ity [facility] 2019-02-14 2019-02-15 Outpatient nullFlavo [facility] [id number] [facility] 13:54:00 04:59:00 royce [facility] 2019-02-14 2019-02-15 Outpatient nullFlavo [facility] [id number] [facility] 13:54:00 04:59:00 royce [facility] 2019-02-14 2019-02-14 Outpatient Constantine [facility]SE MHSE [id number] 08:54:00 23:59:00 Kianna benavidesroyce Evans 2019-02-14 2019-02-14 Outpatient MHSE MHSE [id number] 08:54:00 08:54:00 [facility] toro [facility] 2016-12-10 2016-12-11 [place] [id number] [facility] 18:02:00 04:59:00 Services r Outpatient 00 l Imaging [facility] [facility] 2016-12-10 2016-12-11 [place] [id number] [facility] 18:02:00 04:59:00 Services r Outpatient 00 l Imaging [facility] 2016-12-10 2016-12-10 Outpatient Emelia Padilla MHOIP MHOIP [id number] 13:02:00 23:59:00 00 Results Test Description Test [...] 3267) cloudy Lab Interpretation (test code = 90987-0) Abnormal [facility]
[2022-10-14 15:10] LABS: Absolute Lymphocytes (CBC) 1.1 K/uL (0.7-4.9); Hematocrit 44.3 % (36.0-45.0); Lymphocytes % 16.2 % (15.3-44.8); MCV 88.3 fL (80-100); MPV 11.7 fL (7.6-11.3); RBC Red Blood Cell Count 5.01 M/uL (3.86-4.86)
[2022-10-14 15:32] LABS: Albumin 3.1 g/dL (3.4-5.0); Bilirubin Total 0.5 mg/dL (0.2-1.0); Magnesium 1.6 mg/dL (1.6-2.4); Potassium 3.9 mmol/L (3.5-5.1); Protein, Total 7.1 g/dL (6.4-8.2)
--- NOTE | 2022-10-14 15:47 | RAD REPORT ---
EXAM DESCRIPTION: RAD - Chest Single View - 10/14/2022 3:40 pm CLINICAL HISTORY: CHEST PAIN Chest pain. COMPARISON: Chest Single View dated 05/28/2022; Chest Single View dated 08/11/2020; Chest Single View dated 10/23/2019; Chest Pa And Lat (2 Views) dated 09/25/2019 FINDINGS: Portable technique limits examination quality. The lungs are grossly clear. The heart is normal in size. No displaced fractures. IMPRESSION: No acute intrathoracic process suspected.
[2022-10-14] MEDS ORDERED: ONDANSETRON 4 MG/2 ML VIAL ONE (16:34)
[2022-10-14] MEDS ORDERED: NA CHLORIDE 0.9% 1,000 ML ONE ×2 (16:35→17:25)
--- NOTE | 2022-10-14 18:33 | ER ---
Nurse's Notes [facility] Name: Latoya Pfeiffer Age: 67 yrs Sex: Female : 1955 Arrival Date: 10/14/2022 Time: 14:37 Bed Treatment Private MD: Diagnosis: Hyperglycemia, unspecified Presentation: 10/14 14:44 Chief complaint: Patient states: n/v , right and pain since this morning, got worse 30 iw minutes ago and felt like she was going to pass out. Coronavirus screen: Client presents with at least one sign or symptom that may indicate coronavirus-19. Ebola Screen: Patient negative for fever greater than or equal to 101.5 degrees Fahrenheit, and additional compatible Ebola Virus Disease symptoms Patient denies exposure to infectious person. Patient denies travel to an Ebola-affected area in the 21 days before illness onset. No symptoms or risks identified at this time. Initial Sepsis Screen: Does the patient meet any 2 criteria? No. Patient's initial sepsis screen is negative. Does the patient have a suspected source of infection? No. Patient's initial sepsis screen is negative. Risk Assessment: Do you want to hurt yourself or someone else? Patient reports no desire to harm self or others. Onset of symptoms was October 14, 2022. 14:44 Method Of Arrival: Wheelchair iw 14:44 Acuity: LUCINA 3 iw Triage Assessment: 19:12 General: Appears in no apparent distress. Behavior is calm, cooperative. GI: Reports iw nausea. Historical: - Allergies: 14:46 No Known Allergies; iw - PMHx: 14:46 diabetes mellitus; Hypertensive disorder; SCIATIC NERVE PAIN; iw - PSHx: 14:46 Cholecystectomy; Appendectomy; hysterectomy; iw - Family history:: not pertinent. Screenin:11 [facility] ED Fall Risk Assessment (Adult) Score/Fall Risk Level 0 - 2 = Low Risk. Abuse iw screen: Denies threats or abuse. Denies injuries from another. Nutritional screening: No deficits noted. Tuberculosis screening: No symptoms or risk factors identified. Assessment: 19:11 Reassessment: Patient appears in no apparent distress at this time. Patient and/or iw family updated on plan of care and expected duration. Pain level reassessed. Patient is alert, oriented x 3, equal unlabored respirations, skin warm/dry/pink. Vital Signs: 14:44 BP 141 / 83; Pulse 85; Resp 16; Temp 98.6; Pulse Ox 98% on R/A; Weight 78.47 kg; Height iw 5 ft. 0 in. (152.40 cm); 14:44 Body Mass Index 33.79 (78.47 kg, 152.40 cm) iw ED Course: 14:37 Patient arrived in ED. am2 14:39 Darwin Alcazar MD is Attending Physician. rt 14:46 Triage completed. iw 14:46 Arm band placed on. iw 15:03 Inserted saline lock: 20 gauge in left antecubital area, using aseptic technique. iw 15:39 Notified ED physician of a critical lab result(s). Glucose - 569. ld1 15:42 Chest Single View XRAY In Process Unspecified. EDMS 16:25 Di Bills, RN is Primary Nurse. iw 19:12 No provider procedures requiring assistance completed. IV discontinued, intact, iw bleeding controlled, No redness/swelling at site. Pressure dressing applied. Administered Medications: 17:23 Drug: NS 0.9% 1000 ml Route: IV; Rate: 1 bolus; Site: right antecubital; iw 18:30 Follow up: IV Status: Completed infusion iw 17:23 Drug: Zofran (Ondansetron) 4 mg Route: IVP; Site: right antecubital; iw 18:00 Follow up: Response: No adverse reaction iw 17:27 Drug: NS 0.9% 1000 ml Route: IV; Rate: 1 bolus; Site: right antecubital; jl7 18:50 Follow up: IV Status: Completed infusion iw Outcome: 18:33 Discharge ordered by . rt 19:12 Discharged to home via wheelchair. iw 19:12 Condition: good 19:12 Discharge instructions given to patient, Instructed on discharge instructions, follow up and referral plans. Demonstrated understanding of instructions, follow-up care, medications, Prescriptions given X 1. 19:12 Patient left the ED. iw Signatures: Dispatcher [employer] EDMS Di Bills, RN LALI iw Tomasa Crow RN RN jl7 Jessenia Johnson am2 Mari Lui RN RN ld1 Darwin Alcazar MD MD rt
--- NOTE | 2022-10-14 18:33 | EDPHYS ---
Physician Documentation [facility] Name: Latoya Pfeiffer Age: 67 yrs Sex: Female : 1955 Arrival Date: 10/14/2022 Time: 14:37 Bed Treatment Private MD: ROLANDO Physician Darwin Alcazar HPI: 10/14 15:39 This 67 yrs old Female presents to ER via Wheelchair with complaints of rt Nausea, Doesn't Feel Right. 15:39 The patient presents to the emergency department with nausea, vomiting. Onset: The rt symptoms/episode began/occurred 1 hour(s) ago. Patient presents to the ED with nausea, vomiting starting about 1 hour prior to arrival. Patient states that her blood sugar went up to over 400. She reports fatigue, denies other acute complaints at this time. Symptoms are moderate in severity, no other aggravating or alleviating factors.. Historical: - Allergies: 14:46 No Known Allergies; iw - PMHx: 14:46 diabetes mellitus; Hypertensive disorder; SCIATIC NERVE PAIN; iw - PSHx: 14:46 Cholecystectomy; Appendectomy; hysterectomy; iw - Family history:: not pertinent. ROS: 15:39 Constitutional: Negative for fever, chills, and weight loss, Eyes: Negative for injury, rt pain, redness, and discharge, Neck: Negative for injury, pain, and swelling, Cardiovascular: Negative for chest pain, palpitations, and edema, Respiratory: Negative for shortness of breath, cough, wheezing, and pleuritic chest pain, MS/Extremity: Negative for injury and deformity, Skin: Negative for injury, rash, and discoloration, Neuro: Negative for headache, weakness, numbness, tingling, and seizure, Psych: Negative for depression, anxiety, suicide ideation, homicidal ideation, and hallucinations. 15:39 Abdomen/GI: Positive for nausea and vomiting, Negative for abdominal pain. 15:39 Endocrine: Positive for polydipsia, polyuria. Exam: 15:39 Constitutional: This is a well developed, well nourished patient who is awake, alert, rt and in no acute distress. Head/Face: Normocephalic, atraumatic. Neck: Trachea midline, no thyromegaly or masses palpated, and no cervical lymphadenopathy. Supple, full range of motion without nuchal rigidity, or vertebral point tenderness. No Meningismus. Chest/axilla: Normal chest wall appearance and motion. Nontender with no deformity. No lesions are appreciated. Cardiovascular: Regular rate and rhythm with a normal S1 and S2. No gallops, murmurs, or rubs. Normal PMI, no JVD. No pulse deficits. Respiratory: Lungs have equal breath sounds bilaterally, clear to auscultation and percussion. No rales, rhonchi or wheezes noted. No increased work of breathing, no retractions or nasal flaring. Abdomen/GI: Soft, non-tender, with normal bowel sounds. No distension or tympany. No guarding or rebound. No evidence of tenderness throughout. Skin: Warm, dry with normal turgor. Normal color with no rashes, no lesions, and no evidence of cellulitis. MS/ Extremity: Pulses equal, no cyanosis. Neurovascular intact. Full, normal range of motion. Neuro: Awake and alert, GCS 15, oriented to person, place, time, and situation. Cranial nerves II-XII grossly intact. Motor strength 5/5 in all extremities. Sensory grossly intact. Cerebellar exam normal. Normal gait. Psych: Awake, alert, with orientation to person, place and time. Behavior, mood, and affect are within normal limits. 15:39 ENT: Dry mucous membranes. Vital Signs: 14:44 BP 141 / 83; Pulse 85; Resp 16; Temp 98.6; Pulse Ox 98% on R/A; Weight 78.47 kg; Height iw 5 ft. 0 in. (152.40 cm); 14:44 Body Mass Index 33.79 (78.47 kg, 152.40 cm) iw MDM: 15:03 Patient medically screened. rt 18:34 Differential diagnosis: Hyperglycemia, DKA, appendicitis, cholecystitis. Data reviewed: rt vital signs, nurses notes, lab test result(s), EKG. I considered the following discharge prescriptions or medication management in the emergency department Medications were administered in the Emergency Department. See MAR. Historians other than the Patient: Daughter/Son: Discussed patient's history with family. External Records Reviewed:. Care significantly affected by the following chronic conditions: Diabetes. Response to treatment: the patient's symptoms have markedly improved after treatment. ED course: Patient presents to the ED with nausea, not feeling well. The patient has a benign abdominal examination, does not require advanced imaging of the abdomen. Patient with hyperglycemia without evidence of DKA. Symptoms have significantly proved with nausea meds, IV fluids, blood sugar has significantly improved as well. She does not require admission at this time, return precautions discussed.. 10/14 14:39 Order name: glucometer results - FOR PT WITH NO ID; Complete Time: 14:52 iw 10/14 14:54 Order name: CBC with Diff; Complete Time: 15:48 rt 10/14 14:54 Order name: CMP; Complete Time: 15:55 rt 10/14 14:54 Order name: Lipase; Complete Time: 15:55 rt 10/14 14:54 Order name: Magnesium; Complete Time: 15:55 rt 10/14 14:54 Order name: Troponin High Sensitivity; Complete Time: 15:55 rt 10/14 14:54 Order name: EKG; Complete Time: 14:55 rt 10/14 14:54 Order name: EKG - Nurse/Tech; Complete Time: 17:47 rt 10/14 14:54 Order name: Chest Single View XRAY; Complete Time: 15:48 rt 10/14 18:42 Order name: Glucose, Ancillary Testing; Complete Time: 18:57 EDMS Administered Medications: 17:23 Drug: NS 0.9% 1000 ml Route: IV; Rate: 1 bolus; Site: right antecubital; iw 18:30 Follow up: IV Status: Completed infusion iw 17:23 Drug: Zofran (Ondansetron) 4 mg Route: IVP; Site: right antecubital; iw 18:00 Follow up: Response: No adverse reaction iw 17:27 Drug: NS 0.9% 1000 ml Route: IV; Rate: 1 bolus; Site: right antecubital; jl7 18:50 Follow up: IV Status: Completed infusion iw Disposition Summary: 10/14/22 18:33 Discharge Ordered Location: Home rt Problem: an acute exacerbation rt Symptoms: have improved rt Condition: Stable rt Diagnosis - Hyperglycemia, unspecified rt Followup: rt - With: Private Physician - When: Tomorrow - Reason: Discharge Instructions: - Discharge Summary Sheet rt - Hyperglycemia rt Forms: - Medication Reconciliation Form rt - Thank You Letter rt - Antibiotic Education rt - Prescription Opioid Use rt Prescriptions: - ondansetron 4 mg Oral - take 4 milligrams by SUBLINGUAL route every 8 hours; 15 tablet; Refills: 0, rt Product Selection Permitted Signatures: Dispatcher [employer] Di Long, RN RN Tomasa Lee RN RN jl7 Darwin Alcazar MD MD rt
[2022-10-14 19:26] VITALS: BP 141/83; TEMP 98.6; O2SAT 98
== END 2022-10-14 19:12 | disposition home or self-care (01) ==
LOC: ER 14:36
DX: E11.65 Type 2 diabetes mellitus with hyperglycemia (principal); I10 Essential (primary) hypertension
CPT/HCPCS: 85025; 36415; 83735; 82947 ×2; 84484; 83690; 80053; 71045; J7030 ×2; J2405

== ENCOUNTER 2024-12-17 20:10 | Emergency (ER) | payer OTHER ==
[2024-12-17] MEDS ORDERED: methocarbamoL 750 MG TAB ONE (21:13)
[2024-12-17] MEDS ORDERED: HYDROCODONE/APAP 7.5/325 MG TAB ONE (21:13)
--- NOTE | 2024-12-17 21:19 | RAD REPORT ---
EXAMINATION: Pelvis CLINICAL INDICATION: Female, 69 years old. PAIN COMPARISON: No prior exam. FINDINGS: No acute fracture. No malalignment/dislocation. No significant focal degenerative change. Other: n/a IMPRESSION: No acute osseous abnormality.
--- NOTE | 2024-12-17 21:19 | RAD REPORT ---
EXAMINATION: Femur Left CLINICAL INDICATION: Female, 69 years old. PAIN COMPARISON: No prior exam. VIEWS: As above IMPRESSION: No acute fracture of the left femur.
--- NOTE | 2024-12-17 21:21 | RAD REPORT ---
EXAMINATION: Tib Fib Left CLINICAL INDICATION: Female, 69 years old. PAIN COMPARISON: No prior exam. VIEWS: As above IMPRESSION: No acute fracture of the tibia or fibula. No acute soft tissue abnormality.
--- NOTE | 2024-12-17 21:22 | RAD REPORT ---
EXAM: Foot Left 3 View HISTORY: PAIN COMPARISON: None FINDINGS: Bones: Nondisplaced fracture at the fifth proximal phalanx with extension to the fifth MTP joint. Alignment:No significant malalignment. Degenerative changes:Plantar aspect calcaneal spurs. Other: n/a IMPRESSION: Nondisplaced fifth proximal phalanx fracture with extension to the MTP joint..
[2024-12-17 21:26] LABS: Specific Gravity 1.027 (1.005-1.030); Sqamous Epithelial <5 /HPF (None Seen); Urine Bacteria <20 /HPF (<20); Urine Bilirubin NEGATIVE (Negative); Urine Blood Trace (Negative); Urine Clarity Extremely Turbid (Clear); Urine Color Yellow (Yellow); Urine Crystals Unidentified Few /HPF (None Seen); Urine Culture Reflex Order REFLEXED; Urine Glucose 4+ (Over) (Negative); Urine Ketones NEGATIVE (Negative); Urine Micro Reflex YN NO BILL MICROSCOPIC; Urine Mucus Slight /HPF (None Seen); Urine Nitrite NEGATIVE (Negative); Urine Protein 1+ (Negative); Urine Urobilinogen Normal (Normal); Urine WBC >50 /HPF (<5); Urine WBC Clump Occasional /HPF (None Seen); Urine Yeast (Budding) Trace /HPF (None Seen); Urine pH 5.5 (5.0-7.0)
--- NOTE | 2024-12-17 21:29 | RAD REPORT ---
EXAM: Lower Extremity Artery Uni Ltd HISTORY: PAIN COMPARISON: None TECHNIQUE: Multiplanar grayscale and color Doppler images were obtained and a left lower extremity ar terial ultrasound. Spectral analysis of the Doppler waveforms were performed. FINDINGS: Left lower extremity: Common femoral artery: Triphasic Superficial femoral artery: Triphasic Popliteal artery: Triphasic Posterior tibial artery: Triphasic Dorsalis pedis artery: Triphasic IMPRESSION: No significant arterial abnormality in the left lower extremity.
--- NOTE | 2024-12-17 21:32 | RAD REPORT ---
Extremity Venous Uni Ltd CLINICAL INDICATION: Female, 69 years old.PAIN TECHNIQUE: Complete duplex sonography of the lower extremity veins was performed of the affected limb . The examination included compression for vein patency, color Doppler imaging and flow augmentation in response to distal compression of the distal external iliac, common femoral, femoral, popliteal, peroneal, tibial and great saphenous veins. [id number]. COMPARISON: No prior exams FINDINGS: Duplex sonography imaging demonstrates all deep veins examined to be fully compressible with spontane ous, phasic and augmented flow in the affected limb. IMPRESSION: No evidence of deep venous thrombosis in the left lower extremity.
[2024-12-17] MEDS ORDERED: LIDOCAINE 1% MPF 2 ML AMPULE ONE (21:50)
[2024-12-17] MEDS ORDERED: CEFTRIAXONE 1000 MG/VIAL ONE (21:50)
[2024-12-17] MEDS ORDERED: INSULIN REGULAR (HUMAN) 100 UNIT/ML ONE (21:50)
[2024-12-17] MEDS ORDERED: FENTANYL CITR 100 MCG/2 ML ONE (22:03)
--- NOTE | 2024-12-17 22:42 | ER ---
Nurse's Notes [facility] Name: Latoya Pfeiffer Age: 69 yrs Sex: Female : 1955 Arrival Date: 12/17/2024 Time: 20:10 Bed 20 Private MD: Diagnosis: Lumbago with sciatica, left side;UTI/ Urinary tract infection, site not specified;Nondisplaced fracture of proximal phalanx of left lesser toe(s)-left small toe Presentation: 12/17 20:19 Chief complaint: Patient states: I fell Wednesday and hurt my left ankle and I have a bm8 terrible pain in my upper thigh. Coronavirus screen: At this time, the client does not indicate any symptoms associated with coronavirus-19. Ebola Screen: Patient negative for fever greater than or equal to 101.5 degrees Fahrenheit, and additional compatible Ebola Virus Disease symptoms Patient denies exposure to infectious person. Patient denies travel to an Ebola-affected area in the 21 days before illness onset. No symptoms or risks identified at this time. Initial Sepsis Screen: Does the patient meet any 2 criteria? No. Patient's initial sepsis screen is negative. Does the patient have a suspected source of infection? No. Patient's initial sepsis screen is negative. Risk Assessment: Do you want to hurt yourself or someone else? Patient reports no desire to harm self or others. Onset of symptoms was December 11, 2024. 20:19 Method Of Arrival: Ambulatory 8 20:19 Acuity: LUCINA 3 bm8 Triage Assessment: 20:20 General: Appears distressed, uncomfortable, Behavior is cooperative, appropriate for bm8 age, anxious. Pain: Complains of pain in left leg Pain currently is 10 out of 10 on a pain scale. Quality of pain is described as aching, crampy, throbbing. EENT: No deficits noted. No signs and/or symptoms were reported regarding the EENT system. Neuro: No deficits noted. Level of Consciousness is awake, alert, obeys commands, Oriented to person, place, time, situation, Appropriate for age. Cardiovascular: Denies chest pain, Capillary refill < 3 seconds in bilateral fingers Patient's skin is warm and dry. Respiratory: Airway is patent Respiratory effort is even, unlabored, Respiratory pattern is regular, symmetrical. Musculoskeletal: Circulation, motion, and sensation intact. Capillary refill < 3 seconds, in bilateral fingers. toes. Swelling present in left leg Tenderness present in left leg Reports pain in left lateral ankle, left medial ankle and left quadriceps Pain is 10 out of 10 on a pain scale. Historical: - Allergies: 20:20 No Known Allergies; bm8 - Home Meds: 20:20 Unable to obtain [Active]; bm8 - PMHx: 20:20 diabetes mellitus; Hypertensive disorder; SCIATIC NERVE PAIN; bm8 - PSHx: 20:20 Appendectomy; Cholecystectomy; hysterectomy; right knee sx (hysterectomy); bm8 - Immunization history:: Adult Immunizations up to date. - Infectious Disease History:: Denies. - Social history:: Smoking status: Patient denies any tobacco usage or history of. Screenin:28 [facility] ED Fall Risk Assessment (Adult) History of falling in the last 3 months, bm8 including since admission Yes- physiologic fall (2 pts) Confusion or Disorientation No (0 pts) Intoxicated or Sedated Impaired Gait Yes (1 pt) Mobility Assist Device Used Yes (1 pt) Altered Elimination No (0 pt) Score/Fall Risk Level 3 or more points = High Risk Oriented to surroundings, Maintained a safe environment, Educated pt \T\ family on fall prevention, incl call for assistance when getting out of bed, Assessed \T\ reinforced patient's understanding of fall precautions, Hourly rounding (assess needs \T\ fall precautionary measures) done, Used ambulatory aids as needed (educated on \T\ assisted with), Used gait belt as appropriate Implemented a Fall Risk Plan of Care. Abuse screen: Denies threats or abuse. Nutritional screening: No deficits noted. Tuberculosis screening: No symptoms or risk factors identified. Assessment: 20:28 Reassessment: see triage assessment. bm8 Vital Signs: 20:19 BP 158 / 75; Pulse 88; Resp 18; Temp 98.4; Pulse Ox 95% ; Weight 85.28 kg; Height 5 ft. bm8 0 in. ; Pain 10/10; 21:30 BP 182 / 85; Pulse 75; Resp 18; Pulse Ox 100% ; cp4 22:35 BP 116 / 87; Pulse 72; Resp 18; Pulse Ox 97% ; cp4 20:19 Body Mass Index 36.72 (85.28 kg, 152.4 cm) bm8 20:19 Pain Scale: Adult bm8 Ulmer Coma Score: 20:28 Eye Response: spontaneous(4). Motor Response: obeys commands(6). Verbal Response: bm8 oriented(5). Total: 15. ED Course: 20:18 Patient arrived in ED. gm2 20:19 Brien Coyne, RN is Primary Nurse. bm8 20:20 Triage completed. bm8 20:20 Sriram Robertson PA is PHCP. cp 20:20 Hubert Gonzalez MD is Attending Physician. cp 20:20 Arm band placed on left wrist. bm8 20:28 Patient has correct armband on for positive identification. Bed in low position. Call bm8 light in reach. Side rails up X 1. Adult w/ patient. Client placed on continuous cardiac and pulse oximetry monitoring. NIBP monitoring applied. Pulse ox on. NIBP on. Door closed. Noise minimized. Pillow given. Verbal reassurance given. Head of bed elevated. 20:28 No provider procedures requiring assistance completed. Patient maintains SpO2 bm8 saturation greater than 95% on room air. 21:10 US Lower Extremity Artery Uni Ltd In Process Unspecified. EDMS 21:10 US Extremity Venous Unilateral Ltd In Process Unspecified. EDMS 21:12 XRAY Foot LEFT 3 View In Process Unspecified. EDMS 21:12 XRAY Tib Fib LEFT In Process Unspecified. EDMS 21:12 XRAY Femur LEFT In Process Unspecified. EDMS 21:12 XRAY Pelvis In Process Unspecified. EDMS 23:03 Provided Education on: toe fracture and uti.. cp4 23:03 Patient did not have IV access during this emergency room visit. cp4 Administered Medications: 21:17 Drug: Methocarbamol PO 750 mg PO once Route: PO; cp4 21:39 Follow up: Response: No adverse reaction; Pain is decreased cp4 21:17 Drug: Hydrocodone-Acetaminophen PO (7.5 mg-325 mg) 1 tabs PO once; RASS on ADMIN: cp4 Combtv4, Very Agttd3, Agttd2, Rstlss1, AlertClm0, Drwsy-1, Lt Sdtn-2, Mod Sdtn-3, Dp Sdtn-4, UnArsble-5 Route: PO; 21:39 Follow up: Response: No adverse reaction; Pain is decreased cp4 21:55 Drug: Insulin Regular Human Sub-Q 10 units Sub-Q once {Co-Signature: rg5 (nhan Klein RN).} Route: Sub-Q; Site: right upper arm; 22:11 Follow up: Response: No adverse reaction cp4 21:56 Drug: Rocephin (cefTRIAXone) IM 1 grams IM once Route: IM; Site: right ventrogluteal; cp4 22:11 Follow up: Response: No adverse reaction cp4 22:10 Drug: fentaNYL (PF) IM 25 mcg IM once Route: IM; Site: right ventrogluteal; cp4 23:04 Follow up: Response: No adverse reaction cp4 Medication: 20:28 VIS not applicable for this client. bm8 Outcome: 22:42 Discharge ordered by MD. cp 23:03 Discharged to home via wheelchair, cp4 23:03 Condition: stable 23:03 Discharge instructions given to patient, family, Instructed on discharge instructions, follow up and referral plans. medication usage, Demonstrated understanding of instructions, follow-up care, medications, Prescriptions given X 3, 23:04 Patient left the ED. cp4 Signatures: Dispatcher [employer] EDMS Sriram Robertson PA PA cp Potter, Christina cp4 Susan Stokes 2 Brien Coyne RN RN bm8 Catrachito Klein RN rg5
--- NOTE | 2024-12-17 22:42 | EDPHYS ---
Physician Documentation [facility] Name: Latoya Pfeiffer Age: 69 yrs Sex: Female : 1955 Arrival Date: 12/17/2024 Time: 20:10 Bed 20 Private MD: ED Physician Hubert Gonzalez HPI: 12/17 20:45 This 69 yrs old Female presents to ER via Ambulatory with complaints of Leg cp Pain. 20:45 The patient presents with pain, that is chronic. The complaints affect the left hip and cp left leg. 20:45 Context: Patient is a 69-year-old female who presents to the emergency department with cp complaints of worsening left low back and left leg pain. Patient reports she has been having this pain for a while and she has had a recent MRI that shows she has left hip bursitis. She reports the pain in her left leg caused it to give out, causing her to fall this past Wednesday in which she injured her left foot. Historical: - Allergies: 20:20 No Known Allergies; bm8 - Home Meds: 20:20 Unable to obtain [Active]; bm8 - PMHx: 20:20 diabetes mellitus; Hypertensive disorder; SCIATIC NERVE PAIN; bm8 - PSHx: 20:20 Appendectomy; Cholecystectomy; hysterectomy; right knee sx (hysterectomy); bm8 - Immunization history:: Adult Immunizations up to date. - Infectious Disease History:: Denies. - Social history:: Smoking status: Patient denies any tobacco usage or history of. ROS: 20:50 Constitutional: Negative for body aches, chills, fever, poor PO intake, cp 20:50 Eyes: Negative for injury, pain, redness, and discharge, cp 20:50 ENT: Negative for drainage from ear(s), ear pain, sore throat, difficulty swallowing, cp difficulty handling secretions, 20:50 Cardiovascular: Negative for chest pain, edema, palpitations, 20:50 Respiratory: Negative for cough, shortness of breath, wheezing, 20:50 Abdomen/GI: Negative for abdominal pain, nausea, vomiting, and diarrhea, 20:50 Back: Positive for pain at rest, pain with movement, of the left low back, 20:50 MS/extremity: Positive for pain, of the left foot and left leg, 20:50 Neuro: Negative for altered mental status, dizziness, headache, numbness, weakness, 20:50 All other systems are negative, Exam: 20:55 Constitutional: The patient appears in no acute distress, alert, awake, cp non-diaphoretic, non-toxic, well developed, well nourished, uncomfortable, 20:55 Head/Face: Normocephalic, atraumatic. cp 20:55 Eyes: Periorbital structures: appear normal, Conjunctiva: normal, no exudate, no injection, Sclera: no appreciated abnormality, Lids and lashes: appear normal, bilaterally, 20:55 ENT: External ear(s): are unremarkable, Nose: is normal, Mouth: Lips: moist, Oral mucosa: moist, Posterior pharynx: Airway: no evidence of obstruction, patent, 20:55 Neck: ROM/movement: is normal, is supple, without pain, no range of motions limitations, 20:55 Chest/axilla: Inspection: normal, Palpation: is normal, no crepitus, no tenderness, cp 20:55 Cardiovascular: Rate: normal, Rhythm: regular, Edema: is not appreciated, JVD: is not appreciated, 20:55 Respiratory: the patient does not display signs of respiratory distress, Respirations: normal, no use of accessory muscles, no retractions, labored breathing, is not present, Breath sounds: are clear throughout, no decreased breath sounds, no stridor, no wheezing, 20:55 Abdomen/GI: Inspection: abdomen appears normal, Bowel sounds: active, all quadrants, Palpation: soft, in all quadrants, nontender, in all quadrants, 20:55 Back: pain, that is severe, of the left low back, ROM is painful, with all movement, 20:55 Musculoskeletal/extremity: Extremities: noted in the left leg: pain, tenderness, noted in the left foot: ecchymosis, tenderness, 20:55 Neuro: Orientation: to person, place \T\ time. Mentation: is normal, Motor: moves all fours, strength is normal, Sensation: no obvious gross deficits, Vital Signs: 20:19 BP 158 / 75; Pulse 88; Resp 18; Temp 98.4; Pulse Ox 95% ; Weight 85.28 kg; Height 5 ft. bm8 0 in. ; Pain 10/10; 21:30 BP 182 / 85; Pulse 75; Resp 18; Pulse Ox 100% ; cp4 22:35 BP 116 / 87; Pulse 72; Resp 18; Pulse Ox 97% ; cp4 20:19 Body Mass Index 36.72 (85.28 kg, 152.4 cm) bm8 20:19 Pain Scale: Adult bm8 [place] Coma Score: 20:28 Eye Response: spontaneous(4). Motor Response: obeys commands(6). Verbal Response: bm8 oriented(5). Total: 15. MDM: 20:29 Medical Screening Exam initiated cp 22:41 Data reviewed: vital signs, nurses notes, lab test result(s), radiologic studies, CT cp scan, plain films, and as a result, I will discharge patient. 22:41 Differential diagnosis: dislocation, closed fracture, contusion. I considered the cp following discharge prescriptions or medication management in the emergency department Medications were administered in the Emergency Department. See MAR. Care significantly affected by the following chronic conditions: Diabetes, Hypertension. Counseling: I had a detailed discussion with the patient and/or guardian regarding the historical points, exam findings, and any diagnostic results supporting the discharge/admit diagnosis, lab results, radiology results, the need for outpatient follow up, a family practitioner, to return to the emergency department if symptoms worsen or persist or if there are any questions or concerns that arise at home. Response to treatment: the patient's symptoms have mildly improved after treatment, and as a result, I will discharge patient. 12/17 20:35 Order name: Urinalysis W/Microscopic; Complete Time: 21:29 cp 12/17 21:29 Interpretation: Normal except: [facility] Extremely Turbid; UGLUC 4+ (Over); UBLD Trace; cp UPROT 1+; UESTR 250; UWBC >50; URBC 5-10; UWBC Clump Occasional; BYST Trace. 12/17 21:15 Order name: Glucose, Ancillary Testing; Complete Time: 21: EDMS 12/17 21:30 Order name: Urine Culture EDMS 12/17 20:35 Order name: XRAY Foot LEFT 3 View; Complete Time: 21:29 cp 12/17 20:35 Order name: XRAY Tib Fib LEFT; Complete Time: 21:29 cp 12/17 20:35 Order name: Lower Extremity Artery Uni Ltd; Complete Time: 21:55 cp 12/17 21:55 Interpretation: Report reviewed. cp 12/17 20:35 Order name: US Extremity Venous Unilateral Ltd; Complete Time: 21:55 cp 12/17 21:55 Interpretation: Report reviewed. cp 12/17 20:36 Order name: XRAY Femur LEFT; Complete Time: 21:29 cp 12/17 20:36 Order name: XRAY Pelvis; Complete Time: 21:29 cp 12/17 20:37 Order name: Accucheck Blood Glucose; Complete Time: 21:10 cp 12/17 22:01 Order name: Post-op Orthopedic Shoe: left small toe fracture; Complete Time: 22:10 cp Administered Medications: 21:17 Drug: Methocarbamol PO 750 mg PO once Route: PO; cp4 21:39 Follow up: Response: No adverse reaction; Pain is decreased cp4 21:17 Drug: Hydrocodone-Acetaminophen PO (7.5 mg-325 mg) 1 tabs PO once; RASS on ADMIN: cp4 Combtv4, Very Agttd3, Agttd2, Rstlss1, AlertClm0, Drwsy-1, Lt Sdtn-2, Mod Sdtn-3, Dp Sdtn-4, UnArsble-5 Route: PO; 21:39 Follow up: Response: No adverse reaction; Pain is decreased cp4 21:55 Drug: Insulin Regular Human Sub-Q 10 units Sub-Q once {Co-Signature: [email or web address] (nhan Klein RN).} Route: Sub-Q; Site: right upper arm; 22:11 Follow up: Response: No adverse reaction cp4 21:56 Drug: Rocephin (cefTRIAXone) IM 1 grams IM once Route: IM; Site: right ventrogluteal; cp4 22:11 Follow up: Response: No adverse reaction cp4 22:10 Drug: fentaNYL (PF) IM 25 mcg IM once Route: IM; Site: right ventrogluteal; cp4 23:04 Follow up: Response: No adverse reaction cp4 Disposition: 12/18 03:19 Co-signature as Attending Physician, Hubert Gonzalez MD I agree with the assessment sp4 and plan of care. I reviewed the patient's care provided by the Advanced Practice Provider and agree with the diagnosis and treatment plan. Disposition Summary: 12/17/24 22:42 Discharge Ordered Notes: Location: Home cp Problem: an ongoing problem cp Symptoms: have improved cp Condition: Stable cp Diagnosis - Lumbago with sciatica, left side cp - UTI/ Urinary tract infection, site not specified cp - Nondisplaced fracture of proximal phalanx of left lesser toe(s) - left small toe cp Followup: cp - With: Private Physician - When: 2 - 3 days - Reason: Recheck today's complaints Discharge Instructions: - Discharge Summary Sheet cp - Chronic Back Pain cp - Sciatica cp - Toe Fracture cp - Urinary Tract Infection, Adult cp - Back Exercises cp Forms: - Medication Reconciliation Form cp - Antibiotic Education cp - Prescription Opioid Use cp - Patient Portal Instructions cp - Leadership Thank You Letter cp Prescriptions: - Celebrex 200 mg Oral Capsule - take 1 capsule ORAL route once daily As needed take with food; 20 capsule; cp Refills: 0, Product Selection Permitted - Macrobid 100 mg Oral Capsule - take 1 capsule ORAL route every 12 hours for 7 days; 14 capsule; Refills: 0, cp Product Selection Permitted - methocarbamol 750 mg Oral tablet - take 1 tablet ORAL route 3 times per day; 30 tablet; Refills: 0, Product cp Selection Permitted Signatures: Dispatcher [employer] EDMS Sriram Robertson PA PA cp Hubert Gonzalez MD MD sp4 Snehla Mata cp4 Brien Coyne RN RN bm8 Catrachito Klein RN rg5 Corrections: (The following items were deleted from the chart) 12/17 20:35 20:35 Tib Fib Left+RAD.RAD.BRZ ordered. EDMS EDMS 20:35 20:35 Lower Extremity Artery Uni Ltd+US.RAD.BRZ ordered. EDMS EDMS 20:36 20:36 Urinalysis W/Microscopic+U.LAB.BRZ ordered. EDMS EDMS 20:36 20:36 Extremity Venous Uni Ltd+US.RAD.BRZ ordered. EDMS EDMS 20:36 20:36 Femur Left+RAD.RAD.BRZ ordered. EDMS EDMS 20:36 20:36 Pelvis+RAD.RAD.BRZ ordered. EDMS EDMS 22:28 22:28 Constitutional: Negative for body aches, chills, fever, poor PO intake, cp cp
[2024-12-17 23:11] VITALS: TEMP 98.4
[2024-12-17 23:14] VITALS: BP 116/87; O2SAT 97
== END 2024-12-17 23:04 | disposition home or self-care (01) ==
LOC: ER 20:10
DX: M54.42 Lumbago with sciatica, left side (principal); N39.0 Urinary tract infection, site not specified; S92.515A Nondisplaced fracture of proximal phalanx of left lesser toe(s), initial encounter for closed fracture
CPT/HCPCS: 87088; 81001; 87086; 82947 ×2; 72170; 73630; 73552; 73590; 93926; 93971; 96372; 99284; J3010; J1815; J0696; 87077; 87186

== ENCOUNTER 2025-01-09 15:43 | Inpatient (IN) | payer OTHER ==
[2025-01-09 16:21] LABS: Absolute Basophils 0.1 K/uL (0-0.5); Absolute Eosinophils 0.2 K/uL (0-0.5); Absolute Lymphocytes (CBC) 1.6 K/uL (0.7-4.9); Absolute Monocytes 0.8 K/uL (0.1-1.3); Absolute Neutrophil 6.1 K/uL (1.8-8.0); Basophils % 0.8 % (0-1.3); Eosinophils % 1.9 % (0-4.4); Hematocrit 38.6 % (36.0-45.0); Hemoglobin 13.4 g/dL (12.0-15.0); Lymphocytes % 18.6 % (15.3-44.8); MCH 30.4 pg (27.0-35.0); MCHC 34.7 g/dL (32.0-36.0); MCV 87.6 fL (80-100); MPV 10.2 fL (7.6-11.3); Monocytes % 8.9 % (3.3-12.3); Neutrophils % 69.8 % (41.7-73.7); Platelets 179 thou/uL (152-406); Red Cell Distribution Width 13.8 % (12.1-15.2)
[2025-01-09] MEDS ORDERED: ONDANSETRON 4 MG/2 ML VIAL ONE (16:28)
[2025-01-09 16:35] LABS: PT Prothrombin Time 11.5 SECONDS (10-13.0); PTT, Activated Partial Thromb 28.6 SECONDS (27.2-37.4); Protime INR 1.01
[2025-01-09 16:44] LABS: Albumin 3.2 g/dL (3.4-5.0); Albumin/Globulin Ratio 0.8 (1.1-1.8); Bilirubin Total 0.5 mg/dL (0.2-1.0); Globulin 3.9 g/dL (2.3-3.5); Influenza A Ag Negative; Influenza B Ag Negative; Protein, Total 7.1 g/dL (6.4-8.2); SARS-CoV-2 Antigen Rapid Res Negative (Negative); Troponin High Sensitivity 13.7 pg/mL (<58.9)
--- NOTE | 2025-01-09 16:51 | RAD REPORT ---
EXAMINATION: ONE VIEW CHEST XR CLINICAL INDICATION: DYSPNEA TECHNIQUE: Frontal chest projection is submitted. Examination is limited by patient positioning and t echnique. COMPARISON: 10/14/2022 FINDINGS: The lungs are well inflated and clear. The heart is upper limit of normal in size. No displaced fract ures identified. IMPRESSION: No acute intrathoracic abnormalities.
--- NOTE | 2025-01-09 19:15 | EDPHYS ---
Physician Documentation [facility] Name: Latoya Pfeiffer Age: 69 yrs Sex: Female : 1955 Arrival Date: 01/09/2025 Time: 15:43 Bed 26 Private MD: ED Physician Sriram Erazo HPI: 01/09 15:54 This 69 yrs old Female presents to ER via Unassigned with complaints of Cough, ms3 Breathing Difficulty, Chest Pain. 15:54 69-year-old female with past medical history of diabetes presents to the emergency ms3 department for cough that has been ongoing for 2 weeks. Patient states she has had shortness of breath and chest pain with nausea since . Patient states her discomfort is a 7/10. Patient denies any alleviating or inciting factors. Patient endorses chills. Patient denies fevers, vomiting, diarrhea. Historical: - Allergies: 15:55 No Known Allergies; cm10 - PMHx: 15:55 diabetes mellitus; Hypertensive disorder; SCIATIC NERVE PAIN; cm10 - PSHx: 15:55 Appendectomy; Cholecystectomy; hysterectomy; right knee sx (ec); cm10 - Immunization history:: Adult Immunizations up to date. - Infectious Disease History:: Denies. - Social history:: Smoking status: unknown. ROS: 15:54 Constitutional: Negative for fever, and chills. Cardiovascular: Negative for chest ms3 pain, and palpitations. Abdomen/GI: Negative for abdominal pain, nausea, vomiting, diarrhea, and constipation, MS/Extremity: Negative for injury and deformity, Skin: Negative for injury, rash, and discoloration, 15:54 Respiratory: Positive for cough, Exam: 15:54 Constitutional: This is a well developed, well nourished patient who is awake, alert, ms3 and in no acute distress. Cardiovascular: Regular rate and rhythm with a normal S1 and S2. No gallops, murmurs, or rubs. Normal PMI, no JVD. No pulse deficits. Respiratory: Lungs have equal breath sounds bilaterally, clear to auscultation and percussion. No rales, rhonchi or wheezes noted. No increased work of breathing, no retractions or nasal flaring. Abdomen/GI: Soft, non-tender, with normal bowel sounds. No distension or tympany. No guarding or rebound. No evidence of tenderness throughout. Skin: Warm, dry with normal turgor. Normal color with no rashes, no lesions, and no evidence of cellulitis. MS/ Extremity: Pulses equal, no cyanosis. Neurovascular intact. Full, normal range of motion. 16:37 ECG was reviewed by the Attending Physician. ms3 Vital Signs: 15:54 BP 115 / 71; Pulse 100; Resp 22; Temp 98.6(O); Pulse Ox 100% on R/A; Weight 85.28 kg; cm10 Height 5 ft. 0 in. ; Pain 7/10; 16:17 Pulse 88; Resp 18; Pulse Ox 100% on R/A; ld1 17:10 BP 122 / 74; Pulse 86; Resp 18; Pulse Ox 100% on R/A; ld1 18:42 BP 119 / 74; Pulse 88; Resp 18; Pulse Ox 100% on R/A; ld1 19:28 BP 122 / 82; Pulse 77; Resp 18; Pulse Ox 100% ; rg5 20:30 BP 125 / 81; Pulse 79; Resp 18; Pulse Ox 100% on R/A; Pain 0/10; rg5 15:54 Body Mass Index 36.72 (85.28 kg, 152.4 cm) cm10 15:54 Pain Scale: Adult cm10 20:30 Pain Scale: Adult rg5 MDM: 15:54 Medical Screening Exam initiated ms3 15:54 Differential Diagnosis: Influenza Upper Respiratory Infection Viral Syndrome Pneumonia. ms3 17:59 Transition of care: After a detail discussion of the patient's case, care is ms3 transferred to Sriram Erazo MD. 19:11 Data reviewed: vital signs, nurses notes, lab test result(s), EKG, radiologic studies, sandra plain films. Consideration of Admission/Observation Patient was admitted/placed on observation. Escalation of care including admission/observation considered. I considered the following discharge prescriptions or medication management in the emergency department Medications were administered in the Emergency Department. See MAR. Independent interpretation of the following test(s) in the Emergency Department EKG: See my EKG interpretation above. Test considered but Not performed: CT: no ct chest. Historians other than the Patient: Family Member: son well informed. Care significantly affected by the following chronic conditions: Diabetes, Hypertension, Obesity. 19:12 Counseling: I had a detailed discussion with the patient and/or guardian regarding the sandra historical points, exam findings, and any diagnostic results supporting the discharge/admit diagnosis, lab results, radiology results, the need for further work-up and treatment in the hospital. 01/09 15:52 Order name: Blood Culture Adult (2) ms3 01/09 15:52 Order name: CBC with Diff; Complete Time: 16:38 ms3 01/09 15:52 Order name: CMP; Complete Time: 16:47 ms3 01/09 15:52 Order name: Lactate w/ 2H reflex if indic.; Complete Time: 16:48 ms3 01/09 15:52 Order name: Protime (+inr); Complete Time: 16:38 ms3 01/09 15:52 Order name: Ptt, Activated; Complete Time: 16:38 ms3 01/09 15:53 Order name: Troponin HS; Complete Time: 16:47 ms3 01/09 15:58 Order name: COVID-19 Ag + Flu A+B Ag; Complete Time: 16:47 ms3 01/09 16:50 Order name: Ghost Lactate-NO COLLECT Timer; Complete Time: 19:07 EDMS 01/09 17:25 Order name: Lactate w/ 2H reflex if indic. ms3 01/09 22:32 Order name: Basic Metabolic Panel EDMS 01/09 22:32 Order name: CBC with Automated Diff EDMS 01/09 22:32 Order name: Troponin High Sensitivity EDMS 01/09 22:32 Order name: Troponin High Sensitivity EDMS 01/09 22:32 Order name: Troponin High Sensitivity EDMS 01/09 22:32 Order name: Troponin High Sensitivity EDMS 01/09 22:32 Order name: Troponin High Sensitivity EDMS 01/10 00:03 Order name: Glucose, Ancillary Testing EDMS 01/09 15:52 Order name: Chest Single View XRAY; Complete Time: 17:01 ms3 01/09 22:32 Order name: Echo with Doppler EDMS 01/09 15:52 Order name: EKG; Complete Time: 15:53 ms3 01/09 15:52 Order name: Accucheck; Complete Time: 16:14 ms3 01/09 15:52 Order name: Cardiac monitoring; Complete Time: 16:14 ms3 01/09 15:52 Order name: EKG - Nurse/Tech; Complete Time: 16:15 ms3 01/09 15:52 Order name: IV Saline Lock - Large Bore; Complete Time: 16:15 ms3 01/09 15:52 Order name: Labs collected and sent; Complete Time: 16:15 ms3 01/09 15:52 Order name: O2 Per Protocol; Complete Time: 16:15 ms3 01/09 15:52 Order name: O2 Sat Monitoring; Complete Time: 16:15 ms3 01/09 15:52 Order name: Vital Signs; Complete Time: 16:15 ms3 EC:37 Rate is 86 beats/min. Rhythm is regular. Right axis deviation noted. ID interval is ms3 normal. QRS interval is prolonged. Clinical impression: NSR w/ Non-specific ST/T Changes and RBBB. Interpreted by me. Reviewed by me. Administered Medications: 16:38 Drug: Ondansetron IVP 4 mg IVP once; over 2 minutes Route: IVP; Site: right antecubital;ld1 21:03 Follow up: Response: No adverse reaction rg5 19:27 Drug: Famotidine IVP 20 mg IVP once; dilute with 10 mL 0.9% NaCl; give over 2 minutes rg5 Route: IVP; Site: right antecubital; 21:02 Follow up: Response: No adverse reaction rg5 19:27 Drug: Zithromax IVPB 500 mg IVPB once over 1 hrs; mix in 250 mL NS Route: IVPB; Infused rg5 Over: 1 hrs; Site: right antecubital; 20:30 Follow up: IV Status: Completed infusion; IV Intake: 250ml rg5 19:27 Drug: Enoxaparin Sub-Q 1 mg/kg Sub-Q once Route: Sub-Q; Site: right lower abdomen; rg5 20:59 Follow up: Response: No adverse reaction rg5 19:28 Drug: Aspirin PO Chewable Tablet 324 mg PO once; 81 mg tablets x 4 Route: PO; rg5 21:02 Follow up: Response: No adverse reaction rg5 Disposition Summary: 01/09/25 19:14 Hospitalization Ordered Notes: Hospitalization Status: Observation sandra Provider: Natalia Rick sandra Condition: Fair sandra Problem: new sandra Symptoms: have improved sandra Bed/Room Type: Standard sandra Location: [facility] ER HOLD(01/09/25 23:09) km Room Assignment: ERHOLD-(01/09/25 23:09) formerly [facility] Diagnosis - Cough sandra - Chest pain, unspecified sandra - Obesity, unspecified sandra - Type 2 diabetes mellitus with hyperglycemia sandra Forms: - Medication Reconciliation Form sandra - SBAR form sandra - Leadership Thank You Letter sandra Signatures: Dispatcher [employer] EDMS Sriram Erazo MD MD cha Sims, Eriberto, DO ms3 Mari Clay, RN RN ld1 Deidra Torrez RN RN cm10 Shayna Sumner [facility] Catrachito Klein, RN RN rg5 Corrections: (The following items were deleted from the chart) 15:53 15:53 BLOOD CULTURE*+BA.LAB.BRZ ordered. EDMS EDMS 15:53 15:53 CBC+H.LAB.BRZ ordered. EDMS EDMS 15:53 15:53 COMPREHENSIVE METABOLIC PANEL+C.LAB.BRZ ordered. EDMS EDMS 15:53 15:53 LACTATE+C.LAB.BRZ ordered. EDMS EDMS 15:53 15:53 PROTIME (+INR)+COAG.LAB.BRZ ordered. EDMS EDMS 15:53 15:53 PTT, ACTIVATED+COAG.LAB.BRZ ordered. EDMT EDMS 23: 19:14 Telemetry/MedSurg (observation) [facility] 23:09 19:14 sandra formerly [facility]
--- NOTE | 2025-01-09 19:15 | ER ---
Nurse's Notes [facility] Name: Latoya Pfeiffer Age: 69 yrs Sex: Female : 1955 Arrival Date: 01/09/2025 Time: 15:43 Bed 26 Private MD: Diagnosis: Cough;Chest pain, unspecified;Obesity, unspecified;Type 2 diabetes mellitus with hyperglycemia Presentation: 01/09 15:54 Chief complaint: Patient states: Chest pain, shortness of breath, cough, chills onset 2 cm10 weeks ago. Coronavirus screen: Client denies travel out of the [place] in the last 14 days. Ebola Screen: Patient denies travel to an Ebola-affected area in the 21 days before illness onset. Initial Sepsis Screen: Does the patient meet any 2 criteria? RR > 20 per min. HR > 90 bpm. Does the patient have a suspected source of infection? No. Patient's initial sepsis screen is negative. Risk Assessment: Do you want to hurt yourself or someone else? Patient reports no desire to harm self or others. Onset of symptoms was January 09, 2025. 15:54 Method Of Arrival: Wheelchair cm10 15:54 Acuity: LUCINA 2 cm10 Triage Assessment: 19:10 Respiratory: Onset: The symptoms/episode began/occurred yesterday, the patient has mild rg5 shortness of breath. 19:10 General: Appears in no apparent distress. comfortable. rg5 Historical: - Allergies: 15:55 No Known Allergies; cm10 - PMHx: 15:55 diabetes mellitus; Hypertensive disorder; SCIATIC NERVE PAIN; cm10 - PSHx: 15:55 Appendectomy; Cholecystectomy; hysterectomy; right knee sx (ec); cm10 - Immunization history:: Adult Immunizations up to date. - Infectious Disease History:: Denies. - Social history:: Smoking status: unknown. Screenin:37 [facility] ED Fall Risk Assessment (Adult) History of falling in the last 3 months, ld1 including since admission No falls in past 3 months (0 pts) Confusion or Disorientation No (0 pts) Intoxicated or Sedated No (0 pts) Impaired Gait No (0 pts) Mobility Assist Device Used No (0 pt) Altered Elimination No (0 pt) Score/Fall Risk Level 0 - 2 = Low Risk Oriented to surroundings, Hourly rounding (assess needs \T\ fall precautionary measures) done. Abuse screen: Denies threats or abuse. Denies injuries from another. Nutritional screening: No deficits noted. Tuberculosis screening: No symptoms or risk factors identified. Assessment: 16:17 General: Appears in no apparent distress. comfortable, Behavior is calm, cooperative, ld1 appropriate for age. Pain: Denies pain. Neuro: Level of Consciousness is awake, alert, obeys commands, Oriented to person, place, time, situation. Cardiovascular: Capillary refill < 3 seconds Patient's skin is warm and dry. Rhythm is sinus rhythm. Respiratory: Reports shortness of breath cough that is Airway is patent Respiratory effort is even, labored, Breath sounds are clear bilaterally. GI: Abdomen is round non-distended. GI: Reports nausea. : No signs and/or symptoms were reported regarding the genitourinary system. EENT: No signs and/or symptoms were reported regarding the EENT system. Derm: No signs and/or symptoms reported regarding the dermatologic system. Musculoskeletal: No signs and/or symptoms reported regarding the musculoskeletal system. 17:10 Reassessment: Patient appears in no apparent distress at this time. No changes from ld1 previously documented assessment. Patient and/or family updated on plan of care and expected duration. Pain level reassessed. Patient is alert, oriented x 3, equal unlabored respirations, skin warm/dry/pink. 18:42 Reassessment: Patient appears in no apparent distress at this time. No changes from ld1 previously documented assessment. Patient and/or family updated on plan of care and expected duration. Pain level reassessed. 19:10 General: Appears in no apparent distress. comfortable, Behavior is calm, cooperative, rg5 appropriate for age. 19:10 Pain: Denies pain. Neuro: Level of Consciousness is awake, alert, obeys commands, rg5 Oriented to person, place, time, situation. Cardiovascular: Reports chest pain, Patient's skin is warm and dry. Rhythm is sinus rhythm. Respiratory: Reports shortness of breath cough that is pain with cough Airway is patent Respiratory effort is even, unlabored, Breath sounds are clear. GI: Abdomen is round non-distended, Reports nausea. : No signs and/or symptoms were reported regarding the genitourinary system. EENT: No signs and/or symptoms were reported regarding the EENT system. Derm: Skin is fragile, Skin is dry, Skin is normal, Skin temperature is warm. Musculoskeletal: Circulation, motion, and sensation intact. Range of motion: intact in all extremities. Vital Signs: 15:54 BP 115 / 71; Pulse 100; Resp 22; Temp 98.6(O); Pulse Ox 100% on R/A; Weight 85.28 kg; cm10 Height 5 ft. 0 in. ; Pain 7/10; 16:17 Pulse 88; Resp 18; Pulse Ox 100% on R/A; ld1 17:10 BP 122 / 74; Pulse 86; Resp 18; Pulse Ox 100% on R/A; ld1 18:42 BP 119 / 74; Pulse 88; Resp 18; Pulse Ox 100% on R/A; ld1 19:28 BP 122 / 82; Pulse 77; Resp 18; Pulse Ox 100% ; rg5 20:30 BP 125 / 81; Pulse 79; Resp 18; Pulse Ox 100% on R/A; Pain 0/10; rg5 15:54 Body Mass Index 36.72 (85.28 kg, 152.4 cm) cm10 15:54 Pain Scale: Adult cm10 20:30 Pain Scale: Adult rg5 ED Course: 15:45 Patient arrived in ED. gl 15:51 Eriberto Clay DO is Attending Physician. ms3 15:52 Mari Clay, RN is Primary Nurse. ld1 15:55 Triage completed. cm10 15:55 Arm band placed on right wrist. Patient placed in an exam room, on a stretcher. cm10 16:15 COVID-19 Ag + Flu A+B Ag Sent. ld1 16:15 Blood Culture Adult (2) Sent. ld1 16:15 Lactate w/ 2H reflex if indic. Sent. ld1 16:37 Patient has correct armband on for positive identification. Placed in gown. Bed in low ld1 position. Call light in reach. Side rails up X2. quality assurance monitor chassis on. Pulse ox on. NIBP on. Door closed. Noise minimized. Warm blanket given. 16:37 No provider procedures requiring assistance completed. Inserted saline lock: 20 gauge ld1 in right antecubital area, using aseptic technique. Blood collected. Flushed with 10 mL NS. 16:45 Chest Single View XRAY In Process Unspecified. EDMS 17:59 Attending Physician role handed off by Eriberto Clay DO ms3 17:59 Sriram Erazo MD is Attending Physician. ms3 19:12 Natalia Rick MD is Hospitalizing Provider. [facility] 20:00 Provided Education on: needs for admit. rg5 21:14 Patient admitted, IV remains in place. intact, No redness/swelling at site. rg5 Administered Medications: 16:38 Drug: Ondansetron IVP 4 mg IVP once; over 2 minutes Route: IVP; Site: right antecubital;ld1 21:03 Follow up: Response: No adverse reaction rg5 19:27 Drug: Famotidine IVP 20 mg IVP once; dilute with 10 mL 0.9% NaCl; give over 2 minutes rg5 Route: IVP; Site: right antecubital; 21:02 Follow up: Response: No adverse reaction rg5 19:27 Drug: Zithromax IVPB 500 mg IVPB once over 1 hrs; mix in 250 mL NS Route: IVPB; Infused rg5 Over: 1 hrs; Site: right antecubital; 20:30 Follow up: IV Status: Completed infusion; IV Intake: 250ml rg5 19:27 Drug: Enoxaparin Sub-Q 1 mg/kg Sub-Q once Route: Sub-Q; Site: right lower abdomen; rg5 20:59 Follow up: Response: No adverse reaction rg5 19:28 Drug: Aspirin PO Chewable Tablet 324 mg PO once; 81 mg tablets x 4 Route: PO; rg5 21:02 Follow up: Response: No adverse reaction rg5 Medication: 16:37 VIS not applicable for this client. ld1 Intake: 20:30 IV: 250ml; Total: 250ml. rg5 Outcome: 19:14 Decision to Hospitalize by Provider. sandra 20:45 Condition: stable rg5 20:45 Admitted to ER Hold. Please see [facility] for further documentation. rg5 20:45 Instructed on the need for admit, 01/10 06:00 Patient left the ED. br2 Signatures: Dispatcher [employer] EDSriram Butt MD MD cha Sims, Marcus, DO DO ms3 Mari Clay RN RN ld1 Deidra Torrez RN RN cm10 Catrachito Klein RN RN rg5 Precious Belle RN RN br2 Vargas, Diana, Reg Reg gl
[2025-01-09] MEDS ORDERED: ENOXAPARIN 80 MG/0.8 ML SQ ONE (19:18)
[2025-01-09] MEDS ORDERED: AZITHROMYCIN 500 MG INJ IVPB ONE (19:19)
[2025-01-09] MEDS ORDERED: FAMOTIDINE 20 MG/2 ML VIAL IV ONE (19:19)
[2025-01-09] MEDS ORDERED: ASPIRIN 81 MG CHEWABLE TABLET ONE (19:19)
[2025-01-09] MEDS ORDERED: NA CHLORIDE 0.9% 250 ML ONE (19:20)
[2025-01-09] MEDS ORDERED: NITROGLYCERIN 0.4 MG/TAB SL PRN (22:26)
[2025-01-09] MEDS ORDERED: MORPHINE 4 MG/ML SYR IV PRN (22:26)
--- NOTE | 2025-01-09 22:31 | P.HP ---
Patient History Date of Service: 01/10/25 Reason for admission: Chest pain History of Present Illness: 69-year-old with a past medical history of diabetes, hyperlipidemia, obesity, hypertension presenting with chest pain for the last 2 weeks. She states the pain is on the left side and feels like tiny pricks in her chest. Associated symptoms include nausea, vomiting, headache, and insomnia. She denies any exposure to sick contacts. She states at the end of November she fell and broke her left pinky toe. She endorses more falls over the last several weeks. She takes a baby aspirin daily. She denies any illicit drug use. She rates the chest pain as a 7 out of 10. Allergies No Known Allergies Allergy (Verified 01/09/25 22:32) Home Medications: Aspirin 81 mg PO DAILY 03/25/12 Escitalopram [Lexapro] 20 mg PO DAILY 01/10/25 Gabapentin 300 mg PO TID 01/10/25 Insulin Glargine,Hum.rec.anlog [Toujeo Max Solostar] 60 unit SQ DAILY 01/10/25 Losartan Potassium [Cozaar] 50 mg PO DAILY 01/10/25 Metformin HCl [Glucophage] 500 mg PO BIDWM 01/10/25 Oxybutynin Chloride [Oxybutynin Chloride ER] 10 mg PO BID 01/10/25 lisinopriL [Lisinopril] 40 mg PO DAILY 01/10/25 - Past Medical/Surgical History Diabetic: Yes -: TIA x2 -: appy, choly - Family History Mother -: Other (see notes) Notes: Thyroid disease - Social History Alcohol use: No CD- Drugs: No Caffeine use: Yes Review of Systems General: As per HPI Eyes: Unremarkable ENT: Unremarkable Respiratory: Cough Cardiovascular: Chest Pain Gastrointestinal: Unremarkable Genitourinary: Unremarkable Musculoskeletal: Unremarkable Integumentary: Unremarkable Neurological: Unremarkable Lymphatics: Unremarkable Physical Examination - Physical Exam General: Alert, In no apparent distress HEENT: Atraumatic, Normocephalic Neck: Supple Respiratory: Clear to auscultation bilaterally Cardiovascular: No edema, Normal pulses Capillary refill: <2 Seconds Gastrointestinal: Normal bowel sounds Musculoskeletal: No clubbing Integumentary: No rashes Neurological: Normal speech, Normal strength at 5/5 x4 extr Lymphatics: No axilla or inguinal lymphadenopathy - Studies Laboratory Data (last 24 hrs) 01/09/25 01/09/25 01/09/25 16:11 16:11 16:11 WBC 8.70 Hgb 13.4 Hct 38.6 Plt Count 179 PT 11.5 INR 1.01 APTT 28.6 Sodium 135 L Potassium 4.0 BUN 17 Creatinine 1.05 H Glucose 230 H Total Bilirubin 0.5 AST 20 ALT 38 Alkaline Phosphatase 103 Assessment and Plan - Plan Chest pain Cough Type 2 diabetes with hyperglycemia Hypertension Obesity Admit to floor Trend troponins, obtain echocardiogram Continue aspirin, start atorvastatin Start sliding scale insulin, obtain A1c Continue losartan As needed nitroglycerin DVT prophylaxis with heparin - Advance Directives Does patient have a Living Will: No Does patient have a Durable POA for Healthcare: No
[2025-01-10] MEDS ORDERED: HEPARIN 5000 UNIT/ML 1 ML VIAL ONE (00:23)
[2025-01-10] MEDS ORDERED: ALPRAZOLAM 0.25 MG TABLET ONE (00:23)
[2025-01-10] MEDS: HEPARIN 5000 UNIT/ML 1 ML VIAL SQ SCH (00:30)
[2025-01-10] MEDS: ALPRAZOLAM 0.25 MG TABLET PO PRN (00:31)
[2025-01-10 01:19] VITALS: BMI 36.7
[2025-01-10] MEDS ORDERED: GLUCAGON 1 MG/VIAL IM PRN (02:54)
[2025-01-10] MEDS ORDERED: D10W 125 ML IV PRN (02:54)
[2025-01-10 06:35] LABS: Absolute Basophils 0.1 K/uL (0-0.5); Absolute Eosinophils 0.3 K/uL (0-0.5); Absolute Neutrophil 7.3 K/uL (1.8-8.0); Basophils % 1.1 % (0-1.3); Eosinophils % 2.4 % (0-4.4); Hematocrit 37.7 % (36.0-45.0); Hemoglobin 13.1 g/dL (12.0-15.0); Lymphocytes % 18.9 % (15.3-44.8); MCH 30.8 pg (27.0-35.0); MCHC 34.6 g/dL (32.0-36.0); MCV 88.9 fL (80-100); MPV 10.5 fL (7.6-11.3); Monocytes % 9.4 % (3.3-12.3); Neutrophils % 68.2 % (41.7-73.7); Platelets 173 thou/uL (152-406); RBC Red Blood Cell Count 4.25 M/uL (3.86-4.86); Red Cell Distribution Width 14.1 % (12.1-15.2)
[2025-01-10 07:03] LABS: Anion Gap 10.7 mEq/L (5.0-15.0); Potassium 4.7 mEq/L (3.5-5.1); Troponin High Sensitivity 15.8 pg/mL (<58.9)
[2025-01-10] MEDS: INSULIN REGULAR (HUMAN) 100 UNIT/ML SQ SCH (07:30)
[2025-01-10] MEDS: GABAPENTIN 300 MG CAP PO SCH (08:08)
[2025-01-10] MEDS: ASPIRIN 81 MG CHEWABLE TABLET PO SCH (08:08)
[2025-01-10] MEDS: LOSARTAN POTASSIUM 50 MG TABLET PO SCH (08:08)
[2025-01-10] MEDS: OXYBUTYNIN ER 5 MG TAB PO SCH (08:08)
[2025-01-10] MEDS: PNEUMOCOCCAL VACCINE 0.5 ML IMVAC ONE (08:11)
[2025-01-10] MEDS ORDERED: ASPIRIN EC 81 MG TAB PO SCH (09:00)
--- NOTE | 2025-01-10 10:48 | P.PN ---
Date of Service: 01/10/25 Subjective: She reports some difficulty taking a deep breath. Chest discomfort able to be recreated with palpation Had stress test in March 2024 which was okay per patient reports shes been falling more frequently over the last 2 months. ~6-7 falls since October. she reports n/v/d that started which has since improved. Physical Exam: GEN: Alert, oriented, NAD CV: Regular rate and rhythm, no edema Pulm: Nonlabored respirations on room air, clear bilaterally ABD: soft, nontender, nondistended MSK: tenderness to palpation of anterior left chest wall Neuro: Normal speech, normal affect Problem List: Frequent falls Chest discomfort, suspect MSK etiology NIDDM2 Hypertension Hx Knee surgery (2023) Hx LLE DVT (2023) Hx TIA Frequent falls Chest discomfort, suspect MSK etiology On admission, presents with SOB associated with cough and chest discomfort for ~2 weeks. She reports ~6-7 falls since October. Most recently fell this past at her PCP office. She had recent UTI ~1 month ago to which she completed course of Nitrofurantoin. Denies dysuria or urinary symptoms this hospitalization. Dealt with some nausea/vomiting/diarrhea that started which has since improved. 01/10 - Chest discomfort able to be recreated on palpation of anterior chest wall. Suspect MSK etiology. Do not suspect cardiac etiology. Troponin's negative x3. EKG was okay. Had stress test back in March 2024 which was okay per patient No signs of active infection. Flu/Covid Negative. No leukocytosis or fever. CXR negative for any acute findings. will hold off on CTA to r/o PE for now given worsening renal function. and less likely to have PE -no hypoxia, no tachypnea, no tachycardia at this time Repeat labs in AM pain control; norco 5/325 added Vitals stable. NIDDM2 accu-cheks, SSI a1c 9.3 Hypertension Hx Knee surgery (2023) Hx LLE DVT (2023) Hx TIA Reports history of LLE DVT prior to surgery last year after she broke her knee. Was advised to stay on anticoagulation for what sounds like life by Dr. Villalobos however hasn't been taking eliquis d/t cost She was told to take baby aspirin instead had venous and arterial doppler ~3 weeks ago which were negative for any acute findings. confirm home meds, restart as appropriate VTE: heparin sq Code: Full Dispo: Home, ~24hrs Time Spent Managing Pts Care (In Minutes): 55
[2025-01-10] MEDS: HYDROCODONE/APAP 5/325 MG TAB PO PRN (11:06)
--- NOTE | 2025-01-10 12:36 | EKG ---
Test Date: 2025-01-09 Test Time: 16:01:38 Ecology Professor: Leydi LEWIS MEASUREMENT RESULTS: Intervals: Rate: 86 NM: 150 QRSD: 116 QT: 370 QTc: 442 [place]: P: 24 NM: 150 QRS: 139 T: 34 INTERPRETIVE STATEMENTS: Normal sinus rhythm Right bundle branch block Left posterior fascicular block Bifascicular block Possible Inferior infarct, age undetermined Abnormal ECG Compared to ECG 10/14/2022 17:38:09 Right bundle-branch block now present Left posterior fascicular block now present Bifascicular block now present Myocardial infarct finding now present Electronically Signed On 01-10-25 12:35:[address]
[2025-01-10] MEDS: ATORVASTATIN 40 MG TAB PO SCH (20:05)
[2025-01-11 04:54] LABS: Absolute Basophils 0.1 K/uL (0-0.5); Absolute Eosinophils 0.2 K/uL (0-0.5); Absolute Lymphocytes (CBC) 1.3 K/uL (0.7-4.9); Absolute Monocytes 0.6 K/uL (0.1-1.3); Absolute Neutrophil 4.8 K/uL (1.8-8.0); Basophils % 1.1 % (0-1.3); Eosinophils % 2.8 % (0-4.4); Hematocrit 34.7 % (36.0-45.0); Hemoglobin 11.9 g/dL (12.0-15.0); Lymphocytes % 18.5 % (15.3-44.8); MCH 30.6 pg (27.0-35.0); MCHC 34.3 g/dL (32.0-36.0); MPV 11.2 fL (7.6-11.3); Monocytes % 8.4 % (3.3-12.3); Neutrophils % 69.2 % (41.7-73.7); Platelets 143 thou/uL (152-406); Red Cell Distribution Width 13.9 % (12.1-15.2)
[2025-01-11 04:56] LABS: Anion Gap 8.9 mEq/L (5.0-15.0); Magnesium 1.6 mg/dL (1.6-2.4); Potassium 4.9 mEq/L (3.5-5.1)
[2025-01-11] MEDS: ESCITALOPRAM 20 MG TAB PO SCH (10:37)
--- NOTE | 2025-01-11 12:14 | RAD REPORT ---
EXAMINATION: CTA CHEST PE CLINICAL INDICATION: Shortness of breath TECHNIQUE: 100 cc 370 Isovue administered intravenously. This examination was performed according to an angiographic protocol with 3D post-processing. This involves 3D reconstructions, MIPs, volume rendered images and/or shaded surface rendering. One or more of the following dose reduction techniqu es were used: Automated exposure control, adjustment of the mA and/or kV according to patient size, and/or iterative reconstruction. Unless otherwise specified, incidental findings do not require dedic ated imaging follow-up. [id number]. COMPARISON: 2018 FINDINGS: A pulmonary embolus is not seen. An aortic aneurysm not noted. No pleural effusion. No pericardial effusion. Lungs are clear. IMPRESSION: No evidence of a pulmonary embolism
--- NOTE | 2025-01-11 12:47 | ECHO ---
HEIGHT: 5 ft 0 in WEIGHT: 188 lb 0.163 oz DATE OF STUDY: 01/11/[address]: Natalia Rick MD 2-DIMENSIONAL: YES M.MODE: YES DOPPLER: YES COLOR FLOW: YES TDS: PORTABLE: YES DEFINITY: BUBBLE STUDY: DIAGNOSIS: CHEST PAIN CARDIAC HISTORY: CATHERIZATION: SURGERY: PROSTHETIC VALVE: PACEMAKER: MEASUREMENTS (cm) DIASTOLIC (NORMALS) SYSTOLIC (NORMALS) IVSd 1.0 (0.6-1.2) LA Diam (1.9-4.0) LVEF 60-65% LVIDd 2.8 (3.5-5.7) LVIDs 2.1 (2.0-3.5) %FS 25% LVPWd 0.9 (0.6-1.2) Ao Diam 3.3 (2.0-3.7) 2 DIMENSIONAL ASSESSMENT: RIGHT ATRIUM: NORMAL LEFT ATRIUM: NORMAL RIGHT VENTRICLE: NORMAL LEFT VENTRICLE: NORMAL TRICUSPID VALVE: NORMAL MITRAL VALVE: NORMAL PULMONIC VALVE: NORMAL AORTIC VALVE: NORMAL PERICARDIAL EFFUSION: NONE AORTIC ROOT: NORMAL LEFT VENTRICULAR WALL MOTION: NORMAL DOPPLER/COLOR FLOW: NORMAL COMMENTS: 1. NORMAL LEFT VENTRICULAR SYSTOLIC FUNCTION, EJECTION FRACTION 60-65%, NORMAL WALL MOTION 2. NORMAL DIASTOLIC FUNCTION TECHNOLOGIST: VERONICA MENESES
[2025-01-11 17:09] VITALS: BP 126/69; TEMP 98.1
[2025-01-11 17:19] VITALS: O2SAT 96
--- NOTE | 2025-01-12 06:39 | P.DS ---
Admission Date: 01/10/25 Discharge Date: 01/11/25 Disposition: ROUTINE DISCHARGE Discharge Condition: GOOD Reason for Admission: Chest pain Brief History of Present Illness: 69yo F, PMH: diabetes, hyperlipidemia, obesity, hypertension Patient presenting with chest pain for the last 2 weeks. She states the pain is on the left side and feels like tiny pricks in her chest. Associated symptoms include nausea, vomiting, headache, and insomnia. She denies any exposure to sick contacts. She states at the end of November she fell and broke her left pinky toe. She endorses more falls over the last several weeks. She takes a baby asp irin daily. She denies any illicit drug use. She rates the chest pain as a 7 out of 10. Hospital Course: Problem List: Frequent falls Chest discomfort, suspect MSK etiology NIDDM2 Hypertension Hx Knee surgery (2023) Hx LLE DVT (2023) Hx TIA Physician discharge instructions: Patient presented with weakness, cough and chest discomfort for 2 weeks most consistent with musculoskeletal pain likely from frequent falls and cough. On exam, her chest pain was able to be recreated on palpation of anterior chest wall. She states she been feeling more weak since October and has had 6-7 falls since then. She most recently fell this past at her PCP office. Chest xray was negative on admission for any acute findings. There were no signs of active infection. Flu/COVID screen were negative. She remained afebrile without leukocytosis throughout hospitalization. Cardiac etiology ruled out. Troponin's were negative x3. EKG was okay. She also reports having stress test done in summer 2023 which was negative per patient. Patient was monitored overnight, breathing okay on room air, vitals stable, afebrile without leukocytosis and was deemed stable for discharge. Repeat labs on day of discharge showed resolution of mild ABEL. CTA chest was obtained on day of discharge was negative for PE, noted clear lungs. She reported taking ibuprofen 3-4 times a day chronically for extended period of time to help with inflammation. Advised patient to avoid chronic daily use of ibuprofen/NSAIDs to avoid risk of getting gastric stress ulcer or GERD/heartburn. Recommend trial of topical Diclofenac (voltaren) cream to help with inflammation and pain. Apply cream topically to affected areas. Medications: Tylenol #3 as needed for pain Diclofenac (Voltaren) cream Follow up: PCP 3-5 days Please call to schedule / confirm appointments Physical Exam: GEN: Alert, oriented, NAD CV: Regular rate and rhythm, no edema Pulm: Nonlabored respirations on room air, clear bilaterally ABD: soft, nontender, nondistended MSK: tenderness to palpation of anterior left chest wall Neuro: Normal speech, normal affect Vital Signs/Physical Exam: Temp Pulse Resp BP Pulse Ox 98.1 F 82 16 126/69 96 01/11/25 16:00 01/11/25 16:00 01/11/25 16:00 01/11/25 16:00 01/11/25 16:00 Laboratory Data at Discharge: WBC 6.90 thou/uL (4.3-10.9) 01/11/25 04:16 Hgb 11.9 g/dL (12.0-15.0) L D 01/11/25 04:16 Hct 34.7 % (36.0-45.0) L 01/11/25 04:16 Plt Count 143 thou/uL (152-406) L 01/11/25 04:16 PT 11.5 SECONDS (10-13.0) 01/09/25 16:11 INR 1.01 01/09/25 16:11 APTT 28.6 SECONDS (27.2-37.4) 01/09/25 16:11 Sodium 133 mEq/L (136-145) L D 01/11/25 04:16 Potassium 4.9 mEq/L (3.5-5.1) 01/11/25 04:16 BUN 22 mg/dL (7-18) H 01/11/25 04:16 Creatinine 1.06 mg/dL (0.55-1.02) H 01/11/25 04:16 Glucose 262 mg/dL (74-106) H 01/11/25 04:16 Magnesium 1.6 mg/dL (1.6-2.4) 01/11/25 04:16 Total Bilirubin 0.5 mg/dL (0.2-1.0) 01/09/25 16:11 AST 20 U/L (15-37) 01/09/25 16:11 ALT 38 U/L (13-56) 01/09/25 16:11 Alkaline Phosphatase 103 U/L (45-117) 01/09/25 16:11 Triglycerides Cancelled 01/10/25 Unknown Cholesterol Cancelled 01/10/25 Unknown HDL Cholesterol Cancelled 01/10/25 Unknown Cholesterol/HDL Ratio Cancelled 01/10/25 Unknown Home Medications: Aspirin 81 mg PO DAILY 03/25/12 Escitalopram [Lexapro*] 20 mg PO DAILY 01/10/25 Gabapentin 300 mg PO TID 01/10/25 Insulin Glargine,Hum.rec.anlog [Toujeo Max Solostar] 60 unit SQ DAILY 01/10/25 Losartan Potassium [Cozaar*] 50 mg PO DAILY 01/10/25 Metformin HCl [Glucophage*] 500 mg PO BIDWM 01/10/25 Oxybutynin Chloride [Oxybutynin Chloride ER] 10 mg PO BID 01/10/25 lisinopriL [Lisinopril] 40 mg PO DAILY 01/10/25 Codeine/APAP [Tylenol W/Codeine #3 tab] 1 tab PO Q6HP PRN #10 tab 01/11/25 Codeine/APAP [Tylenol W/Codeine #3 tab] 1 tab PO Q6HP PRN #10 tab 01/11/25 New Medications: Codeine/APAP [Tylenol W/Codeine #3 tab] 1 tab PO Q6HP PRN #10 tab PRN Reason: Pain Codeine/APAP [Tylenol W/Codeine #3 tab] 1 tab PO Q6HP PRN #10 tab PRN Reason: Pain Physician Discharge Instructions: Physician discharge instructions: Patient presented with weakness, cough and chest discomfort for 2 weeks most consistent with musculoskeletal pain likely from frequent falls and cough. On exam, her chest pain was able to be recreated on palpation of anterior chest wall. She states she been feeling more weak since October and has had 6-7 falls since then. She most recently fell this past at her PCP office. Chest xray was negative on admission for any acute findings. There were no signs of active infection. Flu/COVID screen were negative. She remained afebrile without leukocytosis throughout hospitalization. Cardiac etiology ruled out. Troponin's were negative x3. EKG was okay. She also reports having stress test done in summer 2023 which was negative per patient. Patient was monitored overnight, breathing okay on room air, vitals stable, afebrile without leukocytosis and was deemed stable for discharge. Repeat labs on day of discharge showed resolution of mild ABEL. CTA chest was obtained on day of discharge was negative for PE, noted clear lungs. She reported taking ibuprofen 3-4 times a day chronically for extended period of time to help with inflammation. Advised patient to avoid chronic daily use of ibuprofen/NSAIDs to avoid risk of getting gastric stress ulcer or GERD/heartburn. Recommend trial of topical Diclofenac (voltaren) cream to help with inflammation and pain. Apply cream topically to affected areas. Medications: Tylenol #3 as needed for pain Diclofenac (Voltaren) cream Follow up: PCP 3-5 days Please call to schedule / confirm appointments Followup: Christen Chiu FNP [Primary Care Provider] - Time spent managing pt's care (in minutes): 45
== END 2025-01-11 19:02 | disposition home or self-care (01) | DRG 313 ==
LOC: ER 15:43 → ERHOLD 22:26 → 4TH 01-10 05:08 → OBSVTOIN 01-10 13:38
PROVIDERS: ADMIT Family Medicine; ATTEND Hospitalist
DX: R07.89 Other chest pain (principal); N17.9 Acute kidney failure, unspecified; I10 Essential (primary) hypertension; E11.65 Type 2 diabetes mellitus with hyperglycemia; E66.9 Obesity, unspecified; E78.5 Hyperlipidemia, unspecified; R29.6 Repeated falls; Z79.4 Long term (current) use of insulin; Z91.81 History of falling; Z11.52 Encounter for screening for COVID-19; Z79.82 Long term (current) use of aspirin; Z68.36 Body mass index [BMI] 36.0-36.9, adult; Z90.49 Acquired absence of other specified parts of digestive tract; Z79.84 Long term (current) use of oral hypoglycemic drugs; Z79.899 Other long term (current) drug therapy; Z86.73 Personal history of transient ischemic attack (TIA), and cerebral infarction without residual deficits; Z86.718 Personal history of other venous thrombosis and embolism
CPT/HCPCS: 36415; 71045; 71275; 80048; 80053; 80061; 82947; 83036; 83605; 83735; 84484; 85025; 85610; 85730; 87040; 87428; 90471; 90732; 93005; 93306; 96365; 96372; 96375; 99285; G0378; J1644; J1815; J2405; J7050; Q9967